=== PATIENT | female | born 1970 | race Caucasian/White ===

== ENCOUNTER → 2021-03-24 10:58 | Outpatient (BNVA) | payer BC, SELFPAY | PROVIDERS: PCP Internal Medicine; Visit Provider Psychiatry & Neurology Neurology ==

== ENCOUNTER → 2021-05-27 09:48 | Outpatient (BNVA) | payer BC, SELFPAY | PROVIDERS: PCP Internal Medicine; Visit Provider Psychiatry & Neurology Neurology | DX: G43.909 Migraine, unspecified, not intractable, without status migrainosus (principal); G47.00 Insomnia, unspecified; F45.8 Other somatoform disorders; R06.83 Snoring | CPT/HCPCS: 99212 ==

== ENCOUNTER 2021-11-17 21:31 | Emergency (ER) | payer OTHER, SELFPAY ==
--- NOTE | ~2021-11-17 | XR_ITS ---
EXAMINATION: XR CHEST CLINICAL INFORMATION: SOB COMPARISON: None TECHNIQUE: 2 views of the chest were obtained. FINDINGS: No significant abnormality is noted involving the heart, lungs, mediastinum, bony thorax or soft tissues. XR/XR chest 2V IMPRESSION: Unremarkable chest examination.
[2021-11-17 21:40] VITALS: BP 153/100; PULSE 119; RESP 20; TEMP 36.8; O2SAT 97; BMI 32.2
[2021-11-17 23:09] LABS: MANUAL DIFF FLAG NO
[2021-11-17 23:11] LABS: Basophils Percent Auto 0.4 % (0-2); Eosinophils Absolute Auto 0.1 X10*3/uL (0.0-0.4); Eosinophils Percent Auto 1.4 % (0-4); Hematocrit 41.5 % (37.0-47.0); Hemoglobin 13.9 g/dl (12.0-16.0); Imm Gran Abs Auto 0.02 X10*3/uL (0.00-0.03); Imm Gran Pct Auto 0.2 % (0.0-0.4); Lymphocytes Absolute Auto 3.7 X10*3/uL (1.2-4.9); Lymphocytes Percent Auto 39.1 % (20-40); Mean Corpuscular HGB Conc 33.5 g/dl (31.0-35.0); Mean Corpuscular Hemoglobin 30.3 pg (27.0-33.0); Mean Corpuscular Volume 90.4 fL (80.0-98.0); Mean Platelet Volume 9.1 fL (9.4-12.3); Monocytes Absolute Auto 0.7 X10*3/uL (0.1-1.2); Monocytes Percent Auto 7.7 % (2-11); Neutrophils Absolute Auto 4.9 x10*3/uL (2.0-8.3); Neutrophils Percent Auto 51.2 % (45-73); Platelet Count 349 X10*3/uL (160-400); Red Blood Count 4.59 X10*6/uL (4.20-5.50); Red Cell Distribution Width 13.4 % (11.0-16.0); White Blood Count 9.5 X10*3/uL (4.8-10.8)
[2021-11-17 23:33] LABS: Alanine Aminotransferase 21 U/L (0-31); Albumin Level 4.2 g/dL (3.5-5.0); Alkaline Phosphatase 41 U/L (39-117); Anion Gap 15 (12-20); Aspartate Amino Transferase 21 U/L (5-31); Bilirubin Total 0.4 mg/dL (0.0-1.0); Blood Urea Nitrogen 17 mg/dL (9-16); Calcium 9.4 mg/dL (8.4-10.2); Carbon Dioxide 24 mmol/L (22-29); Chloride 106 mmol/L (96-108); Creatinine Clr Calc Pharmacy 79.8; Estimated Glomerular Filt Rate > 60; Glucose Random 89 mg/dL (60-115); Potassium 4.3 mmol/L (3.3-5.1); Sodium 141 mmol/L (135-145); Total Protein 7.3 g/dL (6.5-8.0)
[2021-11-18 01:16] VITALS: BP 163/99; PULSE 98; RESP 13; TEMP 36.9; O2SAT 95
--- NOTE | 2021-11-18 01:52 | ED_ITS ---
HPI - URI/Sore Throat General Chief Complaint: Upper Respiratory Symptoms Stated Complaint: asthma, cough, nausea Time Seen by Provider: 11/18/21 01:35 History of Present Illness HPI Narrative: Patient is a 51-year-old female presents today with have a history asthma. History of COVID back in January 2021. Presents today with coughing congestion upper respiratory symptoms. Ongoing for the last few months. Patient is not vaccinated. Claims that the albuterol is not working. Was given multiple courses of steroid on an off. Patient from home. No change in environment. No hospitalization. No history of congestive heart failure. Related Data Home Medications Medication Instructions Recorded Confirmed albuterol sulfate 2.5 mg/3 mL 2.5 mg inhalation Q6H 03/24/21 (0.083 %) solution for nebulization cetirizine 10 mg tablet 10 mg PO DAILY PRN 03/24/21 eletriptan 40 mg tablet 40 mg PO Q2-4H PRN 03/24/21 levonorgestrel 0.15 mg-ethinyl 1 tab PO DAILY 03/24/21 estradiol 0.03 mg tablet metformin 500 mg tablet 500 mg PO DAILY 03/24/21 mometasone 100 mcg/actuation HFA 1 puff inhalation BID 03/24/21 aerosol inhaler norethindrone acetate 1 mg-ethinyl 1 tab PO DAILY 03/24/21 estradiol 20 mcg tablet (Loestrin) phentermine 15 mg capsule 15 mg PO DAILY 03/24/21 simvastatin 40 mg tablet 40 mg PO BEDTIME 03/24/21 topiramate 50 mg tablet 50 mg PO BID 03/24/21 trazodone 50 mg tablet 50 mg PO DAILY 03/24/21 Previous Rx's Medication Instructions Recorded gabapentin 100 mg capsule See Rx Instructions PO BEDTIME 90 05/27/21 days #270 caps magnesium glycinate 100 mg tablet 200 mg PO BEDTIME #180 tabs 05/27/21 riboflavin (vitamin B2) 400 mg 400 mg PO QAM #30 tabs 05/27/21 tablet azithromycin 250 mg tablet See Rx Instructions PO .COMPLEX 11/18/21 upper resp infection #6 tabs prednisone 20 mg tablet 40 mg PO DAILY #10 tabs 11/18/21 Allergies Allergy/AdvReac Type Severity Reaction Status Date / Time SEASONAL ALLERGIES Allergy Mild SNEEZING Uncoded 11/17/21 21:42 RUNNY NOSE Review of Systems Review of Systems: Positive coughing upper respiratory symptoms Not vaccinated Yes all other systems are reviewed and are negative [facility] Past Medical History Attestation statement: The following information was validated with the patient. Medical History Allergic rhinitis Asthma Hyperlipidemia Insomnia Irritable bowel syndrome Lumbar spondylosis Migraines Obesity Surgical History H/O wrist surgery Family History Family History Mother Thyroid disease CAD (coronary artery disease) Father Stroke Angina at rest Maternal Grandmother Breast cancer Recurrent strokes Social History Social History Alcohol intake: current Alcohol intake frequency: holidays/special occasions only Patient Tobacco Use Status: Never used Tobacco Advance Directives: No Advance Directives Information Provided: No Physical Exam Vital Signs: Vital Signs: Last Vital Signs Temp 98.4 F 11/18/21 02:57 Pulse 69 11/18/21 02:57 Resp 17 11/18/21 02:57 BP 135/94 H 11/18/21 02:57 Pulse Ox 96 11/18/21 02:57 O2 Del Method 11/18/21 02:57 BMI result Body Mass Index 32.2 Appearance: Alert. Oriented X3. No acute distress. Eyes: Pupils equal, round and reactive to light. ENT: Pharynx normal. Neck: Normal inspection. Neck supple. No lymph nodes noted. No crepitus CVS: Normal heart rate and rhythm. Pulses normal. Normal S1 and S2 Respiratory: No respiratory distress. Breath sounds normal. No Wheezing. No rales Abdomen: Soft and nontender. No rigidity. No distention. good BS x4 Skin: Skin warm and dry. Normal skin color. Normal skin turgor. Extremities: No lower extremity edema. Neurovascular intact to all extremities. No Lacerations. No Rash Neuro: Oriented X 3. No motor deficit. No sensory deficit. Moving all extermities. No slurred speech MDM - URI/Sore Throat MDM Narrative Medical decision making narrative: O2 sat 99% on room air. No distress. Positive coughing repetitively will get an x-ray. Will go ahead and check COVID status as patient not immunized. In stable condition. Lungs are clear O2 sats 99% on RA COVID test was negative Medical Records Attestation: I reviewed the patient's medical records. Lab Data Attestation: I reviewed the patient's lab results. Result diagrams: 11/17/21 23:05 11/17/21 23:05 Labs: Lab Results 11/17/21 11/17/21 11/18/21 Range/Units 23:05 23:05 02:21 WBC 9.5 (4.8-10.8) X10*3/uL RBC 4.59 (4.20-5.50) X10*6/uL Hgb 13.9 (12.0-16.0) g/dl Hct 41.5 (37.0-47.0) % MCV 90.4 (80.0-98.0) fL MCH 30.3 (27.0-33.0) pg MCHC 33.5 (31.0-35.0) g/dl RDW 13.4 (11.0-16.0) % Plt Count 349 (160-400) X10*3/uL MPV 9.1 L (9.4-12.3) fL Immature Gran % (Auto) 0.2 (0.0-0.4) % Neut % (Auto) 51.2 (45-73) % Lymph % (Auto) 39.1 (20-40) % [place] % (Auto) 7.7 (2-11) % Eos % (Auto) 1.4 (0-4) % Baso % (Auto) 0.4 (0-2) % Lymph # (Auto) 3.7 (1.2-4.9) X10*3/uL [place] # (Auto) 0.7 (0.1-1.2) X10*3/uL Eos # (Auto) 0.1 (0.0-0.4) X10*3/uL Baso # (Auto) 0.0 (0.0-0.2) X10*3/uL Abs Immat Gran (auto) 0.02 (0.00-0.03) X10*3/uL Absolute Neuts (auto) 4.9 (2.0-8.3) x10*3/uL Absolute Nucleated RBC 0.000 (0.0-0.012) X10*3/uL Nucleated RBC % (auto) 0.0 (0.0-0.2) /100WBC Sodium 141 (135-145) mmol/L Potassium 4.3 (3.3-5.1) mmol/L Chloride 106 (96-108) mmol/L Carbon Dioxide 24 (22-29) mmol/L Anion Gap 15 (12-20) BUN 17 H (9-16) mg/dL Creatinine 0.77 (0.5-1.4) mg/dL Estim Creat Clear Calc 79.8 Estimated GFR > 60 Random Glucose 89 (60-115) mg/dL Calcium 9.4 (8.4-10.2) mg/dL Total Bilirubin 0.4 (0.0-1.0) mg/dL AST 21 (5-31) U/L ALT 21 (0-31) U/L Alkaline Phosphatase 41 (39-117) U/L Total Protein 7.3 (6.5-8.0) g/dL Albumin 4.2 (3.5-5.0) g/dL COVID-19 (FERNANDO) Negative (Negative) COVID-19 Clin Com See Note Discharge Plan Discharge Clinical Impression: Cough, Asthma Patient Disposition: Home, Self-Care Instructions: Asthma (ED) Prescriptions: New azithromycin 250 mg tablet See Rx Instructions .ROUTE .COMPLEX Qty: 6 0RF Rx Instructions: take 500 mg today (day 1), then 250 mg for 4 days (days 2-5) prednisone 20 mg tablet 40 mg PO DAILY Qty: 10 0RF No Action simvastatin 40 mg tablet 40 mg PO BEDTIME cetirizine 10 mg tablet 10 mg PO DAILY PRN trazodone 50 mg tablet 50 mg PO DAILY phentermine 15 mg capsule 15 mg PO DAILY Rx Instructions: must administer 2 hours after breakfast eletriptan 40 mg tablet 40 mg PO Q2-4H PRN Rx Instructions: do not exceed 2 doses per 24 hrs albuterol sulfate 2.5 mg /3 mL (0.083 %) solution for nebulization 2.5 mg inhalation Q6H mometasone 100 mcg/actuation HFA aerosol inhaler 1 puff inhalation BID levonorgestrel-ethinyl estrad 0.15-0.03 mg tablet 1 tab PO DAILY norethindrone ac-eth estradiol [Loestrin 03/24 ()] 1-20 mg-mcg tablet 1 tab PO DAILY metformin 500 mg tablet 500 mg PO DAILY topiramate 50 mg tablet 50 mg PO BID gabapentin 100 mg capsule See Rx Instructions PO BEDTIME 90 Days Qty: 270 6RF Rx Instructions: 1-3 capsules PO bedtime; magnesium glycinate 100 mg tablet 200 mg PO BEDTIME Qty: 180 6RF riboflavin (vitamin B2) 400 mg tablet 400 mg PO QAM Qty: 30 6RF Referrals: Annette Lara MD [Primary Care Provider] -
[2021-11-18] MEDS: predniSONE 20 MG TABLET 60 MG PO (02:12)
[2021-11-18 02:42] LABS: COVID-19 Test Negative (Negative); IDNOW Serial# 16C4AD1C
[2021-11-18 02:57] VITALS: BP 135/94; PULSE 69; RESP 17; TEMP 36.9; O2SAT 96
== END 2021-11-19 02:58 | disposition home or self-care (01) ==
PROVIDERS: Emergency Provider Emergency Medicine Emergency Medical Services; PCP Family Medicine
DX: J45.909 Unspecified asthma, uncomplicated (principal); Z20.822 Contact with and (suspected) exposure to COVID-19; E78.5 Hyperlipidemia, unspecified; E66.9 Obesity, unspecified; Z68.32 Body mass index [BMI] 32.0-32.9, adult; Z79.02 Long term (current) use of antithrombotics/antiplatelets
CPT/HCPCS: 36415; 71046; 80053; 85025; 87635; 99283

== ENCOUNTER 2021-12-08 10:33 | Inpatient (IN) | payer OTHER, SELFPAY ==
--- NOTE | ~2021-12-08 | CT_ITS ---
EXAMINATION: CT ABDOMEN AND PELVIS WITHOUT CONTRAST CLINICAL INFORMATION: Right flank pain. Question stones COMPARISON: CT abdomen pelvis 10/25/2014 TECHNIQUE: Multidetector volumetric imaging was performed from the superior aspect of the liver through the pubic symphysis. Sagittal and coronal reformatted images were obtained on the technologist's workstation. This CT examination was performed using dose optimization techniques as appropriate, variously including the following: *Automated exposure control *Adjustment of mA and/or kV according to patient size (this includes techniques or standardized protocols for targeted exams where dose is matched to indication/reason for exam; i.e. extremities or head) *Use of iterative reconstruction technique DLP: 584 mGy-cm FINDINGS: LUNG BASES: The visualized lung bases are unremarkable. LIVER, GALLBLADDER, AND BILIARY TREE: The liver is normal in size, shape, and attenuation. No focal hepatic lesion or biliary ductal dilatation is present. The gallbladder is unremarkable with no evidence of radiopaque gallstones, gallbladder wall thickening, or obvious pericholecystic inflammatory changes. PANCREAS: Unremarkable. SPLEEN: Unremarkable. ADRENAL GLANDS: Unremarkable. KIDNEYS AND URETERS: 5 mm right proximal ureteral stone with mild hydronephrosis. 4 mm nonobstructing right midpole renal calculus. No other renal calculi. No renal lesion. No perinephric stranding or collection. BLADDER: Unremarkable. GASTROINTESTINAL TRACT: Mild colonic diverticulosis primarily involving the ascending colon. No evidence of acute diverticulitis. No dilated bowel loops. No bowel wall thickening. Normal appendix. No ascites or free air. ABDOMINAL WALL: No significant hernia is appreciated. LYMPH NODES: No lymphadenopathy. VASCULAR: Normal caliber abdominal aorta. Minimal vascular calcification. PELVIC VISCERA: Unremarkable. OSSEOUS STRUCTURES: Unremarkable. CT/CT abdomen pelvis wo IV con IMPRESSION: 1. 5 mm right proximal ureteral stone with mild right hydronephrosis. 2. 4 mm nonobstructing right renal calculus.
--- NOTE | ~2021-12-08 | FL_ITS ---
EXAMINATION: XR FLUOROSCOPY WITH IMAGES CLINICAL INFORMATION: Right-sided retrograde exam COMPARISON: Previous CT of the abdomen and pelvis 12/08/2021 TECHNIQUE: Fluoroscopy performed by Dr. Chavez Corral. Fluoroscopy time: 25 seconds. Cumulative Dose: 8.3 mGy. DAP: Gycm2. Images: 3. FINDINGS: Initial image demonstrates contrast opacification of the right renal collecting system and proximal ureter which is slightly dilated. There is a filling defect in the right renal pelvis questionable for stone. Second image demonstrates a wire in the right proximal ureter. Final image demonstrates the proximal end of the internal ureteral stent in the right renal pelvis. FL/FL guidance in OR IMPRESSION: Fluoroscopy guidance for right urologic procedure.
[2021-12-08 10:56] VITALS: BP 152/92; PULSE 89; RESP 20; TEMP 37.7; O2SAT 95; BMI 33.2
[2021-12-08 11:12] LABS: Basophils Percent Auto 0.3 % (0-2); Eosinophils Percent Auto 0.4 % (0-4); Hematocrit 42.2 % (37.0-47.0); Hemoglobin 14.1 g/dl (12.0-16.0); Imm Gran Abs Auto 0.04 X10*3/uL (0.00-0.03); Imm Gran Pct Auto 0.4 % (0.0-0.4); Lymphocytes Absolute Auto 2.3 X10*3/uL (1.2-4.9); MANUAL DIFF FLAG NO; Mean Corpuscular HGB Conc 33.4 g/dl (31.0-35.0); Mean Corpuscular Hemoglobin 29.9 pg (27.0-33.0); Mean Corpuscular Volume 89.4 fL (80.0-98.0); Mean Platelet Volume 8.9 fL (9.4-12.3); Monocytes Absolute Auto 0.4 X10*3/uL (0.1-1.2); Monocytes Percent Auto 3.9 % (2-11); Neutrophils Absolute Auto 6.8 x10*3/uL (2.0-8.3); Platelet Count 316 X10*3/uL (160-400); Red Blood Count 4.72 X10*6/uL (4.20-5.50); Red Cell Distribution Width 13.3 % (11.0-16.0); White Blood Count 9.6 X10*3/uL (4.8-10.8)
[2021-12-08 11:32] LABS: Alanine Aminotransferase 16 U/L (0-31); Albumin Level 4.2 g/dL (3.5-5.0); Alkaline Phosphatase 34 U/L (39-117); Anion Gap 14 (12-20); Aspartate Amino Transferase 21 U/L (5-31); Bilirubin Direct 0.3 mg/dL (0.0-0.5); Bilirubin Total 0.8 mg/dL (0.0-1.0); Blood Urea Nitrogen 12 mg/dL (9-16); Calcium 8.9 mg/dL (8.4-10.2); Carbon Dioxide 19 mmol/L (22-29); Chloride 107 mmol/L (96-108); Creatinine Clr Calc Pharmacy 86.7; Estimated Glomerular Filt Rate > 60; Glucose Random 90 mg/dL (60-115); Lipase 16 U/L (8-78); Sodium 136 mmol/L (135-145); Total Protein 7.2 g/dL (6.5-8.0)
[2021-12-08 11:55] LABS: Appearance Urine Cloudy; Color Urine Dark Yellow; Glucose Urine UA Negative (Negative); Leukocyte Esterase Urine Trace (Negative); Nitrite Urine Negative (Negative); PH 5.5 (5.0-9.0); Specific Gravity - Urine 1.015 (1.005-1.025); UMIC TRIGGER UACC YES; Urine Blood Large (3+) (Negative); Urine Ketones Negative (Negative); Urine Protein 30 (1+) mg/dL (Neg-Trace)
[2021-12-08 11:59] LABS: UPreg QC Valid YES; Urine Pregnancy NEGATIVE (NEGATIVE)
[2021-12-08 12:15] LABS: Bacteria Urine 1+ (None Seen); Hyaline Casts Urine 0-2 /LPF (0-2); RBC Urine >20 /HPF (0-2); UACC Culture Trigger YES
[2021-12-08] MEDS: Acetaminophen 325 MG TABLET 975 MG PO (20:12)
--- NOTE | 2021-12-08 21:38 | ED_ITS ---
HPI - Abdominal Pain General Chief Complaint: Abdominal Pain Stated Complaint: Stomach & Back Pain Time Seen by Provider: 12/08/21 21:29 Source: patient Mode of arrival: ambulatory Limitations: no limitations History of Present Illness HPI narrative: Patient history of kidney stone about 20 years ago comes here pain the right flank area right upper yesterday off and on getting worse started as dull pain now intermittently become sharp assisted with nausea no vomiting no hematuria no fever no chills Related Data Home Medications Medication Instructions Recorded Confirmed albuterol sulfate 2.5 mg/3 mL 2.5 mg inhalation Q6H 03/24/21 (0.083 %) solution for nebulization eletriptan 40 mg tablet 40 mg PO Q2-4H PRN 03/24/21 levonorgestrel 0.15 mg-ethinyl 1 tab PO DAILY 03/24/21 estradiol 0.03 mg tablet mometasone 100 mcg/actuation HFA 1 puff inhalation BID 03/24/21 12/09/21 aerosol inhaler norethindrone acetate 1 mg-ethinyl 1 tab PO DAILY 03/24/21 estradiol 20 mcg tablet (Loestrin) simvastatin 40 mg tablet 40 mg PO BEDTIME 03/24/21 12/09/21 trazodone 50 mg tablet 50 mg PO DAILY 03/24/21 levalbuterol tartrate 45 2 puff inhalation Q4-6H 12/09/21 12/09/21 mcg/actuation aerosol inhaler norethindrone 1 mg-ethinyl 1 tab PO DAILY 12/09/21 12/09/21 estradiol 10 mcg (24)-iron 10 mcg(2) tablet (Lo Loestrin Fe) tiotropium bromide 18 mcg capsule 1 cap inhalation DAILY 12/09/21 12/09/21 with inhalation device (Spiriva with HandiHaler) Previous Rx's Medication Instructions Recorded gabapentin 100 mg capsule See Rx Instructions PO BEDTIME 90 05/27/21 days #270 caps magnesium glycinate 100 mg tablet 200 mg PO BEDTIME #180 tabs 05/27/21 riboflavin (vitamin B2) 400 mg 400 mg PO QAM #30 tabs 05/27/21 tablet prednisone 20 mg tablet 40 mg PO DAILY #10 tabs 11/18/21 Allergies Allergy/AdvReac Type Severity Reaction Status Date / Time pseudoephedrine Allergy Palpitation Verified 12/08/21 10:59 [From Uliafetone] s SEASONAL ALLERGIES Allergy Mild SNEEZING Uncoded 11/17/21 21:42 RUNNY NOSE Review of Systems Review of Systems Yes all other systems are reviewed and are negative [facility] Past Medical History Medical History Allergic rhinitis Asthma Hyperlipidemia Insomnia Irritable bowel syndrome Lumbar spondylosis Migraines Obesity Surgical History H/O wrist surgery Family History Family History Mother Thyroid disease CAD (coronary artery disease) Father Stroke Angina at rest Maternal Grandmother Breast cancer Recurrent strokes Social History Social History Alcohol intake: current Alcohol intake frequency: holidays/special occasions on ly Patient Tobacco Use Status: Never used Tobacco Advance Directives: No Advance Directives Information Provided: No Patient : No Physical Exam ED Vital Signs: Vital Signs - 24 hr 12/08/21 10:56 12/08/21 22:08 12/09/21 00:02 Temperature 99.9 F 97.7 F 98.1 F Pulse Rate 89 86 83 Respiratory Rate 20 14 17 Blood Pressure 152/92 H 140/96 H 136/94 H Pulse Oximetry 95 96 96 Oxygen Delivery Method Room Air Room Air Room Air BMI result Body Mass Index 33.2 Appearance: Alert. Oriented X3. Mild distress. Eyes: No pallor or icterus ENT: Pharynx normal. Oral Mucosa moist Neck: Normal inspection. Neck supple. CVS: Normal heart rate and rhythm. Pulses normal. Respiratory: No respiratory distress. Equal air entry bilateral, no wheezing/rales/rhonchi Abdomen: Soft and nontender. Bowel sounds are present, no mass palpable, right CVA tenderness ++ Skin: Skin warm and dry. Normal skin color. Normal skin turgor. Extremities: No lower extremity edema. No calf tenderness Neuro: Oriented X 3. No motor deficit. MDM - Abdominal Pain MDM Narrative Medical decision making narrative: [id number] with 5 mm right proximal ureteral stone with hydronephrosis will refer to urologist for lithotripsy patient received 8 mg of morphine Toradol Flomax still complaining of pain feel uncomfortable going home will admit patient under urology service case discussed Dr. Steward agree for admission Differential Diagnosis Differential diagnosis: Likely renal colic Lab Data Attestation: I reviewed the patient's lab results. Result diagrams: 12/08/21 11:06 12/08/21 11:30 Labs: Lab Results 12/08/21 12/08/21 12/08/21 Range/Units 11:06 11:30 11:41 WBC 9.6 (4.8-10.8) X10*3/uL RBC 4.72 (4.20-5.50) X10*6/uL Hgb 14.1 (12.0-16.0) g/dl Hct 42.2 (37.0-47.0) % MCV 89.4 (80.0-98.0) fL MCH 29.9 (27.0-33.0) pg MCHC 33.4 (31.0-35.0) g/dl RDW 13.3 (11.0-16.0) % Plt Count 316 (160-400) X10*3/uL MPV 8.9 L (9.4-12.3) fL Immature Gran % (Auto) 0.4 (0.0-0.4) % Neut % (Auto) 71.0 (45-73) % Lymph % (Auto) 24.0 (20-40) % [place] % (Auto) 3.9 (2-11) % Eos % (Auto) 0.4 (0-4) % Baso % (Auto) 0.3 (0-2) % Lymph # (Auto) 2.3 (1.2-4.9) X10*3/uL [place] # (Auto) 0.4 (0.1-1.2) X10*3/uL Eos # (Auto) 0.0 (0.0-0.4) X10*3/uL Baso # (Auto) 0.0 (0.0-0.2) X10*3/uL Abs Immat Gran (auto) 0.04 H (0.00-0.03) X10*3/uL Absolute Neuts (auto) 6.8 (2.0-8.3) x10*3/uL Absolute Nucleated RBC 0.000 (0.0-0.012) X10*3/uL Nucleated RBC % (auto) 0.0 (0.0-0.2) /100WBC Sodium 136 (135-145) mmol/L Potassium 4.0 (3.3-5.1) mmol/L Chloride 107 (96-108) mmol/L Carbon Dioxide 19 L (22-29) mmol/L Anion Gap 14 (12-20) BUN 12 (9-16) mg/dL Creatinine 0.72 (0.5-1.4) mg/dL Estim Creat Clear Calc 86.7 Estimated GFR > 60 Random Glucose 90 (60-115) mg/dL Calcium 8.9 (8.4-10.2) mg/dL Total Bilirubin 0.8 (0.0-1.0) mg/dL Direct Bilirubin 0.3 (0.0-0.5) mg/dL AST 21 (5-31) U/L ALT 16 (0-31) U/L Alkaline Phosphatase 34 L (39-117) U/L Total Protein 7.2 (6.5-8.0) g/dL Albumin 4.2 (3.5-5.0) g/dL Lipase 16 (8-78) U/L Urine Color Dark Yellow Urine Appearance Cloudy Urine pH 5.5 (5.0-9.0) Ur Specific [place] 1.015 (1.005-1.025) Urine Protein 30 (1+) H (Neg-Trace) mg/dL Urine Glucose (UA) Negative (Negative) mg/dL Urine Ketones Negative (Negative) mg/dL Urine Blood Large (3+) H (Negative) Urine Nitrite Negative (Negative) Ur Leukocyte Esterase Trace H (Negative) Urine RBC >20 H (0-2) /HPF Urine WBC 6-10 H (0-5) /HPF Ur Squamous Epith Cells 11-20 (0-2) /HPF Urine Bacteria 1+ (None Seen) Hyaline Casts 0-2 (0-2) /LPF Urine Test (NEGATIVE) 12/08/21 Range/Units 11:41 WBC (4.8-10.8) X10*3/uL RBC (4.20-5.50) X10*6/uL Hgb (12.0-16.0) g/dl Hct (37.0-47.0) % MCV (80.0-98.0) fL MCH (27.0-33.0) pg MCHC (31.0-35.0) g/dl RDW (11.0-16.0) % Plt Count (160-400) X10*3/uL MPV (9.4-12.3) fL Immature Gran % (Auto) (0.0-0.4) % Neut % (Auto) (45-73) % Lymph % (Auto) (20-40) % [place] % (Auto) (2-11) % Eos % (Auto) (0-4) % Baso % (Auto) (0-2) % Lymph # (Auto) (1.2-4.9) X10*3/uL [place] # (Auto) (0.1-1.2) X10*3/uL Eos # (Auto) (0.0-0.4) X10*3/uL Baso # (Auto) (0.0-0.2) X10*3/uL Abs Immat Gran (auto) (0.00-0.03) X10*3/uL Absolute Neuts (auto) (2.0-8.3) x10*3/uL Absolute Nucleated RBC (0.0-0.012) X10*3/uL Nucleated RBC % (auto) (0.0-0.2) /100WBC Sodium (135-145) mmol/L Potassium (3.3-5.1) mmol/L Chloride (96-108) mmol/L Carbon Dioxide (22-29) mmol/L Anion Gap (12-20) BUN (9-16) mg/dL Creatinine (0.5-1.4) mg/dL Estim Creat Clear Calc Estimated GFR Random Glucose (60-115) mg/dL Calcium (8.4-10.2) mg/dL Total Bilirubin (0.0-1.0) mg/dL Direct Bilirubin (0.0-0.5) mg/dL AST (5-31) U/L ALT (0-31) U/L Alkaline Phosphatase (39-117) U/L Total Protein (6.5-8.0) g/dL Albumin (3.5-5.0) g/dL Lipase (8-78) U/L Urine Color Urine Appearance Urine pH (5.0-9.0) Ur Specific [place] (1.005-1.025) Urine Protein (Neg-Trace) mg/dL Urine Glucose (UA) (Negative) mg/dL Urine Ketones (Negative) mg/dL Urine Blood (Negative) Urine Nitrite (Negative) Ur Leukocyte Esterase (Negative) Urine RBC (0-2) /HPF Urine WBC (0-5) /HPF Ur Squamous Epith Cells (0-2) /HPF Urine Bacteria (None Seen) Hyaline Casts (0-2) /LPF Urine Test NEGATIVE (NEGATIVE) Imaging Data CT scan - abdomen: Attestation: I personally reviewed and interpreted this imaging study as follows: Radiologist's impression: CT/CT abdomen pelvis wo IV con IMPRESSION: ? 1. 5 mm right proximal ureteral stone with mild right hydronephrosis. 2. 4 mm nonobstructing right renal calculus.? ? Discharge Plan Discharge Clinical Impression: Calculus of kidney Patient Disposition: Admitted As Inpatient
[2021-12-08] MEDS: Tamsulosin HCL 0.4 MG CAPSULE PO (22:03)
[2021-12-08] MEDS: Morphine Sulfate 4 MG/ML CARTRIDGE IVPUSH ×2 (22:03→23:01)
[2021-12-08] MEDS: 0.9 % Sodium Chloride 1,000 ML 999 ML IV (22:03)
[2021-12-08] MEDS: ondansetron HCL 4 MG/2 ML VIAL IVPUSH (22:03)
[2021-12-08 22:08] VITALS: BP 140/96; PULSE 86; RESP 14; TEMP 36.5; O2SAT 96
[2021-12-08] MEDS: Ketorolac Tromethamine 30 MG/ML VIAL IVPUSH (22:15)
--- NOTE | 2021-12-08 22:16 | PC.NURSE ---
Pt aox4. Breaths are even and unlabored. Skin is warm pink and dry. Reports right sided flank pain, 2/10. Pt medication and aware of plan of care. Will continue to monitor.
--- NOTE | 2021-12-08 23:05 | PC.NURSE ---
Pt aox4 with family at the bedside. Breaths are even and unlabored. Pt reports right flank abd pain, 4/10. Pt medicated as ordered. Will continue to monitor.
[2021-12-09] VITALS (15 sets, daily range): BP systolic 101–140; BP diastolic 68–100; PULSE 71–99; RESP 12–20; TEMP 36.2–36.8; O2SAT 96–99
--- OUTSIDE RECORDS SUMMARY | 2021-12-09 00:50 | XMS_ITS | Continuity of Care Document ---
:1970 Author Organization [facility] Address [address] [place] [id number]- Care Team Providers Name Role Phone Perry Valencia MD Primary Care Physician [place] [facility] [place] 02/07/21 - 02/07/[address] [address]- Encounter Diagnosis COVID-19 (Final) - 02/07/21 Discharge Disposition: A-D/C Home Attending Physician: Halima Arora MD Admitting Physician: Halima Arora MD Referring Physician: Not on Staff, Referring MD Allergies, Adverse Reactions, Alerts Substance Reaction Severity Status NKA Active Medications Colace sodium 100 mg oral capsule 1 capsule = 100 mg, By Mouth, 2 times a day, PRN for constipation, # 20 capsule, 0 Refills, Maintenance, Capsule Start Date: 06/27/10 Status: OrderedCrutches See Instructions, # 1 pair, Maintenance, WBAT left leg, 09/11/12 10:16:35 Start Date: 09/11/12 Status: Ordereddoxycycline hyclate 100 mg oral capsule 1 capsule = 100 mg, By Mouth, 2 times a day, # 6 capsule, 0 Refills, Maintenance, Capsule Start Date: 06/23/10 Stop Date: 06/26/10 Status: Orderedeletriptan 40 mg oral tablet 1 tablet = 40 mg, By Mouth, Once, PRN as needed for migraine headache, may repeat dose once in 2 hours, # 6 tablet, 0 Refills, Maintenance, 11/25/20 13:10:00 EDT, Tablet, Partial fill upon patient request if the prescription is for a schedule II opioi... Start Date: 11/25/20 Status: Orderedibuprofen 800 mg oral tablet 1 tablet = 800 mg, By Mouth, 3 times a day, PRN Pain, # 30 tablet, 5 Refills, Maintenance, Tablet Start Date: 06/23/10 Status: OrderedLo Loestrin Fe oral tablet 1 tablet, By Mouth, Daily, # 84 tablet, 0 Refills, Maintenance, 11/25/20 13:08:00 EDT, Tablet, Partial fill upon patient request if the prescription is for a schedule II opioid drug. Start Date: 11/25/20 Status: OrderedmetFORMIN 500 mg oral tablet 1 tablet = 500 mg, By Mouth, Daily, with meals, # 30 tablet, 0 Refills, Maintenance, 11/25/20 13:14:00 EDT, Tablet, Partial fill upon patient request if the prescription is for a schedule II opioid drug. Start Date: 11/25/20 Status: Orderedphentermine 37.5 mg oral capsule 1 capsule = 37.5 mg, By Mouth, Daily in AM, at least one hour after meals, 0 Refills, Maintenance, 11/25/20 13:12:00 EDT, Capsule, Partial fill upon patient request if the prescription is for a schedule II opioid drug. Start Date: 11/25/20 Status: OrderedPrenatal Multivitamins By Mouth, Daily, 0 Refills, Maintenance Start Date: 12/24/10 Status: OrderedRobitussin CoughGels 15 mg oral capsule 1 capsule = 15 mg, By Mouth, Every 8 hours, PRN as needed for cough, for 3 days, # 12 capsule, 0 Refills, Acute 02/10/21 18:52:00 EST, 02/07/21 18:52:00 EST, Capsule, [facility]/pharmacy #[id number], Partial fill upon patient request if the prescription is for a s... Start Date: 02/07/21 Stop Date: 02/10/21 Status: Orderedsimvastatin 40 mg oral tablet 40 mg, 1, tablet, By Mouth, Daily at bedtime, # 30 tablet, Refills 0, Maintenance, 11/25/20 13:10:00EDT, Partial fill upon patient request if the prescription is for a schedule II opioid drug. Start Date: 11/25/20 Status: Orderedtopiramate 50 mg oral tablet 1 tablet = 50 mg, By Mouth, 2 times a day, # 60 tablet, 0 Refills, Maintenance, 11/25/20 13:13:00 EDT, Tablet, Partial fill upon patient request if the prescription is for a schedule II opioid drug. Start Date: 11/25/20 Status: OrderedtraZODone 50 mg oral tablet 25 mg, 0.5, tablet, By Mouth, Daily at bedtime, # 15 tablet, Refills 0, Maintenance, 11/25/20 13:12:00 EDT, Partial fill upon patient request if the prescription is for a schedule II opioid drug. Start Date: 11/25/20 Status: OrderedValium 5 mg oral tablet 1 tablet = 5 mg, By Mouth, 4 times a day, PRN for anxiety, # 10 tablet, 0 Refills, Maintenance, Tablet Start Date: 06/27/10 Status: OrderedXopenex Neb, 3 times a day, 0 Refills, Maintenance, 09/03/13 10:35:08 Start Date: 09/03/13 Status: Ordered Problem List Condition Effective Dates Status Health Status Informant Anxiety(Confirmed) Active Asthma(Confirmed) Active Migraine(Confirmed) Active Results Radiology Reports Exam Date Time Procedure Performing Provider Status 02/07/21 1:31 PM Chest 2 Views Frontal and Lat Hernan , Tonia; Au th (Verified) Notes:(Chest 2 Views Frontal and Lat) Reason For Exam: CoughRESULT: Chest 2 Views Frontal and Lat Chest 2 Views Frontal and Lat Hx of Present Illness: Covid + 11 26. Placed on doxy for PNA. Not getting better. COMPARISON: Chest radiograph 01/06/2016. FINDINGS: LINES AND TUBES: None. LUNGS AND PLEURA: Bilateral faint linear midlung opacities. Normal pulmonary vascularity. No pleural effusion. No pneumothorax. HEART, MEDIASTINUM AND ALICE: Heart is normal in size. Normal upper mediastinal and hilar contour. BONES AND SOFT TISSUES: No acute abnormality. IMPRESSION: Bilateral midzone linear opacities may most likely represent atelectasis versus consolidation. I have personally reviewed the images and I agree with this report. WSN: [id number] Ordering Physician: Jaquelin Moeller Dictated By: Rasta Reardon MD Dictated Date/Time: 02/07/21 2:29 pm Reviewed By: Rolando Romano MD Signed By: Rolando Romano MD Signed Date/Time: 02/07/21 2:34 pm Transcribed By: ALEJANDRA Transcribed Date/Time: 02/07/21 1:50 pm Vital Signs Most recent to oldest 1 2 3 [Reference Range]: Height 154 cm 154 cm (02/07/21 7:06 PM) (02/07/21 2:35 PM) Weight 63 kg 63 kg (02/07/21 7:06 PM) (02/07/21 2:35 PM) Oxygen Saturation [94-100 99 % 100 % 100 % %] (02/07/21 7:06 PM) (02/07/21 5:00 PM) (02/07/21 3:3 0 PM) Pulse Rate [55-90 bpm] 99 bpm 108 bpm 106 bpm *H* *H* *H* (02/07/21 7:06 PM) (02/07/21 5:00 PM) (02/07/21 3:3 0 PM) Body Mass Index 26.56 [18.5-24.99] *H* (02/07/21 7:06 PM) Blood Pressure 138/94 mm Hg 154/99 mm Hg 114/84 mm Hg [90-138/55-84 mm Hg] (02/07/21 7:06 PM) *H* (02/07/21 3:30 PM) (02/07/21 5:00 PM) Respiratory Rate [16-30 27 br/min 24 br/min 24 br/mi n br/min] (02/07/21 7:06 PM) (02/07/21 5:00 PM) (02/07/21 3:3 0 PM) Temperature [96.8-100.4 98.8 DegF 98.4 DegF 98.3 Deg F DegF] (02/07/21 7:06 PM) (02/07/21 2:35 PM) (02/07/21 11: 58 AM) Mode of Delivery (Oxygen) Room air Room air Room a ir (02/07/21 7:06 PM) (02/07/21 5:00 PM) (02/07/21 3:3 0 PM) Blood pressure sites Arm, right Arm, left Arm, left (02/07/21 7:06 PM) (02/07/21 5:00 PM) (02/07/21 3:3 0 PM) Temperature Route Oral Oral Oral (02/07/21 7:06 PM) (02/07/21 2:35 PM) (02/07/21 11: 58 AM) Dry Weight 63 kg 63 kg (02/07/21 7:06 PM) (02/07/21 2:35 PM) Weight Obtained Via Patient/family stated (02/07/21 2:35 PM) Social History Social History Type Response Smoking Status Never (less than 100 in life time) entered on: 02/07/21 Sex
--- OUTSIDE RECORDS SUMMARY | 2021-12-09 00:50 | XMS_ITS | Continuity of Care Document ---
:1970 Author Organization [address] [place] [address]- Care Team Providers Name Role Phone Annie CARCAMO, Perry Primary Care Physician [place] [facility] [place] - 12/25/[address], [address] [place], [place] [address] Attending Physician: Farhan Sierra Admitting Physician: AdmFarhan blackman Referring Physician: Admtr, ArEileen Allergies, Adverse Reactions, Alerts Substance Reaction Severity [...] 0 Refills, Maintenance Start Date: 12/24/10 Status: Orderedsimvastatin 40 mg oral tablet 40 [...]
--- OUTSIDE RECORDS SUMMARY | 2021-12-09 00:50 | XMS_ITS | Continuity of Care Document ---
:1970 Author Organization [address] [place] [address]- Care Team Providers Name Role Phone Annie CARCAMO, Perry Primary Care Physician Encounter [facility] [place] Date(s): 10/08/20 - 11/07/[address], [address] [place], [place] [address] Allergies, Adverse Reactions, Alerts Substance Reaction Severity [...] Start Date: 06/23/10 Stop Date: 06/26/10 Status: Orderedibuprofen 800 mg oral tablet 1 tablet = 800 mg, By Mouth, 3 times a day, PRN Pain, # 30 tablet, 5 Refills, Maintenance, Tablet Start Date: 06/23/10 Status: OrderedPercocet-5/325 325 mg-5 mg oral tablet 1 tablet, By Mouth, Every 4 hours, PRN for pain, # 20 tablet, 0 Refills, Maintenance, Tablet Start Date: 06/27/10 Status: OrderedPrenatal Multivitamins By Mouth, Daily, 0 Refills, Maintenance Start Date: 12/24/10 Status: OrderedPulmicort Flexhaler Inhalation, 2 times a day, 0 Refills, Maintenance, 09/03/13 10:35:15 Start Date: 09/03/13 Status: OrderedValium 5 mg oral tablet 1 [...]
--- OUTSIDE RECORDS SUMMARY | 2021-12-09 00:50 | XMS_ITS | Continuity of Care Document ---
:1970 Author Organization [facility] Address [address] [facility], [address] [place] [address]- Care Team Providers Name Role Phone Annie CARCAMO, Perry Primary Care Physician Encounter 11/28/21 - 12/05/21 [facility] [address], [address] [place] [address]- Attending Physician: Melina Rodriguez MD Admitting Physician: Melina Rodriguez MD Referring Physician: Melina Rodriguez MD Allergies, Adverse Reactions, Alerts No Known Allergies Medications Colace sodium 100 mg oral capsule [...] Date: 09/03/13 Status: Ordered Problem List Condition Confirmation Course Effective Dates Status Health Stat us Informant Anxiety Confirmed Active Asthma Confirmed Active Migraine Confirmed Active Social History Social History Type Response Smoking Status Never (less than 100 in life time) entered on: 02/07/21 Sex Patient Care team information PersonnelName: Annie CARCAMO, Perry Address: Address: [address] [place] [address]-
--- OUTSIDE RECORDS SUMMARY | 2021-12-09 00:50 | XMS_ITS | Continuity of Care Document ---
:1970 Author Organization [facility] Address [address], [facility] [address] [place] [address]- Care Team Providers Name Role Phone Perry Valencia MD Primary Care Physician Encounter 09/17/20 - 09/24/20 [facility] [address], [facility] [address] [place] [address]- Attending Physician: Perry Valencia MD Admitting Physician: Perry Valencia MD Referring Physician: Perry Valencia MD Allergies, Adverse Reactions, Alerts Substance Reaction [...]
--- OUTSIDE RECORDS SUMMARY | 2021-12-09 00:50 | XMS_ITS | Continuity of Care Document ---
:1970 Author Organization [address], [address] [place] [address]- Care Team Providers Name Role Phone Annie CARCAMO, Perry Primary Care Physician Encounter [facility] [place](s): 11/25/20 - 12/02/[address], [address] [place], [place] [address] Attending Physician: Ross Veras MD Referring Physician: Darrell Vergara Allergies, Adverse Reactions, Alerts Substance Reaction Severity [...] Informant Anxiety(Confirmed) Active Asthma(Confirmed) Active Migraine(Confirmed) Active Vital Signs Most recent to oldest [Reference Range]: 1 Height 155 cm (11/25/20 1:02 PM) Weight 72.9 kg (11/25/20 1:02 PM) Body Mass Index [18.5-24.99] 30.34 *>HHI* (11/25/20 1:02 PM)
[2021-12-09 01:03] LABS: COVID-19 Test Negative (Negative)
[2021-12-09] MEDS: Dextrose 5 % and Lactated Ring 1,000 ML 125 ML IVCONT ×2 (01:29→12:15)
--- NOTE | 2021-12-09 01:35 | PC.NURSE ---
Pt aox4. Breaths even and unlabored. Reports pain has improved, 03/14. Eye covering provided. Will continue to monitor.
[2021-12-09] MEDS: Ketorolac Tromethamine 15 MG/ML VIAL IVPUSH ×3 (01:40→19:15)
--- NOTE | 2021-12-09 04:48 | PC.NURSE ---
Pt asleep with even and unlabored breaths and equal chest rise. Will continue to monitor.
--- NOTE | 2021-12-09 07:00 | PC.NURSE ---
report received from night nurse EJ Goldsmith Pt resting comfortably in bed, went to the restroom and walked with a steady gait. Currently has D5LR running at 125 an hour, IV patent and asymptomatic. Currently reports no pain
[2021-12-09] MEDS: 0.9 % Sodium Chloride Flush 3 ML SYRINGE IVFLUSH (07:08)
--- NOTE | 2021-12-09 10:21 | P.HPGS_ITS ---
History of Present Illness History of Present Illness Date of Service: 12/09/21 Chief complaint: Right Ureteral Stone, Right Hydronephrosis, pain Narrative: Carmen Washburn is a 51 year old female the patient has history of kidney stone about 20 years ago comes here pain the right flank area right upper yesterday off and on getting worse started as dull pain now intermittently become sharp assisted with nausea no vomiting no hematuria no fever no chills Review of Systems Review of Systems: Yes all other systems are reviewed and are negative [facility] Past Medical History Medical History Allergic rhinitis Asthma Hyperlipidemia Insomnia Irritable bowel syndrome Lumbar spondylosis Migraines Obesity Family History Family History Mother Thyroid disease CAD (coronary artery disease) Father Stroke Angina at rest Maternal Grandmother Breast cancer Recurrent strokes Surgical History Surgical History H/O wrist surgery Social History Social History Household Members: Family Housing: House Do you presently have visiting nurse or other home services: No Alcohol intake: current Alcohol intake frequency: holidays/special occasions only Patient Tobacco Use Status: Never used Tobacco Use of substances other than those prescribed or required for medical reasons: No Have you been hit, kicked, punched, or otherwise hurt by someone within the past year? If so, by whom?: No Advance Directives: No Advance Directives Information Provided: No Do you have thoughts of harming others: None Do you have a plan to hurt others: No Plan Recently lost weight without trying: No Eating poorly because of decreased appetite: No Nutrition Risks: No Nutritional Risk Patient : No : No Poor oral hygiene: No Meds Allergies Allergy/AdvReac Type Severity Reaction Status Date / Time pseudoephedrine Allergy Palpitation Verified 12/08/21 10:59 [From Boris] cathie SEASONAL ALLERGIES Allergy Mild SNEEZING Uncoded 11/17/21 21:42 RUNNY NOSE Active Medications: Current Medications Acetaminophen (Acetaminophen 325 Mg Tablet) 650 mg PO Q6H PRN PRN Reason: Headache Atorvastatin Calcium (Atorvastatin Calcium 20 Mg Tablet) 20 mg PO BEDTIME ATA Gabapentin (Gabapentin 100 Mg Capsule) 0 mg PO BEDTIME ATA Hydromorphone HCl (Hydromorphone Hcl 1 Mg/Ml Syringe) 0.5 mg IVPUSH Q3H PRN PRN Reason: Pain, Moderate (Pain Scale 4-6 Dextrose/Lactated Ringer's (D5lr) 1,000 mls @ 125 mls/hr IVCONT .Q8H [facility] Last Infusion: 12/09/21 08:22 Dose: Infused Dextrose/Lactated Ringer's (D5lr) 1,000 mls @ 100 mls/hr IVCONT .Q10H [facility] Ketorolac Tromethamine (Ketorolac Tromethamine 15 Mg/Ml Vial) 15 mg IVPUSH Q6H [facility] Last Admin: 12/09/21 07:08 Dose: 15 mg Non-Formulary Medication (Levalbuterol Tartrate) 2 puff INHALE Q4H [facility] Non-Formulary Medication (Mometasone) 1 puff INHALE BID [facility] Non-Formulary Medication (Norethindrone-E.Estradiol-Iron [Lo Loestrin Fe]) 1 tab PO DAILY [facility] Non-Formulary Medication (Riboflavin (Vitamin B2)) 400 mg PO 0900 [facility] Sodium Chloride (0.9 % Sodium Chloride Flush 3 Ml Syringe) 3 ml IVFLUSH QSHIFT [facility] Last Admin: 12/09/21 07:08 Dose: 3 ml Sodium Chloride (0.9 % Sodium Chloride Flush 3 Ml Syringe) 3 ml IVFLUSH QSHIFT [facility] Tiotropium [place] (Tiotropium [place] 18 Mcg Cap.W.Dev) 1 puff INHALE DAILY [facility] Home Medications Medication Instructions Recorded Confirmed Last Taken Type eletriptan 40 mg tablet 40 mg PO DAILY MRX1 PRN Migraine 03/24/21 12/09/21 Unknown History Headache simvastatin 40 mg tablet 40 mg PO BEDTIME 03/24/21 12/09/21 Unknown History trazodone 50 mg tablet 50 mg PO BEDTIME PRN Sleep 03/24/21 12/09/21 Unknown History cyanocobalamin (vitamin B-12) 1,000 mcg PO DAILY 12/09/21 12/09/21 Unknown History 1,000 mcg tablet gabapentin 100 mg capsule 100 - 300 mg PO BEDTIME 12/09/21 12/09/21 Unknown History levalbuterol tartrate 45 2 puff inhalation Q4-6H PRN 12/09/21 12/09/21 Unknown History mcg/actuation aerosol inhaler Shortness Of Breath mometasone 220 mcg/actuation(60 1 puff inhalation BID 12/09/21 12/09/21 Unknown History doses) breath activated powder inhaler (Asmanex Twisthaler) norethindrone 1 mg-ethinyl 1 tab PO DAILY 12/09/21 12/09/21 Unknown History estradiol 10 mcg (24)-iron 10 mcg(2) tablet (Lo Loestrin Fe) tiotropium bromide 18 mcg capsule 1 cap inhalation DAILY 12/09/21 12/09/21 Unknown History with inhalation device (Spiriva with HandiHaler) Physical Exam Vital Signs: Vital Signs: Last Vital Signs Temp 97.5 F 12/09/21 08:00 Pulse 91 12/09/21 08:00 Resp 18 12/09/21 08:00 BP 136/68 12/09/21 08:00 Pulse Ox 98 12/09/21 08:00 O2 Del Method 12/09/21 08:00 BMI result Body Mass Index 33.2 Const: General: no acute distress Orientation/consciousness: patient oriented x3 HEENT: Head: Yes normal to inspection, Yes normocephalic and Yes atraumatic Eyes: Conjunctivae: conjunctivae normal Neck: Neck: Yes trachea midline Chest: Chest palpation & inspection: normal inspection of the chest Resp: Effort & Inspection: normal respiratory effort Cardio: Rhythm: regular rhythm GI: Palpation (GI): Soft to palpation : General: Yes CVA tenderness Manual OB Exam: Deferred manual OB exam Back/Spine/Pelvis: Other: Right CVAT Back: CVA tenderness Skin: General skin exam: no rashes or lesions noted Neuro: General: patient oriented x3 and moves all extremities Psych: Appearance: grossly normal Results Results Labs: Short CBC 12/08/21 Range/Units 11:06 WBC 9.6 (4.8-10.8) X10*3/uL Hgb 14.1 (12.0-16.0) g/dl Hct 42.2 (37.0-47.0) % Plt Count 316 (160-400) X10*3/uL BMP 12/08/21 11:30 Sodium 136 Potassium 4.0 Chloride 107 Carbon Dioxide 19 L BUN 12 Creatinine 0.72 Calcium 8.9 Liver Function 12/08/21 Range/Units 11:30 Total Bilirubin 0.8 (0.0-1.0) mg/dL Direct Bilirubin 0.3 (0.0-0.5) mg/dL AST 21 (5-31) U/L ALT 16 (0-31) U/L Alkaline Phosphatase 34 L (39-117) U/L Albumin 4.2 (3.5-5.0) g/dL Urine 12/08/21 12/08/21 Range/Units 11:41 11:41 Urine Color Dark Yellow Urine Appearance Cloudy Urine pH 5.5 (5.0-9.0) Ur Specific Butler 1.015 (1.005-1.025) Urine Protein 30 (1+) H (Neg-Trace) mg/dL Urine Glucose (UA) Negative (Negative) mg/dL Urine Test NEGATIVE (NEGATIVE) Abdomen CT scan report/results: report reviewed and image reviewed Additional studies: Date of Service: 12/08/21 Procedure(s): CT abdomen pelvis wo IV con EXAMINATION: CT ABDOMEN AND PELVIS WITHOUT CONTRAST? CLINICAL INFORMATION: Right flank pain. Question stones? COMPARISON: CT abdomen pelvis 10/25/2014? TECHNIQUE: Multidetector volumetric imaging was performed from the superior aspect of the liver through the pubic symphysis. Sagittal and coronal reformatted images were obtained on the technologist's workstation.? This CT examination was performed using dose optimization techniques as appropriate, variously including the following: *Automated exposure control *Adjustment of mA and/or kV according to patient size (this includes techniques or standardized protocols for targeted exams where dose is matched to indication/reason for exam; i.e. extremities or head) *Use of iterative reconstruction technique DLP: 584 mGy-cm FINDINGS: LUNG BASES: The visualized lung bases are unremarkable.? LIVER, GALLBLADDER, AND BILIARY TREE: The liver is normal in size, shape, and attenuation. No focal hepatic lesion or biliary ductal dilatation is present. The gallbladder is unremarkable with no evidence of radiopaque gallstones, gallbladder wall thickening, or obvious pericholecystic inflammatory changes.? PANCREAS: Unremarkable.? SPLEEN: Unremarkable.? ADRENAL GLANDS: Unremarkable.? KIDNEYS AND URETERS: 5 mm right proximal ureteral stone with mild hydronephrosis. 4 mm nonobstructing right midpole renal calculus. No other renal calculi. No renal lesion. No perinephric stranding or collection.? BLADDER: Unremarkable.? GASTROINTESTINAL TRACT: Mild colonic diverticulosis primarily involving the ascending colon. No evidence of acute diverticulitis. No dilated bowel loops. No bowel wall thickening. Normal appendix. No ascites or free air.? ABDOMINAL WALL: No significant hernia is appreciated.? LYMPH NODES: No lymphadenopathy. VASCULAR: Normal caliber abdominal aorta. Minimal vascular calcification. PELVIC VISCERA: Unremarkable.? OSSEOUS STRUCTURES: Unremarkable.? CT/CT abdomen pelvis wo IV con IMPRESSION: ? 1. 5 mm right proximal ureteral stone with mild right hydronephrosis. 2. 4 mm nonobstructing right renal calculus.? ? Assessment and Plan (1) Calculus of kidney: Status: Acute (2) Hydronephrosis, right: Status: Acute (3) Renal colic on right side: Status: Acute Plan I have reviewed CT scan findings with the patient. I have discussed surgical management ureteroscopy stone manipulation and extraction in the ureter. Quality Stroke Does the patient have a stroke diagnosis?: No VTE Prior VTE?: No VTE Risk Level:: Medical - low VTE Device Contraindication: N/A - Device Ordered VTE Drug Contraindication: N/A - Med Ordered Procedures Date of Service Date of Service: 12/09/21
[2021-12-09] MEDS: Acetaminophen 325 MG TABLET 650 MG PO (12:15)
--- NOTE | 2021-12-09 14:30 | MHC.CM.PN ---
CM MET WITH PATIENT. LIVES IN SINGLE FAMILY HOME WITH SPOUSE. NO HCP ON FILE AND DECLINES TO FILL ONE OUT. NO COVID VAX. PCP DR. ARGUELLES AT [facility], CONFIRMED. [facility]SE WILL TRANSPORT HOME ON DC
--- NOTE | 2021-12-09 15:44 | P.CONAN_ITS ---
HPI - Anesthesia Eval Consult details Narrative: Right ureter stone PMFSH Active Problems Active Problems: All Active Problems (Updated 12/09/21 @ 10:28 by Greer Mann MD) Renal colic on right side (Acute) Hydronephrosis, right (Acute) Calculus of kidney (Acute) Insomnia (Acute) Migraines (Acute) Irritable bowel syndrome (Acute) Lumbar spondylosis (Acute) Asthma (Acute) Hyperlipidemia (Acute) Obesity (Acute) Allergic rhinitis (Acute) Bruxism (Acute) Snoring (Acute) Past Medical History Medical History Allergic rhinitis Asthma Hyperlipidemia Insomnia Irritable bowel syndrome Lumbar spondylosis Migraines Obesity Family History Family History Mother Thyroid disease CAD (coronary artery disease) Father Stroke Angina at rest Maternal Grandmother Breast cancer Recurrent strokes Family history of problems with anesthesia: No Surgical History Surgical History H/O wrist surgery History of Problems with Anesthesia: No Social History Social History Household Members: Family Housing: House Do you presently have visiting nurse or other home services: No Alcohol intake: current Alcohol intake frequency: holidays/special occasions only Patient Tobacco Use Status: Never used Tobacco Use of substances other than those prescribed or required for medical reasons: No Have you been hit, kicked, punched, or otherwise hurt by someone within the past year? If so, by whom?: No Are you DNR?: No Advance Directives: No Advance Directives Information Provided: No Do you have thoughts of harming others: None Do you have a plan to hurt others: No Plan Recently lost weight without trying: No Eating poorly because of decreased appetite: No Nutrition Risks: No Nutritional Risk Patient : No : No Poor oral hygiene: No service: No Meds Allergies Allergy/AdvReac Type Severity Reaction Status Date / Time pseudoephedrine Allergy Palpitation Verified 12/08/21 10:59 [From Boris] s SEASONAL ALLERGIES Allergy Mild SNEEZING Uncoded 11/17/21 21:42 RUNNY NOSE Active Medications: Current Medications Acetaminophen (Acetaminophen 325 Mg Tablet) 650 mg PO Q6H PRN PRN Reason: Headache Last Admin: 12/09/21 12:15 Dose: 650 mg Atorvastatin Calcium (Atorvastatin Calcium 20 Mg Tablet) 20 mg PO BEDTIME ATA Gabapentin (Gabapentin 100 Mg Capsule) 100 mg PO BEDTIME [facility] Hydromorphone HCl (Hydromorphone Hcl 1 Mg/Ml Syringe) 0.5 mg IVPUSH Q3H PRN PRN Reason: Pain, Moderate (Pain Scale 4-6 Dextrose/Lactated Ringer's (D5lr) 1,000 mls @ 125 mls/hr IVCONT .Q8H [facility] Last Admin: 12/09/21 12:15 Dose: 125 mls/hr Dextrose/Lactated Ringer's (D5lr) 1,000 mls @ 100 mls/hr IVCONT .Q10H [facility] Last Admin: 12/09/21 12:51 Dose: Not Given Ketorolac Tromethamine (Ketorolac Tromethamine 15 Mg/Ml Vial) 15 mg IVPUSH Q6H [facility] Last Admin: 12/09/21 14:47 Dose: Not Given Non-Formulary Medication (Levalbuterol Tartrate) 2 puff INHALE Q4H [facility] Non-Formulary Medication (Mometasone) 1 puff INHALE BID [facility] Non-Formulary Medication (Norethindrone-E.Estradiol-Iron [Lo Loestrin Fe]) 1 tab PO DAILY [facility] Non-Formulary Medication (Riboflavin (Vitamin B2)) 400 mg PO 0900 [facility] Sodium Chloride (0.9 % Sodium Chloride Flush 3 Ml Syringe) 3 ml IVFLUSH QSHIFT [facility] Last Admin: 12/09/21 07:08 Dose: 3 ml Sodium Chloride (0.9 % Sodium Chloride Flush 3 Ml Syringe) 3 ml IVFLUSH QSHIFT [facility] Tiotropium [place] (Tiotropium [place] 18 Mcg Cap.W.Dev) 1 puff INHALE DAILY [facility] Last Admin: 12/09/21 11:29 Dose: 1 puff Home Medications Medication Instructions Recorded Confirmed Last Taken Type eletriptan 40 mg tablet 40 mg PO DAILY MRX1 PRN Migraine 03/24/21 12/09/21 Unknown History Headache simvastatin 40 mg tablet 40 mg PO BEDTIME 03/24/21 12/09/21 Unknown History trazodone 50 mg tablet 50 mg PO BEDTIME PRN Sleep 03/24/21 12/09/21 Unknown History cyanocobalamin (vitamin B-12) 1,000 mcg PO DAILY 12/09/21 12/09/21 Unknown History 1,000 mcg tablet gabapentin 100 mg capsule 100 - 300 mg PO BEDTIME 12/09/21 12/09/21 Unknown History levalbuterol tartrate 45 2 puff inhalation Q4-6H PRN 12/09/21 12/09/21 Unknown History mcg/actuation aerosol inhaler Shortness Of Breath mometasone 220 mcg/actuation(60 1 puff inhalation BID 12/09/21 12/09/21 Unknown History doses) breath activated powder inhaler (Asmanex Twisthaler) norethindrone 1 mg-ethinyl 1 tab PO DAILY 12/09/21 12/09/21 Unknown History estradiol 10 mcg (24)-iron 10 mcg(2) tablet (Lo Loestrin Fe) tiotropium bromide 18 mcg capsule 1 cap inhalation DAILY 12/09/21 12/09/21 Unknown History with inhalation device (Spiriva with HandiHaler) Exam Exam Date and Time: December 09, 2021 1544 Height,Weight and Vital Signs: Height 5 ft Weight 77.111 kg Last Vital Signs Temp 97.4 F 12/09/21 12:00 Pulse 91 12/09/21 12:00 Resp 18 12/09/21 12:00 BP 137/96 H 12/09/21 12:00 Pulse Ox 98 12/09/21 12:00 O2 Del Method 12/09/21 12:00 Pertinent Lab Results Pertinent Lab Results: Laboratory Tests 12/08/21 12/08/21 12/08/21 11:06 11:30 11:41 WBC 9.6 RBC 4.72 Hgb 14.1 Hct 42.2 MCV 89.4 MCH 29.9 MCHC 33.4 RDW 13.3 Plt Count 316 MPV 8.9 L Immature Gran % (Auto) 0.4 Neut % (Auto) 71.0 Lymph % (Auto) 24.0 [place] % (Auto) 3.9 Eos % (Auto) 0.4 Baso % (Auto) 0.3 Lymph # (Auto) 2.3 [place] # (Auto) 0.4 Eos # (Auto) 0.0 Baso # (Auto) 0.0 Abs Immat Gran (auto) 0.04 H Absolute Neuts (auto) 6.8 Absolute Nucleated RBC 0.000 Nucleated RBC % (auto) 0.0 Sodium 136 Potassium 4.0 Chloride 107 Carbon Dioxide 19 L Anion Gap 14 BUN 12 Creatinine 0.72 Estim Creat Clear Calc 86.7 Estimated GFR > 60 Random Glucose 90 Calcium 8.9 Total Bilirubin 0.8 Direct Bilirubin 0.3 AST 21 ALT 16 Alkaline Phosphatase 34 L Total Protein 7.2 Albumin 4.2 Lipase 16 Urine Color Dark Yellow Urine Appearance Cloudy Urine pH 5.5 Ur Specific [place] 1.015 Urine Protein 30 (1+) H Urine Glucose (UA) Negative Urine Ketones Negative Urine Blood Large (3+) H Urine Nitrite Negative Ur Leukocyte Esterase Trace H Urine RBC >20 H Urine WBC 6-10 H Ur Squamous Epith Cells 11-20 Urine Bacteria 1+ Hyaline Casts 0-2 Urine Test COVID-19 (FERNANDO) COVID-[employer] 12/08/21 12/09/21 11:41 00:38 WBC RBC Hgb Hct MCV MCH MCHC RDW Plt Count MPV Immature Gran % (Auto) Neut % (Auto) Lymph % (Auto) [place] % (Auto) Eos % (Auto) Baso % (Auto) Lymph # (Auto) [place] # (Auto) Eos # (Auto) Baso # (Auto) Abs Immat Gran (auto) Absolute Neuts (auto) Absolute Nucleated RBC Nucleated RBC % (auto) Sodium Potassium Chloride Carbon Dioxide Anion Gap BUN Creatinine Estim Creat Clear Calc Estimated GFR Random Glucose Calcium Total Bilirubin Direct Bilirubin AST ALT Alkaline Phosphatase Total Protein Albumin Lipase Urine Color Urine Appearance Urine pH Ur Specific [place] Urine Protein Urine Glucose (UA) Urine Ketones Urine Blood Urine Nitrite Ur Leukocyte Esterase Urine RBC Urine WBC Ur Squamous Epith Cells Urine Bacteria Hyaline Casts Urine Test NEGATIVE COVID-19 (FERNANDO) Negative COVID-19 [facility] See Note Airway Mallampati Class: II TM Dist: >3cm Neck ROM: Full Heart: RRR Lungs: CTA Assessment and Plan Assessment Anesthesia Assessment: Anesthesia Plan Discussed and Chart Reviewed Final Anesthetic Review Family History of Problems with Anesthesia: No History of Problems with Anesthesia: No NPO: Yes ASA Class: III and Emergency Final Preanesthetic Review: No Changes in Pt Med Stat, Meds/Allgs Chart Reviewed, Consent Obtained/Reviewed and Anes Risks/Benef Reviewed Patient Risk: Intermediate Procedure Risk: Low Anesthetic Plan Anesthetic Plan: GA Disposition: Standard PACU
--- NOTE | 2021-12-09 16:42 | MHC.SHP ---
Pre-Procedural Eval Section A Date of Service: 12/09/21 The patient is an INPATIENT: Yes Changes since office visit: No Cold of Flu in the past 2 weeks, No New Medical Problems, No Changes in Medication and No Patient answered all questions The History & Physical has been completed within 30 days and I have reviewed it.: Yes Section B Chief Complaint: Right Ureteral Stone, Right Hydronephrosis, pain Allergies: Allergies Allergy/AdvReac Type Severity Reaction Status Date / Time pseudoephedrine Allergy Palpitation Verified 12/08/21 10:59 [From Boris] s SEASONAL ALLERGIES Allergy Mild SNEEZING Uncoded 11/17/21 21:42 RUNNY NOSE Plan Diagnosis/Plan: Unchanged (above - retrograde, stent) I have reviewed the history and physical and performed a pertinent physical examination on my patient. No changes have occurred unless specified.
--- NOTE | 2021-12-09 17:10 | P.OP_ITS ---
Operative Note Operative Note Date of Service: 12/09/21 Narrative: PreOperative Diagnosis: Distal right ureteric stone with hydronephrosis Post Operative Diagnosis: Distal right ureteric stone with hydronephrosis Procedure: Cystoscopy, right retrograde right stent placement Surgeon: Dr Chavez Corral Anesthesia: Sedation Indications for procedure: Proximal right ureteric stone with hydronephrosis and pain with associated nausea. Failed Conservative therapy. Height 5 ft Procedure: After informed consent was verified the patient was brought to the operating room and placed in a supine position. Anesthesia was administered per protocol. The patient was placed in modified dorsal lithotomy position and prepped and draped in a sterile fashion. A safety pause time-out was performed. Laterality of procedure and antibiotics were confirmed, appropriate imaging was available A 22 Macedonian cystoscope was introduced per urethra. No abnormality was noted of urethra or bladder. Both ureteric orifices were seen in a normal position. The right ureter was cannulated with an open ended catheter and a retrograde examination was performed. Filling defects seen in proximal portion right ureter with hydronephrosis . A Sensor guidewire was placed under fluoroscopy and a good coil was seen within the renal pelvis. A 6 Macedonian by 22 cm double J stent was advanced over the wire and up to the level of the renal pelvis under fluoroscopic and direct visualization. The stent was seen with appropriate coil within the renal pelvis and in the bladder after deployment. The patient tolerated the procedure well and was transferred in a stable condition to the recovery area. Pathology: None Drains: As above
--- NOTE | 2021-12-09 17:20 | P.DS_ITS ---
DS: Providers Provider Date of Service: 12/09/21 Date of admission: 12/09/21 00:35 Primary care physician: Annette Lara MD DS: Diagnosis Discharge Diagnosis (1) Calculus of kidney: Status: Acute (2) Hydronephrosis, right: Status: Acute (3) Renal colic on right side: Status: Acute DS: Summary Hospital Course Hospital Course: Cystoscopy with right stent placement Time spent discussing smoking cessation with patient: 3 to 10 minutes Status at Discharge Functional status at discharge: independent ambulation Overall status at discharge: patient is back to baseline Time Spent with Patient Time attestation: Total time spent providing and/or coordinating discharge services: Discharge coordination time: Less than 30 minutes Quality: Safe Use of Opioids Does Pt have an Active Cancer Diagnosis on the Problem List?: No Quality: Stroke Does the patient have a stroke diagnosis?: No Physical Exam Vital Signs: Vital Signs: Last Vital Signs Temp 97.3 F 12/09/21 15:46 Pulse 89 12/09/21 15:46 Resp 18 12/09/21 15:46 BP 125/93 H 12/09/21 15:46 Pulse Ox 97 12/09/21 15:46 O2 Del Method 12/09/21 15:46 BMI result Body Mass Index 33.2 Const: General: cooperative, healthy appearing, comfortable and no acute distress Orientation/consciousness: patient oriented x3 HEENT: Face and sinus: Yes normal facial exam Mouth: moist mucous membranes Neck: Neck: Yes normal visual inspection, Yes full ROM and Yes trachea midline Chest: Chest palpation & inspection: normal inspection of the chest Resp: Effort & Inspection: normal respiratory effort, able to speak in complete sentences and no respiratory distress GI: Inspection: Yes normal to inspection Back/Spine/Pelvis: Cervical Spine: normal cervical lordosis Thoracic/Lumbar Spine: thoracic and lumbar spine normal to inspection Skin: General skin exam: no rashes or lesions noted Neuro: General: patient oriented x3, tone normal and moves all extremities Extrem: General: Yes normal to inspection and Yes capillary refill normal DS: Data Data Completed and Pending Labs on day of discharge: Laboratory Results - last 24 hr 12/08/21 12/09/21 11:41 00:38 Urine Color Dark Yellow Urine Appearance Cloudy Urine pH 5.5 Ur Specific [place] 1.015 Urine Protein 30 (1+) H Urine Glucose (UA) Negative Urine Ketones Negative Urine Blood Large (3+) H Urine Nitrite Negative Ur Leukocyte Esterase Trace H Urine RBC >20 H Urine WBC 6-10 H Ur Squamous Epith Cells 11-20 Urine Bacteria 1+ Hyaline Casts 0-2 COVID-19 (FERNANDO) Negative COVID-19 Clin Com See Note Preliminary micro results at discharge 12/08/21 00:00 Urine Culture - Preliminary Urine clean catch - Urine price top Culture too young to evaluate. Discharge Plan Discharge Anticipated Discharge Date/Time: 12/09/21 17:12 Patient Disposition: Home, Self-Care Discharge Diagnosis: Right proximal ureteric stone Referrals: Annette Lara MD [Primary Care Provider] - None Discharge Medications: New tramadol 50 mg tablet 50 mg PO Q6H PRN (Reason: pain (scale score 1-3)) Qty: 8 0RF tamsulosin 0.4 mg capsule 0.4 mg PO BEDTIME 14 Days Qty: 14 0RF phenazopyridine [Pyridium] 100 mg tablet 100 mg PO TID PRN (Reason: Spasm) 4 Days Qty: 12 0RF Continued Spiriva with HandiHaler 18 mcg capsule, w/inhalation device 1 cap inhalation DAILY levalbuterol tartrate 45 mcg/actuation HFA aerosol inhaler 2 puff inhalation Q4-6H PRN (Reason: Shortness Of Breath) Lo Loestrin Fe 1 mg-10 mcg (24)/10 mcg (2) tablet 1 tab PO DAILY cyanocobalamin (vitamin B-12) 1,000 mcg Tablet 1,000 mcg PO DAILY gabapentin 100 mg Capsule 100 - 300 mg PO BEDTIME Asmanex Twisthaler 220 mcg/ actuation (60) aerosol powdr breath activated 1 puff inhalation BID simvastatin 40 mg tablet 40 mg PO BEDTIME trazodone 50 mg tablet 50 mg PO BEDTIME PRN (Reason: Sleep) eletriptan 40 mg tablet 40 mg PO DAILY MRX1 PRN (Reason: Migraine Headache) Rx Instructions: do not exceed 2 doses per 24 hrs riboflavin (vitamin B2) 400 mg tablet 400 mg PO QAM Qty: 30 6RF Discharge Orders: Discharge Order (Routine); Ordered 12/09/21 Ordered By: Chavez Corral Diet: Advance to usual diet Activity on Discharge: As tolerated Stand Alone Forms: Patient Portal Discharge page Care Plan Goals: Kidney stone Health Concerns: Kidney stone Plan of Treatment: Kidney stone Assessment: Kidney stone Patient Instructions: Ureteral Stent Placement (DC)
[2021-12-09] MEDS: Atorvastatin Calcium 20 MG TABLET PO (19:15)
[2021-12-09] MEDS: Gabapentin 100 MG CAPSULE PO (19:16)
[2021-12-09] MEDS: traMADoL HCL 50 MG TABLET PO (19:16)
[2021-12-09] MEDS: HYDROmorphone HCl 1 MG/ML SYRINGE 0.5 MG IVPUSH (19:28)
--- NOTE | 2021-12-09 19:51 | PC.NURSE ---
Pt was suppose to discharged. Patient was complaining of ab and back pain. Pain meds was given. MD was notified. Md allowed patient to stay overnight.
[2021-12-09] MEDS: Tamsulosin HCL 0.4 MG CAPSULE PO (21:08)
[2021-12-09] MEDS: Phenazopyridine HCL 100 MG TABLET PO (21:08)
[2021-12-09] MEDS: Dextrose 5 % and Lactated Ring 1,000 ML 100 ML IVCONT (21:17)
[2021-12-10] MEDS: Morphine Sulfate 2 MG/ML CARTRIDGE IVPUSH (00:19)
--- NOTE | 2021-12-10 02:05 | PC.NURSE ---
At 1900 patient was suppose to be discharge, but patient was complaining of pain. Nurse gave patient PRN tramadol and scheduled toradol for relief. Md was contacted and patient was allowed to stay overnight. at 1930 patient was still complaining of pain. Patient was given prn Dilaudid. at 2100 pat was still complaining of pain. MD was contacted. MD ordered Tamsulosin and Oxybuytinin. Md also advised to not give dilaudid for pain. at 2330 patient complained of pain. MD contacted. MD ordered Morphine 2mg q4. Patient was able to sleep after dose.
[2021-12-10 03:21] VITALS: BP 134/80; PULSE 79; RESP 16; TEMP 36.3; O2SAT 95
[2021-12-10 06:00] VITALS: RESP 16
[2021-12-10] MEDS: Ketorolac Tromethamine 15 MG/ML VIAL IVPUSH (07:02)
[2021-12-10] MEDS: Dextrose 5 % and Lactated Ring 1,000 ML 100 ML IVCONT (07:05)
[2021-12-10] MEDS: 0.9 % Sodium Chloride Flush 3 ML SYRINGE IVFLUSH (07:05)
[2021-12-10 07:48] VITALS: BP 126/82; PULSE 85; RESP 16; TEMP 36.7; O2SAT 95
[2021-12-10 07:56] VITALS: PULSE 72; RESP 20; O2SAT 98
[2021-12-10] MEDS: traMADoL HCL 50 MG TABLET PO (08:13)
--- NOTE | 2021-12-10 09:03 | MHC.CM.PN ---
Patient is discharged home self care. Family will provide transportation.
--- NOTE | 2021-12-10 14:38 | HO.POSTANES ---
Post Anesthesia Evaluation Post Anesthesia Evaluation Vital Signs: Vital Signs Temp Pulse Resp BP Pulse Ox O2 Del Method 12/10/21 07:56 72 20 12/10/21 07:48 98.0 F 85 16 126/82 95 Room Air 12/10/21 06:00 16 12/10/21 03:21 97.4 F 79 16 134/80 95 Room Air Anesthesia: Monitored Mental Status: Awake Pain Control: Satisfactory Nausea/Vomiting: None Hydration: Adequate Anesthesia-Related Issues: No Anes. Related Issues
== END 2021-12-10 09:05 | disposition home or self-care (01) | DRG 661 ==
LOC: HO.ED 12-09 00:30 → HO.EDOVER 12-09 00:48 → HO.S3 12-09 07:06
PROVIDERS: Admitting Provider Urology; Emergency Provider Internal Medicine; PCP Family Medicine; Visit Provider Urology
PROC: 0T768DZ Dilation of Right Ureter with Intraluminal Device, Via Natural or Artificial Opening Endoscopic (ICD-10-PCS; CPT 52332; principal; 2021-12-09 16:30)
DX: N13.2 Hydronephrosis with renal and ureteral calculous obstruction (principal); E78.5 Hyperlipidemia, unspecified; E66.9 Obesity, unspecified; Z68.33 Body mass index [BMI] 33.0-33.9, adult; Z20.822 Contact with and (suspected) exposure to COVID-19; Z88.8 Allergy status to other drugs, medicaments and biological substances; Z79.899 Other long term (current) drug therapy
CPT/HCPCS: 52332; 36415; 74176; 80048; 80076; 81001; 81003; 81025; 83690; 85025; 87086; 87635; 94640; 96361; 96374; 96375; 96376; 99285; C1758; C1769; C2617; J1170; J1885; J1956; J2250; J2270; J2405; J3010; Q9965

== ENCOUNTER 2021-12-13 16:51 | Outpatient (REF) | payer OTHER, SELFPAY ==
--- NOTE | ~2021-12-13 | XR_ITS ---
EXAMINATION: XR ABDOMEN KUB CLINICAL INDICATION: Calculus of kidney. COMPARISON: CT abdomen 12/08/2021 TECHNIQUE: AP view of the abdomen. FINDINGS: There is moderate scattered stool seen throughout the colon without any significant distention. No radiopaque renal calculi or hydronephrosis seen. There is a double ureteral stent in right kidney in the pelvis. No gross bony abnormality seen. XR/XR KUB IMPRESSION: Moderate constipation. There is a double right ureteral stent in place.
== END 2021-12-13 16:52 | disposition home or self-care (01) ==
LOC: HO.XRAY 16:51
PROVIDERS: Visit Provider Urology
DX: N20.0 Calculus of kidney (principal)
CPT/HCPCS: 74018

== ENCOUNTER 2021-12-15 11:00 | Outpatient (REF) | payer OTHER, SELFPAY ==
[2021-12-15 11:15] LABS: MANUAL DIFF FLAG NO
[2021-12-15 12:06] LABS: Basophils Absolute Auto 0.1 X10*3/uL (0.0-0.2); Basophils Percent Auto 0.7 % (0-2); Eosinophils Absolute Auto 0.3 X10*3/uL (0.0-0.4); Eosinophils Percent Auto 3.4 % (0-4); Hematocrit 38.6 % (37.0-47.0); Hemoglobin 12.8 g/dl (12.0-16.0); Imm Gran Abs Auto 0.02 X10*3/uL (0.00-0.03); Imm Gran Pct Auto 0.2 % (0.0-0.4); Lymphocytes Absolute Auto 2.9 X10*3/uL (1.2-4.9); Lymphocytes Percent Auto 32.4 % (20-40); Mean Corpuscular HGB Conc 33.2 g/dl (31.0-35.0); Mean Corpuscular Hemoglobin 30.2 pg (27.0-33.0); Mean Platelet Volume 9.4 fL (9.4-12.3); Monocytes Absolute Auto 0.4 X10*3/uL (0.1-1.2); Monocytes Percent Auto 4.7 % (2-11); Neutrophils Absolute Auto 5.3 x10*3/uL (2.0-8.3); Neutrophils Percent Auto 58.6 % (45-73); Platelet Count 339 X10*3/uL (160-400); Red Blood Count 4.24 X10*6/uL (4.20-5.50)
== END 2021-12-15 11:01 | disposition home or self-care (01) ==
LOC: HO.LAB 11:00
PROVIDERS: PCP Family Medicine; Visit Provider Internal Medicine Pulmonary Disease
DX: N23 Unspecified renal colic (principal); N13.30 Unspecified hydronephrosis; N13.2 Hydronephrosis with renal and ureteral calculous obstruction; R39.9 Unspecified symptoms and signs involving the genitourinary system; R39.14 Feeling of incomplete bladder emptying; J45.909 Unspecified asthma, uncomplicated; U09.9 Post COVID-19 condition, unspecified; Z96.0 Presence of urogenital implants
CPT/HCPCS: 36415; 51798; 82785; 85025; 86003; 87086

== ENCOUNTER 2021-12-20 07:41 | Day surgery (SDC) | payer OTHER, SELFPAY ==
[2021-12-20] VITALS (9 sets, daily range): BP systolic 109–145; BP diastolic 64–99; PULSE 92–113; RESP 16–18; TEMP 36.3–37.4; O2SAT 94–96; BMI 32.3
--- NOTE | ~2021-12-20 | FL_ITS ---
EXAMINATION: XR FLUOROSCOPY WITH IMAGES CLINICAL INFORMATION: Cystoscopy. Right flank pain. Urinary tract calculi. COMPARISON: CT abdomen and pelvis 12/08/2021. TECHNIQUE: Fluoroscopy performed by Dr. Mann. Fluoroscopy time: 31 seconds. Cumulative Dose: 8.90 mGy. Images: 6. FINDINGS: There is a punctate calcified phlebolith versus ureteral calculus adjacent to distal right ureter. A ureteral stent is in position. FL/FL guidance in OR IMPRESSION: Fluoroscopy for urologic procedure.
[2021-12-20 08:19] LABS: UPreg QC Valid YES; Urine Pregnancy NEGATIVE (NEGATIVE)
[2021-12-20] MEDS: Lactated Ringers 1,000 ML 100 ML IVCONT (08:20)
--- NOTE | 2021-12-20 09:43 | HO.ANESPROP2 ---
FORM[facility]LY [facility] Active Problems Active Problems: All Active Problems (Updated 12/18/21 @ 00:04 by Bridgett Tse) Ureteral stone with hydronephrosis (Acute) Hydronephrosis (Acute) Post covid-19 condition, unspecified (Acute) Environmental allergies (Acute) Calculus of kidney (Acute) Insomnia (Acute) Migraines (Acute) Irritable bowel syndrome (Acute) Lumbar spondylosis (Acute) Asthma (Acute) Hyperlipidemia (Acute) Obesity (Acute) Allergic rhinitis (Acute) Bruxism (Acute) Snoring (Acute) Past Medical History Medical History Allergic rhinitis Asthma Hyperlipidemia Insomnia Irritable bowel syndrome Lumbar spondylosis Migraines Obesity Functional capacity: independent ambulation Patient : No Family History Family History Mother Thyroid disease CAD (coronary artery disease) Father Stroke Angina at rest Maternal Grandmother Breast cancer Recurrent strokes Family history of problems with anesthesia: No Surgical History Surgical History H/O wrist surgery History of Problems with Anesthesia: No Social History Social History Household Members: Family Housing: House Do you presently have visiting nurse or other home services: No Alcohol intake: current Alcohol intake frequency: holidays/special occasions only Patient Tobacco Use Status: Never used Tobacco Second Hand Smoke Exposure: No Use of substances other than those prescribed or required for medical reasons: No Are you DNR?: No Advance Directives: No Advance Directives Information Provided: Yes Advance Directives on File: No Patient : No service: No Meds Allergies Allergy/AdvReac Type Severity Reaction Status Date / Time pseudoephedrine Allergy Palpitation Verified 12/15/21 10:33 [From Boris] s SEASONAL ALLERGIES Allergy Mild SNEEZING Uncoded 11/17/21 21:42 RUNNY NOSE Active Medications: Current Medications Lactated Ringer's (Lr) 1,000 mls @ 100 mls/hr IVCONT .Q10H [facility] Last Admin: 12/20/21 08:20 Dose: 100 mls/hr Home Medications Medication Instructions Recorded Confirmed Last Taken Type eletriptan 40 mg tablet 40 mg PO DAILY MRX1 PRN Migraine 03/24/21 12/15/21 Unknown History Headache simvastatin 40 mg tablet 40 mg PO BEDTIME 03/24/21 12/15/21 Unknown History cyanocobalamin (vitamin B-12) 1,000 mcg PO DAILY 12/09/21 12/15/21 Unknown History 1,000 mcg tablet gabapentin 100 mg capsule 100 - 300 mg PO BEDTIME 12/09/21 12/15/21 Unknown History levalbuterol tartrate 45 2 puff inhalation Q4-6H PRN 12/09/21 12/15/21 Unknown History mcg/actuation aerosol inhaler Shortness Of Breath norethindrone 1 mg-ethinyl 1 tab PO DAILY 12/09/21 12/15/21 Unknown History estradiol 10 mcg (24)-iron 10 mcg(2) tablet (Lo Loestrin Fe) Exam Exam Date and Time: December 20, 2021 0943 Height,Weight and Vital Signs: Height 5 ft 0.75 in Weight 77.111 kg Last Vital Signs Temp 97.6 F 12/20/21 08:03 Pulse 113 H 12/20/21 08:03 Resp 16 12/20/21 08:03 BP 128/81 12/20/21 08:03 Pulse Ox 95 12/20/21 08:03 O2 Del Method 12/20/21 08:03 Pertinent Lab Results Pertinent Lab Results: Laboratory Tests 12/20/21 08:00 Urine Test NEGATIVE Airway Mallampati Class: III TM Dist: >3cm Neck ROM: Full Heart: RRR Lungs: CTa Assessment and Plan Final Anesthetic Review Family History of Problems with Anesthesia: No History of Problems with Anesthesia: No NPO: Yes ASA Class: II and Emergency Final Preanesthetic Review: No Changes in Pt Med Stat, Meds/Allgs Chart Reviewed, Consent Obtained/Reviewed and Anes Risks/Benef Reviewed Patient Risk: Intermediate Procedure Risk: Low Anesthetic Plan Anesthetic Plan: GA Disposition: Standard PACU
--- NOTE | 2021-12-20 11:46 | MHC.SHP ---
Pre-Procedural Eval Section A Date of Service: 12/20/21 The patient is an INPATIENT: No Section B Chief Complaint: Calculus of kidney Allergies: Allergies Allergy/AdvReac Type Severity Reaction Status Date / Time pseudoephedrine Allergy Palpitation Verified 12/15/21 10:33 [From Boris] s SEASONAL ALLERGIES Allergy Mild SNEEZING Uncoded 11/17/21 21:42 RUNNY NOSE Plan I have reviewed the history and physical and performed a pertinent physical examination on my patient. No changes have occurred unless specified. 51 year old female recent hospital admission for right renal colic. CT abdomen pelvis pertinent findings:? 5 mm proximal right ureteral stone with hydronephrosis.? Of a nonobstructing mm right stone The patient with right ureteral stent on 12/09/2021.? Plan for Right ureteroscopy, ureteral stent exchange. Risks discussed included but not limited to, blood in the urine, possible need to repeat procedure if stone is not completely fragmented, Irritative voiding symptoms, bladder spasms, urgency.
[2021-12-20] MEDS: Scopolamine 1.5 MG PATCH.TD.3 EAR-BEHIND (11:48)
--- NOTE | 2021-12-20 13:48 | W.PM.OPN ---
Operative Note Operative Note Date of Service: 12/20/21 Narrative: PreOperative Diagnosis:?? Right ureteral stone s/p right ureteral stent Post Operative Diagnosis:?? Right ureteral stone s/p right ureteral stent Procedure: - cystoscopy, right ureteroscopy laser lithotripsy stent exchange, Surgeon:?Dr Greer Mann Anesthesia:? General Indications for procedure: 51 year old female s/p right ureteral stent on 12/09/21 for right obstructing ureteral stone. Procedure: After informed consent was verified the patient was brought to the operating placed on the OR table in supine position.? General Anesthesia was administered per protocol.? The patient was placed in lithotomy position, prepped and draped in the usual sterile fashion.? Safety pause time-out and side of surgery confirmed.? Antibiotics confirmed. A 22 Azeri cystoscope was inserted transurethrally, The bladder was visualized.? Both ureteric orifices were in normal position. The right ureteral stent was curled in the bladder. The? right distal end of the ureteral stent was grasped with the flexible grasping forceps. The stent was pulled retrograde to the urethra. A guidewire was passed through the stent. A 2nd guidewire was then passed up into the kidney. The cystoscope was removed, leaving both guidewires in place. One guidewire was used as the safety and was attached to the draping. The semi rigid ureteroscope was passed over the second guidewires to the level of the stone in the proximal ureter. One guidewire was then removed. Laser lithotripsy of the stone was done using the 365 fiber with settings 0.8 joules by 5 hertz There was good fragmentation of the stone. The 0 degree basket was used to remove a stone fragment sent for analysis. The ureteroscope was removed. The cystoscope was passed over the safety guidewire. A? 6 Azeri by 22 cm stent was placed into the ureter and renal pelvis under a combination of fluoroscopy and direct visualization. The bladder was emptied.? The rigid cystoscope was removed. ? The patient tolerated the procedure well and was brought to the recovery room in stable condition. Complications: None Drains: Ureteral stent as dictated above
[2021-12-20] MEDS: fentaNYL citrate/PF 100 MCG/2 ML VIAL 25 MCG IVPUSH (13:59)
[2021-12-20] MEDS: oxyCODONE HCl Immed Release 5 MG TABLET PO (14:00)
[2021-12-20] MEDS: Phenazopyridine HCL 100 MG TABLET 200 MG PO (14:26)
[2021-12-23 19:36] LABS: Stone Source URETERAL STONE
== END 2021-12-20 15:05 | disposition home or self-care (01) ==
PROVIDERS: Nurse Practitioner; PCP Family Medicine; Visit Provider Urology
PROC: (CPT 52356; principal; 2021-12-20 09:50)
DX: N13.2 Hydronephrosis with renal and ureteral calculous obstruction (principal); Z96.0 Presence of urogenital implants; J45.909 Unspecified asthma, uncomplicated; E78.5 Hyperlipidemia, unspecified; K58.9 Irritable bowel syndrome, unspecified; G43.909 Migraine, unspecified, not intractable, without status migrainosus; Z79.51 Long term (current) use of inhaled steroids; Z79.899 Other long term (current) drug therapy; Z88.8 Allergy status to other drugs, medicaments and biological substances
CPT/HCPCS: 52356; 81025; 82365; 88300; C1769; C2617; J0131; J0690; J1100; J2250; J2405; J3010; Q9966

== ENCOUNTER 2022-01-02 10:15 | Outpatient (REF) | payer OTHER, SELFPAY ==
--- NOTE | ~2022-01-02 | CT_ITS ---
EXAMINATION: CT CHEST WITHOUT CONTRAST CLINICAL INFORMATION: Post Covid 19. COMPARISON: Chest x-ray of 01/17/2022. TECHNIQUE: Multidetector volumetric CT imaging of the chest was done. Axial MIP volume rendering provided. Sagittal and coronal reformatted images were obtained. This CT examination was performed using dose optimization techniques as appropriate, variously including the following: *Automated exposure control *Adjustment of mA and/or kV according to patient size (this includes techniques or standardized protocols for targeted exams where dose is matched to indication/reason for exam; i.e. extremities or head) *Use of iterative reconstruction technique DLP: 147 mGy-cm FINDINGS: LUNGS: Central airways are patent. No significant changes of emphysema appreciated. No bronchial wall thickening is seen. No bronchiectasis is noted. No confluent parenchymal disease. No significant air trapping is identified on expiratory imaging. There is a 4 mm noncalcified nodule seen within the lingula on image [address] series #10. MEDIASTINUM: Visualized thyroid gland appears unremarkable. Heart is normal size. No pericardial effusion. No thoracic aortic aneurysm. No mediastinal or hilar lymphadenopathy. CORONARY ARTERY CALCIFICATION: None visualized on this study. PLEURA: There is no pleural effusion. No pleural mass or thickening. AXILLA: No lymphadenopathy. UPPER ABDOMEN: Unremarkable. OSSEOUS STRUCTURES: Unremarkable. CT/CT chest wo IV con IMPRESSION: No significant changes of emphysema, interstitial lung disease, or air-trapping. 4 mm lingular nodule. According to the UPDATED 2017 Fleischner Society recommendations, the advised follow up imaging for solid nodules < 6 mm is: LOW RISK PATIENT: No routine follow up. HIGH RISK PATIENT: Optional CT at 12 months.
== END 2022-01-02 10:16 | disposition home or self-care (01) ==
LOC: HO.CT 10:15
PROVIDERS: PCP Family Medicine; Visit Provider Internal Medicine Pulmonary Disease
DX: U09.9 Post COVID-19 condition, unspecified (principal)
CPT/HCPCS: 71250

== ENCOUNTER 2022-01-18 06:05 | Day surgery (SDC) | payer OTHER, SELFPAY ==
--- NOTE | 2022-01-17 12:31 | HO.ANESPROP2 ---
Documented by User: Zulay Rhodes NP 01/17/22 12:32 HPI - Anesthesia Eval Consult details Narrative: 51yo F for Right ESWL s/p cysto, etc 12/2021 with GA-LMA 3 PMFSH Active Problems Active Problems: All Active Problems (Updated 12/18/21 @ 00:04 by Background Daemon) Snoring (Acute) Bruxism (Acute) Calculus of kidney (Acute) Environmental allergies (Acute) Post covid-19 condition, unspecified (Acute) Hydronephrosis (Acute) Ureteral stone with hydronephrosis (Acute) Insomnia (Acute) Migraines (Acute) Irritable bowel syndrome (Acute) Lumbar spondylosis (Acute) Asthma (Acute) Hyperlipidemia (Acute) Obesity (Acute) Allergic rhinitis (Acute) Past Medical History Medical History Allergic rhinitis Asthma Hyperlipidemia Insomnia Irritable bowel syndrome Lumbar spondylosis Migraines Obesity Family History Family History Mother Thyroid disease CAD (coronary artery disease) Father Stroke Angina at rest Maternal Grandmother Breast cancer Recurrent strokes Family history of problems with anesthesia: No Surgical History Surgical History H/O dilation and curettage H/O wrist surgery Hx of cystoscopy History of Problems with Anesthesia: No Social History Social History Household Members: Family Housing: House Do you presently have visiting nurse or other home services: No Alcohol intake: current Alcohol intake frequency: a few times a month Patient Tobacco Use Status: Never used Tobacco Second Hand Smoke Exposure: No Use of substances other than those prescribed or required for medical reasons: No Are you DNR?: No Advance Directives: No Advance Directives Information Provided: Yes service: No Meds Allergies Allergy/AdvReac Type Severity Reaction Status Date / Time pseudoephedrine Allergy Palpitation Verified 01/18/22 06:37 [From Sudafed] s SEASONAL ALLERGIES Allergy Mild SNEEZING Uncoded 01/18/22 06:37 RUNNY NOSE Home Medications Medication Instructions Recorded Confirmed Last Taken Type eletriptan 40 mg tablet 40 mg PO DAILY MRX1 PRN Migraine 03/24/21 01/11/22 Unknown History Headache simvastatin 40 mg tablet 40 mg PO BEDTIME 03/24/21 01/11/22 Unknown History cyanocobalamin (vitamin B-12) 1,000 mcg PO DAILY 12/09/21 01/11/22 Unknown History 1,000 mcg tablet gabapentin 100 mg capsule 100 - 300 mg PO BEDTIME 12/09/21 01/11/22 Unknown History levalbuterol tartrate 45 2 puff inhalation Q4-6H PRN 12/09/21 01/11/22 Unknown History mcg/actuation aerosol inhaler Shortness Of Breath norethindrone 1 mg-ethinyl 1 tab PO DAILY 12/09/21 01/11/22 Unknown History estradiol 10 mcg (24)-iron 10 mcg(2) tablet (Lo Loestrin Fe) oxybutynin chloride 10 mg 10 mg PO DAILY 12/22/21 01/11/22 Unknown History tablet,extended release 24 hr metformin 500 mg tablet 1 tab PO DAILY 01/11/22 01/11/22 Unknown History Exam Exam Date and Time: January 17, 2022 1231 Pertinent Lab Results Pertinent Lab Results: Laboratory Tests 12/08/21 12/15/21 11:30 11:15 WBC 9.0 Hgb 12.8 Hct 38.6 Plt Count 339 Sodium 136 Potassium 4.0 Chloride 107 Carbon Dioxide 19 L BUN 12 Creatinine 0.72 Assessment and Plan Assessment Anesthesia Assessment: Chart Reviewed Final Anesthetic Review Family History of Problems with Anesthesia: No History of Problems with Anesthesia: No Documented by User: Miguel Peters MD 01/18/22 07:42 [facility] Past Medical History Medical History Allergic rhinitis Asthma Hyperlipidemia Insomnia Irritable bowel syndrome Lumbar spondylosis Migraines Obesity Family History Family History Mother Thyroid disease CAD (coronary artery disease) Father Stroke Angina at rest Maternal Grandmother Breast cancer Recurrent strokes Surgical History Surgical History H/O dilation and curettage H/O wrist surgery Hx of cystoscopy Social History Social History Household Members: Family Housing: House Do you presently have visiting nurse or other home services: No Alcohol intake: current Alcohol intake frequency: a few times a month Patient Tobacco Use Status: Never used Tobacco Second Hand Smoke Exposure: No Use of substances other than those prescribed or required for medical reasons: No Are you DNR?: No Advance Directives: No Advance Directives Information Provided: Yes service: No Meds Allergies Allergy/AdvReac Type Severity Reaction Status Date / Time pseudoephedrine Allergy Palpitation Verified 01/18/22 06:37 [From Uliafetone] s SEASONAL ALLERGIES Allergy Mild SNEEZING Uncoded 01/18/22 06:37 RUNNY NOSE Home Medications Medication Instructions Recorded Confirmed Last Taken Type eletriptan 40 mg tablet 40 mg PO DAILY MRX1 PRN Migraine 03/24/21 01/11/22 Unknown History Headache simvastatin 40 mg tablet 40 mg PO BEDTIME 03/24/21 01/11/22 Unknown History cyanocobalamin (vitamin B-12) 1,000 mcg PO DAILY 12/09/21 01/11/22 Unknown History 1,000 mcg tablet gabapentin 100 mg capsule 100 - 300 mg PO BEDTIME 12/09/21 01/11/22 Unknown History levalbuterol tartrate 45 2 puff inhalation Q4-6H PRN 12/09/21 01/11/22 Unknown History mcg/actuation aerosol inhaler Shortness Of Breath norethindrone 1 mg-ethinyl 1 tab PO DAILY 12/09/21 01/11/22 Unknown History estradiol 10 mcg (24)-iron 10 mcg(2) tablet (Lo Loestrin Fe) oxybutynin chloride 10 mg 10 mg PO DAILY 12/22/21 01/11/22 Unknown History tablet,extended release 24 hr metformin 500 mg tablet 1 tab PO DAILY 01/11/22 01/11/22 Unknown History Exam Airway Mallampati Class: II TM Dist: >3cm Neck ROM: Full Loose/Missing/Broken Teeth: No Heart: [id number] Lungs: cta b/l Assessment and Plan Assessment Anesthesia Assessment: Anesthesia Plan Discussed Final Anesthetic Review NPO: Yes ASA Class: II Final Preanesthetic Review: No Changes in Pt Med Stat, Meds/Allgs Chart Reviewed, Consent Obtained/Reviewed and Anes Risks/Benef Reviewed Patient Risk: Intermediate Procedure Risk: Intermediate Assessment/Block/Sedation in SS: Assess/Block/Sedation-SS Anesthetic Plan Anesthetic Plan: MAC: and Agree w/ Assess. and Plan Disposition: Standard PACU
--- NOTE | ~2022-01-18 | XR_ITS ---
EXAMINATION: XR ABDOMEN KUB CLINICAL INDICATION: Pre-ESWL. COMPARISON: Renal ultrasound dated 01/19/2022; KUB dated 12/16/2021; CT abdomen and pelvis dated 12/08/2021. TECHNIQUE: 2 AP views of the abdomen and pelvis are submitted. FINDINGS: The bowel gas pattern is normal, with no evidence of ileus or obstruction. The patient's right ureteric stent has been removed in the interim. A 4 mm mid right ureteric calculus is redemonstrated. No further urinary calculus is presently appreciated. There are stable pelvic phleboliths. The bones are unremarkable. XR/XR KUB IMPRESSION: There has been interim removal of the patient's right ureteric stent. A 4 mm mid right ureteric calculus is redemonstrated.
[2022-01-18 06:38] VITALS: BMI 29.7
[2022-01-18 06:49] VITALS: BP 147/99; PULSE 94; RESP 16; TEMP 36.4; O2SAT 96
[2022-01-18 06:52] LABS: UPreg QC Valid YES; Urine Pregnancy NEGATIVE (NEGATIVE)
[2022-01-18] MEDS: Lactated Ringers 1,000 ML 100 ML IVCONT (07:05)
--- NOTE | 2022-01-18 07:22 | P.HPSUR_ITS ---
Pre-Procedural Eval Section A Date of Service: 01/18/22 The patient is an INPATIENT: No Section B Chief Complaint: Calculus of kidney Allergies: Allergies Allergy/AdvReac Type Severity Reaction Status Date / Time pseudoephedrine Allergy Palpitation Verified 01/18/22 06:37 [From Boris] s SEASONAL ALLERGIES Allergy Mild SNEEZING Uncoded 01/18/22 06:37 RUNNY NOSE Plan I have reviewed the history and physical and performed a pertinent physical examination on my patient. No changes have occurred unless specified. Right ESWL. Discussed risks to include but not limited to, blood in the urine, bruising to the skin, kidney hematoma, possible need for another procedure if a stone fragment obstructs the ureter while passing, possible need to repeat proce dure if stone is not completely fragmented.
[2022-01-18 08:10] VITALS: BP 111/74; PULSE 91; RESP 16; TEMP 36.4; O2SAT 97
[2022-01-18 08:15] VITALS: BP 117/72; PULSE 82; RESP 16; O2SAT 99
--- NOTE | 2022-01-18 08:18 | W.PM.OPN ---
Operative Note Operative Note Date of Service: 01/18/22 Narrative: PreOperative Diagnosis:? ? Right Renal stone Post Operative Diagnosis:?Right? Renal stone Procedure:?Right? ESWL Surgeon:?Dr Greer Mann Anesthesia:? MAC Indications for procedure: Carmen is a 51 year old with a 4-5 mm right mid pole stone. The patient understands ESWL may be a staged procedure and subsequent intervention may be required based on imaging after ESWL.? They also understand? there is a risk of bleeding to the kidney, infection, damage to adjacent organs, and stone migration following the procedure. Procedure: After informed consent was verified the patient was brought to the operating room and placed in a supine position.? Anesthesia was performed per protocol. Safety pause time-out was performed. Imaging was displayed in the room and laterality confirmed. ESWL was performed.?The stone was visualized on both fluoroscopy and ultrasound.? Shockwave lithotripsy was performed, after the first 300 shocks a pause for 3 minutes.? A total of 2000 shocks to a maximum of power of 18 with a maximum rate of 120 hertz.? Good fragmentation of the stone was appreciated. The patient tolerated the procedure well and was transferred to the recovery area upon completion. Complications: None
[2022-01-18 08:20] VITALS: BP 122/89; PULSE 86; RESP 16; O2SAT 99
[2022-01-18 08:25] VITALS: BP 136/85; PULSE 83; RESP 16; TEMP 36.6; O2SAT 99
== END 2022-01-18 09:01 | disposition home or self-care (01) ==
PROVIDERS: Nurse Practitioner; PCP Family Medicine; Visit Provider Urology
PROC: (CPT 50590; principal; 2022-01-18 07:30)
DX: N20.0 Calculus of kidney (principal); J45.909 Unspecified asthma, uncomplicated; E78.5 Hyperlipidemia, unspecified; Z79.899 Other long term (current) drug therapy
CPT/HCPCS: 50590; 74018; 81025; J0690; J2250

== ENCOUNTER 2022-01-19 14:36 | Emergency (ER) | payer OTHER, SELFPAY ==
--- NOTE | ~2022-01-19 | US_ITS ---
EXAMINATION: US RETROPERITONEAL LIMITED (RENAL ONLY) CLINICAL INFORMATION: Right flank pain status post lithotripsy 01/18/2022. COMPARISON: None TECHNIQUE: Sonographic evaluation of the kidneys. FINDINGS: RIGHT KIDNEY: 10.1 x 6.3 x 5.4 cm (SAG x AP x TRV). The kidney is normal in size, contour, and echogenicity. Renal cortical thickness is normal. No calculi or focal parenchymal lesions. No hydronephrosis. LEFT KIDNEY: 11.1 x 5.8 x 4.7 cm (SAG x AP x TRV). The kidney is normal in size, contour, and echogenicity. Renal cortical thickness is normal. No calculi. Mild fullness of the renal pelvis. No significant hydronephrosis. Midpole 1 cm simple cyst. No specific follow-up recommended. US/US renal BI IMPRESSION: Mild fullness of the left renal pelvis. No significant hydronephrosis. No calculi identified.
[2022-01-19 15:14] VITALS: BP 169/100; PULSE 109; RESP 20; TEMP 36.9; O2SAT 95; BMI 32.8
--- NOTE | 2022-01-19 15:14 | ED_ITS ---
HPI - Abdominal Pain General Chief Complaint: Back Pain/Injury <LEONIE Calle - Last Filed: 01/19/22 15:20> Stated Complaint: back pain kidney stone <LEONIE Calle - Last Filed: 01/19/22 15:20> Time Seen by Provider: 01/19/22 17:41 <LEONIE Calle - Last Filed: 01/19/22 15:20> History of Present Illness HPI narrative: Patient had lithotripsy yesterday to break up a kidney stone Today she bent over to pick something up and felt a sharp pain in the right side of her back, the pain is worse with movement there is no radiation of the pain there is no dysuria there is no obvious blood in the urine, there is no fever no abdominal pain, pain does not radiate to the groin, pain is worse with bending and somewhat relieved with laying down <LEONIE Gavin - Last Filed: 01/19/22 19:09> Related Data Home Medications: Home Medications Medication Instructions Recorded Confirmed eletriptan 40 mg tablet 40 mg PO DAILY MRX1 PRN Migraine 03/24/21 01/11/22 Headache simvastatin 40 mg tablet 40 mg PO BEDTIME 03/24/21 01/11/22 cyanocobalamin (vitamin B-12) 1,000 mcg PO DAILY 12/09/21 01/11/22 1,000 mcg tablet gabapentin 100 mg capsule 100 - 300 mg PO BEDTIME 12/09/21 01/11/22 levalbuterol tartrate 45 2 puff inhalation Q4-6H PRN 12/09/21 01/11/22 mcg/actuation aerosol inhaler Shortness Of Breath norethindrone 1 mg-ethinyl 1 tab PO DAILY 12/09/21 01/11/22 estradiol 10 mcg (24)-iron 10 mcg(2) tablet (Lo Loestrin Fe) oxybutynin chloride 10 mg 10 mg PO DAILY 12/22/21 01/11/22 tablet,extended release 24 hr metformin 500 mg tablet 1 tab PO DAILY 01/11/22 01/11/22 Previous Rx's Medication Instructions Recorded riboflavin (vitamin B2) 400 mg 400 mg PO QAM #30 tabs 05/27/21 tablet tamsulosin 0.4 mg capsule 0.4 mg PO BEDTIME 14 days #14 caps 12/09/21 hydrocodone 5 mg-acetaminophen 325 1 tab PO Q6H PRN pain #10 tabs 12/13/21 mg tablet phenazopyridine 200 mg tablet 200 mg PO TID #30 tabs 12/15/21 (Pyridium) omalizumab 150 mg/mL subcutaneous 150 mg subcut Q4W 28 days #1 mL 12/21/21 syringe (Xolair) Symbicort 160 mcg-4.5 2 puff inhalation BID 30 days 12/26/21 mcg/actuation HFA aerosol inhaler #10.2 grams (budesonide-formoterol) oxycodone-acetaminophen 5 mg-325 1 tab PO Q6H PRN pain #6 tabs 01/18/22 mg tablet (Percocet) acetaminophen 500 mg tablet 1,000 mg PO QID PRN pain #30 tabs 01/19/22 cyclobenzaprine 5 mg tablet 5 mg PO TID PRN muscle spasm #10 01/19/22 tabs ibuprofen 600 mg tablet 600 mg PO Q6H PRN pain #20 tabs 01/19/22 oxycodone 5 mg tablet 5 mg PO Q6H PRN pain #10 tabs 01/19/22 <LEONIE Calle - Last Filed: 01/19/22 15:20> Allergies/Adverse Reactions: Allergies Allergy/AdvReac Type Severity Reaction Status Date / Time pseudoephedrine Allergy Palpitation Verified 01/18/22 06:37 [From Boris] s SEASONAL ALLERGIES Allergy Mild SNEEZING Uncoded 01/18/22 06:37 RUNNY NOSE <LEONIE Calle - Last Filed: 01/19/22 15:20> Review of Systems Review of Systems Positive for right-sided low back pain worse with movement Negatives no fever no chills no dizziness no weakness no fainting no feeling faint no headache no neck pain no chest pain no abdominal pain no changes to bowel or bladder no dysuria no frequency no hematuria no nausea vomiting or diarrhea no radiation of the back pain no numbness weakness or tingling <LEONIE Gavin Last Filed: 01/19/22 19:09> Yes all other systems are reviewed and are negative <LEONIE Gavin - Last Filed: 01/19/22 19:09> PMFSH Past Medical History Source: nursing notes reviewed <LEONIE Gavin - Last Filed: 01/19/22 19:09> Medical History: Medical History Allergic rhinitis Asthma Hyperlipidemia Insomnia Irritable bowel syndrome Lumbar spondylosis Migraines Obesity <LEONIE Calle - Last Filed: 01/19/22 15:20> Surgical History: Surgical History H/O dilation and curettage H/O wrist surgery Hx of cystoscopy <LEONIE Calle - Last Filed: 01/19/22 15:20> Family History Family History: Family History Mother Thyroid disease CAD (coronary artery disease) Father Stroke Angina at rest Maternal Grandmother Breast cancer Recurrent strokes <LEONIE Calle - Last Filed: 01/19/22 15:20> Social History Social History: Social History Household Members: Family Housing: House Do you presently have visiting nurse or other home services: No Alcohol intake: current Alcohol intake frequency: a few times a month Patient Tobacco Use Status: Never used Tobacco Second Hand Smoke Exposure: No Advance Directives: No Advance Directives Information Provided: Yes service: No <LEONIE Calle - Last Filed: 01/19/22 15:20> Physical Exam ED Vital Signs: Vital Signs - 24 hr 01/19/22 15:14 01/19/22 18:35 Temperature 98.5 F 98.6 F Pulse Rate 109 H 86 Respiratory Rate 20 16 Blood Pressure 169/100 H 162/92 H Pulse Oximetry 95 95 Oxygen Delivery Method Room Air BMI result Body Mass Index 32.8 <LEONIE Calle - Last Filed: 01/19/22 15:20> Vital Signs - 24 hr 01/19/22 15:14 01/19/22 18:35 Temperature 98.5 F 98.6 F Pulse Rate 109 H 86 Respiratory Rate 20 16 Blood Pressure 169/100 H 162/92 H Pulse Oximetry 95 95 Oxygen Delivery Method Room Air BMI result Body Mass Index 32.8 <LEONIE Gavin - Last Filed: 01/19/22 19:09> General appearance no acute distress Head is normocephalic atraumatic Neck is supple Chest is clear to auscultation bilateral Abdomen is soft and nontender no pelvic tenderness, no flank tenderness Back exam there is some right-sided lumbar tenderness around the L1 area, this is soft tissue tenderness, no bony tenderness, pain is worse with movement Extremities full range of motion x4 Neuro gait and balance are normal, interaction both comprehension and expression are normal, motor is 5/5 x4 and sensation is intact and symmetrical <LEONIE Gavin - Last Filed: 01/19/22 19:09> Course Course Course Narrative: RME--51-year-old female with a past medical history of renal stone s/p lithotripsy yesterday presenting to the ED complaining of sudden onset right- sided low back pain s/p bending over today. Denies dysuria/hematuria, radiation of pain down lower extremities from urine incontinence/retention, fever + right CVA tenderness noted on exam as MSK right-sided low back pain Labs, UA, renal ultrasound, p.o. Flexeril ordered in triage <LEONIE Calle - Last Filed: 01/19/22 15:20> RME--51-year-old female with a past medical history of renal stone s/p lithotripsy yesterday presenting to the ED complaining of sudden onset right- sided low back pain s/p bending over today. Denies dysuria/hematuria, radiation of pain down lower extremities from urine incontinence/retention, fever + right CVA tenderness noted on exam as MSK right-sided low back pain Labs, UA, renal ultrasound, p.o. Flexeril ordered in triage Renal ultrasound did not show any evidence of kidney stones, no significant hydronephrosis, no other significant normality Urinalysis was normal Blood tests were normal Patient's exam is consistent with likely muscle strain from bending in her right side back muscles I did text and communicate with Dr. Saenz, the urologist who did the lithotripsy yesterday She agreed patient could be discharged with pain meds and she will follow-up with the patient in her clinic Patient left with pain improved after analgesics, ambulating easily and was discharged <LEONIE Gavin - Last Filed: 01/19/22 19:09> Medications Administered Discontinued Medications Generic Name Dose Route Start Last Admin Trade Name Freniki PRN Reason Stop Dose Admin Cyclobenzaprine HCl 10 mg 01/19/22 15:18 01/19/22 17:58 Cyclobenzaprine Hcl 10 Mg Tablet PO 01/19/22 15:19 10 mg ONCE ONE Administration Ketorolac Tromethamine 15 mg 01/19/22 18:24 01/19/22 18:39 Ketorolac Tromethamine 15 Mg/Ml Vial IM 01/19/22 18:25 15 mg ONCE ONE Administration Oxycodone HCl 5 mg 01/19/22 18:24 01/19/22 18:38 Oxycodone Hcl Immed Release 5 Mg Tablet PO 01/19/22 18:25 5 mg ONCE ONE Administration <LEONIE Calle - Last Filed: 01/19/22 15:20> Medications Administered Discontinued Medications Generic Name Dose Route Start Last Admin Trade Name Mike PRN Reason Stop Dose Admin Cyclobenzaprine HCl 10 mg 01/19/22 15:18 01/19/22 17:58 Cyclobenzaprine Hcl 10 Mg Tablet PO 01/19/22 15:19 10 mg ONCE ONE Administration Ketorolac Tromethamine 15 mg 01/19/22 18:24 01/19/22 18:39 Ketorolac Tromethamine 15 Mg/Ml Vial IM 01/19/22 18:25 15 mg ONCE ONE Administration Oxycodone HCl 5 mg 01/19/22 18:24 01/19/22 18:38 Oxycodone Hcl Immed Release 5 Mg Tablet PO 01/19/22 18:25 5 mg ONCE ONE Administration <LEONIE Gavin - Last Filed: 01/19/22 19:09> MDM - Abdominal Pain Lab Data Attestation: I reviewed the patient's lab results. <LEONIE Gavin - Last Filed: 01/19/22 19:09> Result diagrams: : 01/19/22 16:23 01/19/22 16:23 <LEONIE Calle - Last Filed: 01/19/22 15:20> Labs: Lab Results 01/19/22 01/19/22 01/19/22 Range/Units 15:34 16:23 16:23 WBC 9.3 (4.8-10.8) X10*3/uL RBC 4.52 (4.20-5.50) X10*6/uL Hgb 13.8 (12.0-16.0) g/dl Hct 41.8 (37.0-47.0) % MCV 92.5 (80.0-98.0) fL MCH 30.5 (27.0-33.0) pg MCHC 33.0 (31.0-35.0) g/dl RDW 12.8 (11.0-16.0) % Plt Count 340 (160-400) X10*3/uL MPV 9.6 (9.4-12.3) fL Immature Gran % (Auto) 0.2 (0.0-0.4) % Neut % (Auto) 56.0 (45-73) % Lymph % (Auto) 36.5 (20-40) % [place] % (Auto) 5.7 (2-11) % Eos % (Auto) 1.1 (0-4) % Baso % (Auto) 0.5 (0-2) % Lymph # (Auto) 3.4 (1.2-4.9) X10*3/uL [place] # (Auto) 0.5 (0.1-1.2) X10*3/uL Eos # (Auto) 0.1 (0.0-0.4) X10*3/uL Baso # (Auto) 0.1 (0.0-0.2) X10*3/uL Abs Immat Gran (auto) 0.02 (0.00-0.03) X10*3/uL Absolute Neuts (auto) 5.2 (2.0-8.3) x10*3/uL Absolute Nucleated RBC 0.000 (0.0-0.012) X10*3/uL Nucleated RBC % (auto) 0.0 (0.0-0.2) /100WBC Sodium 139 (135-145) mmol/L Potassium 4.4 (3.3-5.1) mmol/L Chloride 106 (96-108) mmol/L Carbon Dioxide 24 (22-29) mmol/L Anion Gap 13 (12-20) BUN 9 (9-16) mg/dL Creatinine 0.71 (0.5-1.4) mg/dL Estim Creat Clear Calc 87.4 Estimated GFR > 60 Random Glucose 75 (60-115) mg/dL Calcium 9.4 (8.4-10.2) mg/dL Magnesium 2.1 (1.6-2.6) mg/dL Total Bilirubin 0.4 (0.0-1.0) mg/dL Direct Bilirubin < 0.2 (0.0-0.5) mg/dL AST 19 (5-31) U/L ALT 15 (0-31) U/L Alkaline Phosphatase 36 L (39-117) U/L Total Protein 7.2 (6.5-8.0) g/dL Albumin 4.1 (3.5-5.0) g/dL Urine Color Yellow Urine Appearance Clear Urine pH 6.0 (5.0-9.0) Ur Specific [place] 1.015 (1.005-1.025) Urine Protein Negative (Neg-Trace) mg/dL Urine Glucose (UA) Negative (Negative) mg/dL Urine Ketones Negative (Negative) mg/dL Urine Blood Small (1+) H (Negative) Urine Nitrite Negative (Negative) Ur Leukocyte Esterase Negative (Negative) Urine RBC 3-5 H (0-2) /HPF Urine WBC 0-5 (0-5) /HPF Ur Squamous Epith Cells 6-10 (0-2) /HPF Urine Bacteria None Seen (None Seen) Hyaline Casts 0-2 (0-2) /LPF <LEONIE Calle - Last Filed: 01/19/22 15:20> Lab Results 01/19/22 01/19/22 01/19/22 Range/Units 15:34 16:23 16:23 WBC 9.3 (4.8-10.8) X10*3/uL RBC 4.52 (4.20-5.50) X10*6/uL Hgb 13.8 (12.0-16.0) g/dl Hct 41.8 (37.0-47.0) % MCV 92.5 (80.0-98.0) fL MCH 30.5 (27.0-33.0) pg MCHC 33.0 (31.0-35.0) g/dl RDW 12.8 (11.0-16.0) % Plt Count 340 (160-400) X10*3/uL MPV 9.6 (9.4-12.3) fL Immature Gran % (Auto) 0.2 (0.0-0.4) % Neut % (Auto) 56.0 (45-73) % Lymph % (Auto) 36.5 (20-40) % [place] % (Auto) 5.7 (2-11) % Eos % (Auto) 1.1 (0-4) % Baso % (Auto) 0.5 (0-2) % Lymph # (Auto) 3.4 (1.2-4.9) X10*3/uL [place] # (Auto) 0.5 (0.1-1.2) X10*3/uL Eos # (Auto) 0.1 (0.0-0.4) X10*3/uL Baso # (Auto) 0.1 (0.0-0.2) X10*3/uL Abs Immat Gran (auto) 0.02 (0.00-0.03) X10*3/uL Absolute Neuts (auto) 5.2 (2.0-8.3) x10*3/uL Absolute Nucleated RBC 0.000 (0.0-0.012) X10*3/uL Nucleated RBC % (auto) 0.0 (0.0-0.2) /100WBC Sodium 139 (135-145) mmol/L Potassium 4.4 (3.3-5.1) mmol/L Chloride 106 (96-108) mmol/L Carbon Dioxide 24 (22-29) mmol/L Anion Gap 13 (12-20) BUN 9 (9-16) mg/dL Creatinine 0.71 (0.5-1.4) mg/dL Estim Creat Clear Calc 87.4 Estimated GFR > 60 Random Glucose 75 (60-115) mg/dL Calcium 9.4 (8.4-10.2) mg/dL Magnesium 2.1 (1.6-2.6) mg/dL Total Bilirubin 0.4 (0.0-1.0) mg/dL Direct Bilirubin < 0.2 (0.0-0.5) mg/dL AST 19 (5-31) U/L ALT 15 (0-31) U/L Alkaline Phosphatase 36 L (39-117) U/L Total Protein 7.2 (6.5-8.0) g/dL Albumin 4.1 (3.5-5.0) g/dL Urine Color Yellow Urine Appearance Clear Urine pH 6.0 (5.0-9.0) Ur Specific [place] 1.015 (1.005-1.025) Urine Protein Negative (Neg-Trace) mg/dL Urine Glucose (UA) Negative (Negative) mg/dL Urine Ketones Negative (Negative) mg/dL Urine Blood Small (1+) H (Negative) Urine Nitrite Negative (Negative) Ur Leukocyte Esterase Negative (Negative) Urine RBC 3-5 H (0-2) /HPF Urine WBC 0-5 (0-5) /HPF Ur Squamous Epith Cells 6-10 (0-2) /HPF Urine Bacteria None Seen (None Seen) Hyaline Casts 0-2 (0-2) /LPF <LEONIE Gavin - Last Filed: 01/19/22 19:09> Discharge Plan Discharge Clinical Impression: Back pain <LEONIE Calle - Last Filed: 01/19/22 15:20> Patient Disposition: Home, Self-Care <LEONIE Calle Last Filed: 01/19/22 15:20> Additional Instructions: It is likely that the pain in her back is a muscle strain from when you bent over this morning We did an ultrasound which did not show any obvious kidney stones, no obvious hydronephrosis, no obvious blockages The urine test did not show any signs of infection I communicated with Dr. Saenz who did the lithotripsy and agreed that it is safe to be discharged home with pain medicine and she recommended follow with her office so call them tomorrow Return to the ER any time for any worsening pain, fever, discomfort with urination any worse condition or any concerns <LEONIE Calle - Last Filed: 01/19/22 15:20> Prescriptions: New oxycodone 5 mg tablet 5 mg PO Q6H PRN (Reason: pain) Qty: 10 0RF Rx Instructions: Partial Fill upon patient request. acetaminophen 500 mg tablet 1,000 mg PO QID PRN (Reason: pain) Qty: 30 0RF cyclobenzaprine 5 mg tablet 5 mg PO TID PRN (Reason: muscle spasm) Qty: 10 0RF Rx Instructions: This medication may cause drowsiness, no driving for 8 hours after taking ibuprofen 600 mg tablet 600 mg PO Q6H PRN (Reason: pain) Qty: 20 0RF No Action hydrocodone-acetaminophen 5-325 mg tablet 1 tab PO Q6H PRN (Reason: pain) Qty: 10 0RF Rx Instructions: Partial Fill upon patient request. Xolair 150 mg/mL syringe 150 mg subcut Q4W 28 Days Qty: 1 12RF budesonide-formoterol [Symbicort] 160-4.5 mcg/actuation HFA aerosol inhaler 2 puff inhalation BID 30 Days Qty: 10.2 6RF levalbuterol tartrate 45 mcg/actuation HFA aerosol inhaler 2 puff inhalation Q4-6H PRN (Reason: Shortness Of Breath) Lo Loestrin Fe 1 mg-10 mcg (24)/10 mcg (2) tablet 1 tab PO DAILY cyanocobalamin (vitamin B-12) 1,000 mcg Tablet 1,000 mcg PO DAILY gabapentin 100 mg Capsule 100 - 300 mg PO BEDTIME tamsulosin 0.4 mg capsule 0.4 mg PO BEDTIME 14 Days Qty: 14 0RF metformin 500 mg tablet 1 tab PO DAILY oxycodone-acetaminophen [Percocet] 5-325 mg tablet 1 tab PO Q6H PRN (Reason: pain) Qty: 6 0RF Rx Instructions: Partial Fill upon patient request. oxybutynin chloride 10 mg tablet extended release 24hr 10 mg PO DAILY phenazopyridine [Pyridium] 200 mg tablet 200 mg PO TID Qty: 30 0RF Rx Instructions: take med with food simvastatin 40 mg tablet 40 mg PO BEDTIME eletriptan 40 mg tablet 40 mg PO DAILY MRX1 PRN (Reason: Migraine Headache) Rx Instructions: do not exceed 2 doses per 24 hrs riboflavin (vitamin B2) 400 mg tablet 400 mg PO QAM Qty: 30 6RF <LEONIE Calle - Last Filed: 01/19/22 15:20> Referrals: Greer Mann MD [Physician] - <LEONIE Calle - Last Filed: 01/19/22 15:20> Stand Alone Forms: Work/School Release <LEONIE Calle - Last Filed: 01/19/22 15:20> Interventions: ED Discharge Assessment Last Done: 01/19/22 18:45 <LEONIE Calle - Last Filed: 01/19/22 15:20> Discharge Date/Time: 01/19/22 18:45 <LEONIE Calle - Last Filed: 01/19/22 15:20>
[2022-01-19 16:17] LABS: Appearance Urine Clear; Color Urine Yellow; Glucose Urine UA Negative (Negative); Leukocyte Esterase Urine Negative (Negative); Nitrite Urine Negative (Negative); Specific Gravity - Urine 1.015 (1.005-1.025); UMIC TRIGGER UACC YES; Urine Blood Small (1+) (Negative); Urine Ketones Negative (Negative); Urine Protein Negative (Neg-Trace)
[2022-01-19 16:33] LABS: Bacteria Urine None Seen (None Seen); Hyaline Casts Urine 0-2 /LPF (0-2); WBC Urine 0-5 /HPF (0-5)
[2022-01-19 16:41] LABS: MANUAL DIFF FLAG NO
[2022-01-19 16:43] LABS: Basophils Absolute Auto 0.1 X10*3/uL (0.0-0.2); Basophils Percent Auto 0.5 % (0-2); Eosinophils Absolute Auto 0.1 X10*3/uL (0.0-0.4); Eosinophils Percent Auto 1.1 % (0-4); Hematocrit 41.8 % (37.0-47.0); Hemoglobin 13.8 g/dl (12.0-16.0); Imm Gran Abs Auto 0.02 X10*3/uL (0.00-0.03); Imm Gran Pct Auto 0.2 % (0.0-0.4); Lymphocytes Absolute Auto 3.4 X10*3/uL (1.2-4.9); Lymphocytes Percent Auto 36.5 % (20-40); Mean Corpuscular Hemoglobin 30.5 pg (27.0-33.0); Mean Corpuscular Volume 92.5 fL (80.0-98.0); Mean Platelet Volume 9.6 fL (9.4-12.3); Monocytes Absolute Auto 0.5 X10*3/uL (0.1-1.2); Monocytes Percent Auto 5.7 % (2-11); Neutrophils Absolute Auto 5.2 x10*3/uL (2.0-8.3); Platelet Count 340 X10*3/uL (160-400); Red Blood Count 4.52 X10*6/uL (4.20-5.50); Red Cell Distribution Width 12.8 % (11.0-16.0); White Blood Count 9.3 X10*3/uL (4.8-10.8)
[2022-01-19 17:02] LABS: Alanine Aminotransferase 15 U/L (0-31); Alkaline Phosphatase 36 U/L (39-117); Anion Gap 13 (12-20); Aspartate Amino Transferase 19 U/L (5-31); Bilirubin Direct < 0.2 mg/dL (0.0-0.5); Bilirubin Total 0.4 mg/dL (0.0-1.0); Blood Urea Nitrogen 9 mg/dL (9-16); Calcium 9.4 mg/dL (8.4-10.2); Carbon Dioxide 24 mmol/L (22-29); Chloride 106 mmol/L (96-108); Creatinine Clr Calc Pharmacy 87.4; Estimated Glomerular Filt Rate > 60; Glucose Random 75 mg/dL (60-115); Magnesium 2.1 mg/dL (1.6-2.6); Potassium 4.4 mmol/L (3.3-5.1); Sodium 139 mmol/L (135-145); Total Protein 7.2 g/dL (6.5-8.0)
[2022-01-19 17:11] LABS: Albumin Level 4.1 g/dL (3.5-5.0)
[2022-01-19] MEDS: Cyclobenzaprine HCl 10 MG TABLET PO (17:58)
[2022-01-19 18:35] VITALS: BP 162/92; PULSE 86; RESP 16; TEMP 37; O2SAT 95
[2022-01-19] MEDS: oxyCODONE HCl Immed Release 5 MG TABLET PO (18:38)
[2022-01-19] MEDS: Ketorolac Tromethamine 15 MG/ML VIAL IM (18:39)
== END 2022-01-19 18:45 | disposition home or self-care (01) ==
PROVIDERS: Physician Assistant; Emergency Provider Emergency Medicine; PCP Family Medicine
DX: R10.11 Right upper quadrant pain (principal); M54.50 Low back pain, unspecified; Z79.899 Other long term (current) drug therapy
CPT/HCPCS: 36415; 76775; 80048; 80076; 81001; 83735; 85025; 96372; 99284; J1885

== ENCOUNTER → 2022-03-20 10:00 | Outpatient (BNVA) | payer OTHER, SELFPAY | PROVIDERS: PCP Family Medicine; Visit Provider Urology | DX: N20.0 Calculus of kidney (principal) ==

== ENCOUNTER → 2022-08-08 09:36 | Outpatient (BNVA) | payer OTHER, SELFPAY | PROVIDERS: PCP Family Medicine; Visit Provider Nurse Practitioner Family ==

== ENCOUNTER 2022-11-25 11:14 | Outpatient (AMB) | payer OTHER, SELFPAY ==
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
[2022-11-25 12:22] VITALS: BP 130/80; PULSE 89; TEMP 36.9; O2SAT 98; BMI 31.0
== END 2022-11-25 13:10 | disposition home or self-care (01) ==
PROVIDERS: PCP Family Medicine; Visit Provider Physician Assistant Medical
DX: S20.212A Contusion of left front wall of thorax, initial encounter (principal)
CPT/HCPCS: 99214

== ENCOUNTER 2022-11-25 13:19 | Outpatient (REF) | payer OTHER, SELFPAY ==
--- NOTE | ~2022-11-25 | XR_ITS ---
EXAMINATION: XR RIBS, LEFT CLINICAL INFORMATION: Contusion and pain. COMPARISON: Chest CT January 02, 2022 and chest x-ray November 17, 2021 TECHNIQUE: 3 views of the left ribs were obtained. FINDINGS: Lungs are clear. No consolidation, pneumothorax, or pleural effusion. The cardiomediastinal silhouette and pulmonary vasculature are normal. Osseous structures are unremarkable. Ribs are intact. No fractures are identified. XR/XR ribs LT min 3V w CXR1V IMPRESSION: No left-sided rib fracture identified.
== END 2022-11-25 13:20 | disposition home or self-care (01) ==
LOC: HO.HMGCX 13:19
PROVIDERS: PCP Family Medicine; Visit Provider Physician Assistant Medical
DX: S20.212A Contusion of left front wall of thorax, initial encounter (principal)
CPT/HCPCS: 71101

== ENCOUNTER 2022-12-07 07:14 | Outpatient (REF) | payer OTHER, SELFPAY | END 2022-12-07 07:15 | disposition home or self-care (01) | LOC: HO.CT 07:14 | PROVIDERS: PCP Family Medicine; Visit Provider Nurse Practitioner Family | DX: R91.1 Solitary pulmonary nodule (principal) | CPT/HCPCS: 71250 ==

== ENCOUNTER 2023-02-02 10:41 | Outpatient (AMB) | payer OTHER, SELFPAY ==
[2023-02-02 10:47] VITALS: BP 102/80; PULSE 90; O2SAT 98; BMI 29.5
--- NOTE | 2023-02-02 10:47 | MHC.OFFVIS ---
Intake Vital Signs 02/02/23 10:47 Height 5 ft Weight 151 lb 0.266 oz BMI 29.5 BP 102/80 Blood Pressure Location Lt brachial Position Sitting Pulse 90 Pulse Source Doppler Pulse Oximetry (%) 98 Oxygen Delivery Method Room Air Intake Visit Reasons: pulm nodule Allergies pseudoephedrine [From Sudafed] Allergy (Verified 02/02/23 10:49) Palpitations SEASONAL ALLERGIES Allergy (Mild, Uncoded 11/25/22 12:22) SNEEZING RUNNY NOSE HPI pulm nodule HPI Details 52-year-old lady now followed for moderate to severe persistent asthma and environmental allergies. She has been using Symbicort and levalbuterol with good control of his symptoms. She was approved for Xolair, however she cannot afford it. She denies any recent exacerbations. [facility] Medical History Insomnia Migraines Irritable bowel syndrome Lumbar spondylosis Asthma Hyperlipidemia Obesity Allergic rhinitis Surgical History H/O dilation and curettage Hx of cystoscopy H/O wrist surgery Family History Mother Thyroid disease CAD (coronary artery disease) Father Stroke Angina at rest Maternal Grandmother Breast cancer Recurrent strokes Social History Household Members: Family Housing: House Do you presently have visiting nurse or other home services: No Alcohol intake: current Alcohol intake frequency: a few times a month Patient Tobacco Use Status: Never used Tobacco Second Hand Smoke Exposure: No service: No Review of Systems Const Denies daytime sleepiness, Denies excessive sweating, Denies fatigue, Denies fever(s), Denies lethargy, Denies malaise, Denies night sweats, Denies snoring and Denies weight loss Eyes Denies blurry vision and Denies itchy eyes ENT Denies nasal congestion, Denies post nasal drip, Denies sinus pain, Denies sinus pressure and Denies other ( Thrush) Card Denies chest pain, Denies pedal edema, Denies dyspnea, Denies orthopnea and Denies paroxysmal nocturnal dyspnea Resp Denies cough, Denies hemoptysis, Denies excessive phlegm production, Denies dyspnea, Denies snoring and Denies wheezing GI Denies abdominal pain and Denies heartburn Musc Denies myalgias, Denies arthralgias and Denies joint swelling Skin/Breast Denies rash Neuro Denies memory loss and Denies seizure-like activity Psych Denies abnormal sleep pattern, Denies anxiety and Denies memory loss Endo Denies excessive sweating, Denies fatigue and Denies heat intolerance Melvin/Lymph Denies easy bruising Aller/Immun Denies itchy eyes, Denies seasonal rhinorrhea and Denies wheezing Physical Exam Vital Signs: Last Vital Signs Pulse 90 02/02/23 10:47 BP 102/80 02/02/23 10:47 Pulse Ox 98 02/02/23 10:47 Oxygen Delivery Method Room Air 02/02/23 10:47 BMI result Body Mass Index 29.5 Const General: no acute distress and alert Nutritional Appearance: not obese Orientation/consciousness: Other orientation findings ( oriented) HEENT Head: Yes atraumatic Eyes General: appearance normal, both eyes and all related structures Sclerae: sclerae normal EOM: EOMs intact bilaterally Neck Neck: Yes supple Lymphatic: no lymphadenopathy noted Resp Effort & Inspection: normal respiratory effort and no use of accessory muscles Auscultation: clear to auscultation bilaterally Cardio Rate: regular rate Rhythm: regular rhythm Heart sounds: no gallops, no murmurs and no rubs Skin General skin exam: other ( warm) Extrem General: No clubbing, No cyanosis and No edema Assessment & Plan Assessment & Plan (1) Asthma: Code(s): J45.909 - Unspecified asthma, uncomplicated Plan: Well controlled on current regimen of Symbicort on levalbuterol. Continue current regimen. (2) Environmental allergies: Code(s): Z91.09 - Other allergy status, other than to drugs and biological substances Plan: Approved for Xolair, however cannot afford co-pay. Patient states that symptoms are better as she avoids triggers. (3) Pulmonary nodule: Code(s): R91.1 - Solitary pulmonary nodule Plan: For follow-up CT chest reviewed, stable 4 mm pulmonary nodule. Will repeat CT chest in 12 months, if stable at that time then no further imaging would be required. Orders: Orders CT chest wo IV con 01/14/24 R91.1 - Solitary pulmonary nodule Medications: Discontinued omalizumab (Xolair) Discontinued Reason: Doctor's Order 150 mg subcut Q4W 1 mL 12RF 28 days Coding Level of Care Code Est Pt Level 4 (61067) Diagnoses Asthma J45.909 Environmental allergies Z91.09 Pulmonary nodule R91.1
== END 2023-02-02 11:50 | disposition home or self-care (01) ==
PROVIDERS: PCP Family Medicine; Visit Provider Internal Medicine Pulmonary Disease
DX: J45.909 Unspecified asthma, uncomplicated (principal); Z91.09 Other allergy status, other than to drugs and biological substances; R91.1 Solitary pulmonary nodule
CPT/HCPCS: 99214

== ENCOUNTER → 2023-02-02 10:41 | Outpatient (BNVA) | payer OTHER, SELFPAY | PROVIDERS: PCP Family Medicine; Visit Provider Internal Medicine Pulmonary Disease ==

== ENCOUNTER 2024-01-02 10:20 | Outpatient (REF) | payer OTHER, SELFPAY ==
--- NOTE | ~2024-01-02 | CT_ITS ---
EXAMINATION: CT CHEST WITHOUT CONTRAST CLINICAL INFORMATION: Solitary pulmonary nodule COMPARISON: CT chest 12/07/2022, CT abdomen/pelvis 10/25/2014 TECHNIQUE: Multidetector volumetric CT imaging of the chest was done. Axial MIP volume rendering provided. Sagittal and coronal reformatted images were obtained. This CT examination was performed using dose optimization techniques as appropriate, variously including the following: *Automated exposure control *Adjustment of mA and/or kV according to patient size (this includes techniques or standardized protocols for targeted exams where dose is matched to indication/reason for exam; i.e. extremities or head) *Use of iterative reconstruction technique DLP: 246 mGy-cm FINDINGS: LUNGS: Central airways are patent. Stable 0.4 cm lingular pulmonary nodule (series #4 axial image 333), unchanged dating back to 2014 and favored to represent a benign etiology. No new or suspicious pulmonary nodule. No focal consolidation or mass. No pleural effusion or pneumothorax. MEDIASTINUM: The mediastinum is normal. Calcified subcarinal nodes, as before. No mediastinal or hilar lymphadenopathy. Normal thyroid. Normal central vasculature. CORONARY ARTERY CALCIFICATION: None visualized on this study. AXILLA: No lymphadenopathy. UPPER ABDOMEN: Unremarkable. OSSEOUS STRUCTURES: Unremarkable. CT/CT chest wo IV con IMPRESSION: 1. Stable 0.4 cm lingular pulmonary nodule, unchanged dating back to 2014 and favored to represent a benign etiology. No new or suspicious pulmonary nodule. 2. No acute pulmonary disease. Fleischner guidelines were followed. Electronically signed by: Lenora Swift DO 01/22/2024 10:54 AM EST
== END 2024-01-02 10:21 | disposition home or self-care (01) ==
LOC: HO.CT 10:20
PROVIDERS: PCP Family Medicine; Visit Provider Internal Medicine Pulmonary Disease
DX: R91.1 Solitary pulmonary nodule (principal)
CPT/HCPCS: 71250

== ENCOUNTER 2024-01-30 08:43 | Outpatient (AMB) | payer OTHER, SELFPAY ==
[2024-01-30 08:53] VITALS: BP 138/84; PULSE 118; O2SAT 98; BMI 32.6
--- NOTE | 2024-01-30 08:53 | MHC.OFFVIS ---
Vital Signs 01/30/24 08:53 Height 5 ft Weight 167 lb BMI 32.6 BP 138/84 Blood Pressure Location Rt brachial Position Sitting Pulse 118 H Pulse Source Doppler Pulse Oximetry (%) 98 Oxygen Delivery Method Room Air Intake Visit Reasons: pulm nodule Allergies pseudoephedrine [From Sudafed] Allergy (Verified 02/02/23 10:49) Palpitations SEASONAL ALLERGIES Allergy (Mild, Uncoded 11/25/22 12:22) SNEEZING RUNNY NOSE HPI HPI pulm nodule: Details: 53-year-old lady now followed for moderate to severe persistent asthma and environmental allergies. She has been using Symbicort and levalbuterol with good control of her symptoms. She was approved for Xolair, however she cannot afford it. She denies any recent exacerbations. [facility] Medical History Insomnia Migraines Irritable bowel syndrome Lumbar spondylosis Asthma Hyperlipidemia Obesity Allergic rhinitis Surgical History H/O dilation and curettage Hx of cystoscopy H/O wrist surgery Family History Mother Thyroid disease CAD (coronary artery disease) Father Stroke Angina at rest Maternal Grandmother Breast cancer Recurrent strokes Social History Household Members: Family Housing: House Do you presently have visiting nurse or other home services: No Alcohol intake: current Alcohol intake frequency: a few times a month Patient Tobacco Use Status: Never used Tobacco Second Hand Smoke Exposure: No service: No Review of Systems Const Denies daytime sleepiness, Denies excessive sweating, Denies fatigue, Denies fever(s), Denies lethargy, Denies malaise, Denies night sweats, Denies snoring and Denies weight loss Eyes Denies blurry vision and Denies itchy eyes ENT Denies nasal congestion, Denies post nasal drip, Denies sinus pain, Denies sinus pressure and Denies other ( Thrush) Card Denies chest pain, Denies pedal edema, Denies dyspnea, Denies orthopnea and Denies paroxysmal nocturnal dyspnea Resp Denies cough, Denies hemoptysis, Denies excessive phlegm production, Denies dyspnea, Denies snoring and Denies wheezing GI Denies abdominal pain and Denies heartburn Musc Denies myalgias, Denies arthralgias and Denies joint swelling Skin/Breast Denies rash Neuro Denies memory loss and Denies seizure-like activity Psych Denies abnormal sleep pattern, Denies anxiety and Denies memory loss Endo Denies excessive sweating, Denies fatigue and Denies heat intolerance Melvin/Lymph Denies easy bruising Aller/Immun Denies itchy eyes, Denies seasonal rhinorrhea and Denies wheezing Physical Exam Vital Signs: Last Vital Signs Pulse 118 H 01/30/24 08:53 BP 138/84 01/30/24 08:53 Pulse Ox 98 01/30/24 08:53 Oxygen Delivery Method Room Air 01/30/24 08:53 BMI result Body Mass Index 32.6 Const General: no acute distress and alert Nutritional Appearance: not obese Orientation/consciousness: Other orientation findings ( oriented) HEENT Head: Yes atraumatic Eyes General: appearance normal, both eyes and all related structures Sclerae: sclerae normal EOM: EOMs intact bilaterally Neck Neck: Yes supple Lymphatic: no lymphadenopathy noted Resp Effort & Inspection: normal respiratory effort and no use of accessory muscles Auscultation: clear to auscultation bilaterally Cardio Rate: regular rate Rhythm: regular rhythm Heart sounds: no gallops, no murmurs and no rubs Skin General skin exam: other ( warm) Extrem General: No clubbing, No cyanosis and No edema Assessment & Plan Assessment & Plan (1) Asthma: Code(s): J45.909 - Unspecified asthma, uncomplicated Category: Medical Plan: Well controlled on current regimen of Symbicort and levalbuterol. Continue current regimen. (2) Pulmonary nodule: Code(s): R91.1 - Solitary pulmonary nodule Category: Medical Plan: Results of follow-up CT chest from December of 2023 reviewed, stable pulmonary nodule from 2015. No further imaging follow-up is required. (3) Environmental allergies: Code(s): Z91.09 - Other allergy status, other than to drugs and biological substances Category: Medical Plan: Approved for Xolair, however can not afford the co-payment and symptoms are better controlled at this time. Coding Level of Care Code Est Pt Level 4 (51493) Complex EM visit Add On G2211 Diagnoses Asthma J45.909 Pulmonary nodule R91.1 Environmental allergies Z91.09
== END 2024-01-30 09:15 | disposition home or self-care (01) ==
PROVIDERS: PCP Nurse Practitioner Family; Visit Provider Internal Medicine Pulmonary Disease
DX: J45.909 Unspecified asthma, uncomplicated (principal); R91.1 Solitary pulmonary nodule; Z91.09 Other allergy status, other than to drugs and biological substances
CPT/HCPCS: 99214

== ENCOUNTER → 2024-01-30 08:43 | Outpatient (BNVA) | payer OTHER, SELFPAY | PROVIDERS: PCP Family Medicine; Visit Provider Internal Medicine Pulmonary Disease ==

== ENCOUNTER 2024-03-06 16:03 | Emergency (ER) | payer OTHER, SELFPAY ==
--- NOTE | ~2024-03-06 | CT_ITS ---
CLINICAL HISTORY: syncope hit head CT head without contrast Comparison: None Findings: No intra-axial mass, midline shift, hydrocephalus, or acute hemorrhage. No significant atrophy-like change or white matter disease. Mucosal thickening of the bilateral maxillary sinus. The orbits are unremarkable. No skull fracture. IMPRESSION: 1. No acute intracranial findings This document has been electronically signed by: Haylie Vasquez MD on 03/06/2024 19:49:37
--- NOTE | ~2024-03-06 | CT_ITS ---
CLINICAL HISTORY: syncope hit face in shower CT maxillofacial without contrast Comparison: None Findings: No acute fractures. No dislocations. Temporomandibular joints are intact. There is fluid density within the bilateral maxillary sinus. Mild mucosal thickening of the sphenoid sinus. Orbital contents within normal limits. Visualized intracranial contents are within normal limits. No foreign bodies. IMPRESSION: No CT evidence of acute facial bone fracture. There is fluid density within the bilateral maxillary sinus likely representing sinusitis instead of hemorrhage. Clinical correlation is recommended. This document has been electronically signed by: Haylie Vasquez MD on 03/06/2024 19:59:45
--- NOTE | ~2024-03-06 | XR_ITS ---
CLINICAL HISTORY: fall, pain 3 view left foot Comparison: None Findings: No fractures or dislocations. No significant arthritic change or erosions. No ankle effusion. No radiopaque foreign body. IMPRESSION: 1. No acute findings. This document has been electronically signed by: Jona Figueroa MD on 03/06/2024 21:28:08
--- NOTE | ~2024-03-06 | XR_ITS ---
CLINICAL HISTORY: cough 2 view chest x-ray Comparison: CT/SR - CT CHEST WO IV CON - 01/02/24 10:26 EDT Findings: No consolidation or effusion. Normal size heart. No acute fracture. IMPRESSION: 1. No acute findings. This document has been electronically signed by: Jona Figueroa MD on 03/06/2024 21:35:37
--- NOTE | ~2024-03-06 | CT_ITS ---
CLINICAL HISTORY: syncope hit head CT cervical spine without contrast Comparison: None Findings: Vertebral alignment is within normal limits. No significant degenerative change. No acute fractures or dislocations. Visualized intracranial contents are unremarkable. Soft tissues of the neck are normal. Lung apices are clear. IMPRESSION: No acute findings. This document has been electronically signed by: Haylie Vasquez MD on 03/06/2024 19:48:26
[2024-03-06 16:06] VITALS: BP 191/102; PULSE 105; RESP 19; TEMP 36.6; O2SAT 99; BMI 32.8
--- NOTE | 2024-03-06 16:13 | ECG_ITS ---
Test Reason : SYNCOPY Blood Pressure : / mmHG Vent. Rate : 097 BPM Atrial Rate : 097 BPM P-R Int : 118 ms QRS Dur : 074 ms QT Int : 342 ms P-R-T Axes : 034 045 035 degrees QTc Int : 434 ms Normal sinus rhythm with sinus arrhythmia Normal ECG No previous ECGs available Referred By: Gonzalez Yan Electronically Signed By:KIMBERLI HERNANDEZ MD
--- NOTE | 2024-03-06 16:21 | ED.GENADULT ---
HPI - General Adult General Chief complaint: Syncope Stated complaint: passed out x2 facial pain Time Seen by Provider: 03/06/24 19:25 Source: patient, RN notes reviewed and old records reviewed Mode of arrival: ambulatory Limitations: no limitations History of Present Illness ED Provider: Kamille DEWEY narrative: 53-year-old female with past medical history significant for asthma, obesity, hyperlipidemia presents for evaluation of 2 syncopal episodes. She reports passing out twice last night. She reports the initial time happened when she was getting up off the toilet. She fell face 1st and hit her forehead and face on the ground. She reports that she passed out a 2nd time shortly thereafter again when she standing and she fell forward again striking her face. She complains of a headache. She did vomit 1 time after the 2nd fall She did not have any chest pain, shortness of breath, or palpitations. She reports that she has been sick with upper respiratory symptoms for the last few weeks and was diagnosed with RSV and bilateral ear infections 2 weeks ago. She has completed a course of amoxicillin as well as azithromycin over last 2 weeks The patient also reports injuring her left foot when she fell last night That she was given prednisone and took her 1st dose yesterday. She reports a history of bad reactions to prednisone causing agitation and difficulty sleeping. She then took trazodone to help with the sleep that she anticipated from using prednisone. She has never taking these 2 medications together in the past and believes this may be why she passed out Related Data Home Medications ?Medication ?Instructions ?Recorded ?Confirmed eletriptan 40 mg tablet 40 mg PO DAILY MRX1 PRN Migraine 03/24/21 08/08/22 Headache simvastatin 40 mg tablet 40 mg PO BEDTIME 03/24/21 08/08/22 cyanocobalamin (vitamin B-12) 1,000 mcg PO DAILY 12/09/21 08/08/22 1,000 mcg tablet gabapentin 100 mg capsule 100 - 300 mg PO BEDTIME 12/09/21 03/20/22 norethindrone 1 mg-ethinyl 1 tab PO DAILY 12/09/21 08/08/22 estradiol 10 mcg (24)-iron 10 mcg(2) tablet (Lo Loestrin Fe) Previous Rx's ?Medication ?Instructions ?Recorded acetaminophen 500 mg tablet 1,000 mg (2 x 500 mg) PO QID PRN 01/19/22 pain #30 tabs cyclobenzaprine 5 mg tablet 5 mg PO TID PRN muscle spasm #10 01/19/22 tabs riboflavin (vitamin B2) 400 mg 400 mg PO QAM #90 tabs 07/04/22 tablet levalbuterol tartrate 45 2 puff inhalation Q4-6H PRN 08/15/22 mcg/actuation aerosol inhaler Shortness Of Breath #3 ea cyclobenzaprine 10 mg tablet 10 mg PO TID PRN muscle spasm #14 11/25/22 tabs budesonide-formoterol HFA 160 2 inh inhalation BID 90 days #30.6 01/30/24 mcg-4.5 mcg/actuation aerosol grams inhaler Allergies Allergy/AdvReac Type Severity Reaction Status Date / Time pseudoephedrine Allergy Palpitation Verified 03/06/24 16:09 [From Sudafed] s SEASONAL ALLERGIES Allergy Mild SNEEZING Uncoded 03/06/24 16:09 RUNNY NOSE Review of Systems Constitutional: Constitutional: Denies body ache(s), Denies chills, Denies fever(s) and Reports headache(s) Eyes: Eyes: Denies blurry vision ENT: Denies vertigo, Denies dizziness and Reports headache(s) Cardiovascular: Cardiovascular: Denies chest pain, Denies chest pain at rest, Reports syncope, Denies rapid heart rate and Denies dyspnea Respiratory: Respiratory: Denies cough and Denies dyspnea Gastrointestinal: Gastrointestinal: Denies abdominal pain and Denies vomiting Musculoskeletal: Musculoskeletal: Denies back pain and Reports arthralgias Integumentary/Breasts: Skin/Breast: Denies rash Neurologic: Denies vertigo, Denies dizziness, Reports syncope and Reports headache(s) [facility] Past Medical History Medical History Insomnia Migraines Irritable bowel syndrome Lumbar spondylosis Asthma Hyperlipidemia Obesity Allergic rhinitis Surgical History H/O dilation and curettage Hx of cystoscopy H/O wrist surgery Family History Family History Mother Thyroid disease CAD (coronary artery disease) Father Stroke Angina at rest Maternal Grandmother Breast cancer Recurrent strokes Social History Social History Household Members: Family Housing: House Do you presently have visiting nurse or other home services: No Alcohol intake: current Alcohol intake frequency: a few times a month Patient Tobacco Use Status: Never used Tobacco Second Hand Smoke Exposure: No service: No Physical Exam ED Vital Signs: Vital Signs - 24 hr 03/06/24 16:06 03/06/24 18:48 03/06/24 18:49 Temperature 98 F Pulse Rate 105 H 86 91 Respiratory Rate 19 Blood Pressure 191/102 H 148/96 H 159/112 H Pulse Oximetry 99 Oxygen Delivery Method Room Air 03/06/24 18:49 03/06/24 18:51 03/06/24 20:00 Temperature 98.3 F 98.4 F Pulse Rate 98 92 89 Respiratory Rate 16 16 Blood Pressure 136/104 H 141/108 H 141/107 H Pulse Oximetry 97 95 Oxygen Delivery Method Room Air Room Air 03/06/24 22:19 Temperature 97.4 F Pulse Rate 94 Respiratory Rate 18 Blood Pressure 153/103 H Pulse Oximetry 97 Oxygen Delivery Method Room Air BMI result Body Mass Index 32.8 Const General: healthy appearing, comfortable, no acute distress, alert and awake Nutritional Appearance: well nourished Orientation/consciousness: patient oriented x3 HENMT Other: No wounds or lacerations noted Head: Yes contusion (To the bridge of the nose) Eyes Eyelids: Yes eyelids normal Conjunctivae: conjunctivae normal Sclerae: sclerae normal Corneas: corneas normal Pupils: Equal, round and reactive pupils present EOM: EOMs intact bilaterally Neck Neck: Yes full ROM Resp Effort & Inspection: normal respiratory effort, able to speak in complete sentences and not labored Cardio Rate: regular rate Rhythm: regular rhythm GI Inspection: No distended Palpation (GI): Soft to palpation, not firm, nontender, no guarding and not rigid Skin General skin exam: elasticity normal Neuro General: patient oriented x3 Cranial nerves: Yes CN's II-XII intact bilaterally, Yes Equal, round and reactive pupils present and Yes Bilaterally intact EOM present Cognition (Neuro): normal cognition Extrem Other: Patient has mild edema to the left foot and a small amount of ecchymosis to the base of the left 3rd MTP joint. No ankle tenderness or edema. Course Course Course Narrative: RME: 53 yold female presents to ED for 2 syncopal episodes that occurred last night. Patient was found face down in the shower by her . Patient does not know if it is due to her taking trazodone last night. Patient denies any fever, chills, dizziness or chest pain. Labs, EKG, orthostatics, head CT cervical spine patient's CT ordered. Medical Decision Making Medical Decision Making [facility] Narrative: 53-year-old female presents for evaluation of 2 separate syncopal episodes last night. She did not have any chest pain or shortness of breath. Patient had workup that included labs, her white count was elevated at 14.1 which is likely related to her current prednisone use. She has no significant anemia, there is no significant left shift. Chemistries without any concerning abnormalities, the patient's troponin was 6.2. She has no chest pain in her syncope was last night. Her EKG is a normal sinus rhythm with a rate of [address] segment changes. She had a CT scan of the face, brain, cervical spine all of which did not show any traumatic injuries. She does have fluid in the sinuses which is likely her sinusitis as she has been experiencing. X-ray of the left foot shows no fracture,. X-ray of her chest shows no pneumonia. She rules out for ACS, well's criteria score is 0, less likely be PE as the cause of her syncope. Orthostatics are negative. Her syncope may have been vasovagal in nature versus polypharmacy from the tramadol and prednisone that she has known bad reactions to. I did encourage her to follow-up with cardiology if her symptoms persist or worsen Differential Diagnosis Differential Diagnoses: The differential diagnosis associated with the presentation includes Syncope Vasovagal syncope Orthostasis ACS less likely PE less likely Concussion Intracranial hemorrhage Cervical fracture Lab Data [facility] Lab Attestation statement: I reviewed the patient's lab results. As above 03/06/24 16:45 03/06/24 16:45 Labs: Lab Results 03/06/24 Range/Units 16:45 WBC 14.1 H (4.8-10.8) X10*3/uL RBC 4.70 (4.20-5.50) X10*6/uL Hgb 13.7 (12.0-16.0) g/dl Hct 40.6 (37.0-47.0) % MCV 86.4 (80.0-98.0) fL MCH 29.1 (27.0-33.0) pg MCHC 33.7 (31.0-35.0) g/dl RDW 13.3 (11.0-16.0) % Plt Count 370 (160-400) X10*3/uL MPV 8.8 L (9.4-12.3) fL Immature Gran % (Auto) Cancelled Neut % (Auto) Cancelled Lymph % (Auto) Cancelled [place] % (Auto) Cancelled Eos % (Auto) Cancelled Baso % (Auto) Cancelled Lymph # (Auto) Cancelled [place] # (Auto) Cancelled Eos # (Auto) Cancelled Baso # (Auto) Cancelled Abs Immat Gran (auto) Cancelled Absolute Neuts (auto) Cancelled Absolute Nucleated RBC 0.000 (0.0-0.012) X10*3/uL Nucleated RBC % (auto) 0.0 (0.0-0.2) /100WBC Neutrophils % (Manual) 46 (45-73) % Band Neutrophils % 3 (3-5) % Lymphocytes % (Manual) 29 (20-40) % Atypical Lymphs % (Man) 15 H (0-6) % Monocytes % (Manual) 5 (2-11) % Basophils % (Manual) 2 (0-2) % Abs Neuts (Manual) 6.9 (2.0-8.3) X10*3/uL Lymphocytes # (Manual) 4.1 (1.2-4.9) X10*3/uL Atyp Lymphs # (Manual) 2.1 x10*3/uL Monocytes # (Manual) 0.7 (0.1-1.2) X10*3/uL Basophils # (Manual) 0.3 H (0.0-0.2) X10*3/uL Platelet Estimate NORMAL (NORMAL) Plt Morphology Comment NORMAL RBC Morphology NORMAL Smear Tech's Comments MANUAL DIFF PT 9.9 L (10.9-12.4) SEC INR 0.9 (0.9-1.1) APTT 24.3 L (26.0-36.8) SEC Sodium 140 (135-145) mmol/L Potassium 4.3 (3.3-5.1) mmol/L Chloride 107 (96-108) mmol/L Carbon Dioxide 26 (22-29) mmol/L Anion Gap 11 L (12-20) BUN 18 H (9-16) mg/dL Creatinine 0.77 (0.5-1.4) mg/dL Estim Creat Clear Calc 78.8 Estimated GFR > 60 Random Glucose 106 (60-115) mg/dL Calcium 8.7 D (8.4-10.2) mg/dL Total Bilirubin 0.4 (0.0-1.0) mg/dL AST 17 (5-31) U/L ALT 23 (0-31) U/L Alkaline Phosphatase 57 (39-117) U/L Troponin I High Sens 6.2 (<3.5-17.0) ng/L Total Protein 7.1 (6.5-8.0) g/dL Albumin 3.9 (3.5-5.0) g/dL Beta HCG, Quant 3 mIU/mL Influenza Type A (PCR) NEGATIVE (Negative) Influenza Type B (PCR) NEGATIVE (Negative) RSV RNA Qual (PCR) NEGATIVE (Negative) SARS-CoV-2 RNA (RT-PCR) NEGATIVE (Negative) Independent Interpretation I performed an independent interpretation of an: EKG (As above) Radiology Impression Discussion of test interpretation with radiology: I have reviewed the radiologist's reading. Radiologist Impression: Findings: No acute fractures. No dislocations. Temporomandibular joints are intact. There is fluid density within the bilateral maxillary sinus. Mild mucosal thickening of the sphenoid sinus. Orbital contents within normal limits. Visualized intracranial contents are within normal limits. No foreign bodies. IMPRESSION: No CT evidence of acute facial bone fracture. There is fluid density within the bilateral maxillary sinus likely representing sinusitis instead of hemorrhage. Clinical correlation is recommended. This document has been electronically signed by: Haylie Vasquez MD on 03/06/2024 19:59:45 Findings: No intra-axial mass, midline shift, hydrocephalus, or acute hemorrhage. No significant atrophy-like change or white matter disease. Mucosal thickening of the bilateral maxillary sinus. The orbits are unremarkable. No skull fracture. IMPRESSION: 1. No acute intracranial findings This document has been electronically signed by: Haylie Vasquez MD on 03/06/2024 19:49:37 Findings: Vertebral alignment is within normal limits. No significant degenerative change. No acute fractures or dislocations. Visualized intracranial contents are unremarkable. Soft tissues of the neck are normal. Lung apices are clear. IMPRESSION: No acute findings. This document has been electronically signed by: Haylie Vasquez MD on 03/06/2024 19:48:26 Findings: No consolidation or effusion. Normal size heart. No acute fracture. IMPRESSION: 1. No acute findings. This document has been electronically signed by: Jona Figueroa MD on 03/06/2024 21:35:37 Findings: No fractures or dislocations. No significant arthritic change or erosions. No ankle effusion. No radiopaque foreign body. IMPRESSION: 1. No acute findings. This document has been electronically signed by: Jona Figueroa MD on 03/06/2024 21:28:08 Discharge Plan Discharge Clinical Impression: Syncope, Chronic frontal sinusitis Patient Disposition: Home, Self-Care Instructions: Sinusitis (ED), Syncope (ED) Additional Instructions: Your workup in the ER today was reassuring. You did not break any bones in your face. You do have fluid in her sinuses that is likely chronic sinusitis. I do not think you need anymore antibiotics as the amoxicillin and azithromycin you were recently on she had appropriately treat that I recommend that you take either Zyrtec, Claritin, Roselia without the add a decongestant to help with the sinusitis symptoms If you have any other syncopal episodes or feeling like you are going to pass out, I recommend that you follow-up with cardiology Hydrate well Follow-up with your primary doctor, return for new or worsening symptoms Prescriptions: No Action riboflavin (vitamin B2) 400 mg tablet 400 mg PO QAM Qty: 90 3RF levalbuterol tartrate 45 mcg/actuation HFA aerosol inhaler 2 puff inhalation Q4-6H PRN (Reason: Shortness Of Breath) Qty: 3 1RF Lo Loestrin Fe 1 mg-10 mcg (24)/10 mcg (2) tablet 1 tab PO DAILY cyanocobalamin (vitamin B-12) 1,000 mcg Tablet 1,000 mcg PO DAILY gabapentin 100 mg Capsule 100 - 300 mg PO BEDTIME acetaminophen 500 mg tablet 1,000 mg PO QID PRN (Reason: pain) Qty: 30 0RF cyclobenzaprine 5 mg tablet 5 mg PO TID PRN (Reason: muscle spasm) Qty: 10 0RF Rx Instructions: This medication may cause drowsiness, no driving for 8 hours after taking cyclobenzaprine 10 mg tablet 10 mg PO TID PRN (Reason: muscle spasm) Qty: 14 0RF simvastatin 40 mg tablet 40 mg PO BEDTIME eletriptan 40 mg tablet 40 mg PO DAILY MRX1 PRN (Reason: Migraine Headache) Rx Instructions: do not exceed 2 doses per 24 hrs budesonide-formoterol 160-4.5 mcg/actuation HFA aerosol inhaler 2 inh inhalation BID 90 Days Qty: 30.6 3RF Stand Alone Forms: Work/School Release Interventions: ED Discharge Assessment Last Done: 03/06/24 22:19 Discharge Date/Time: 03/06/24 21:46 Print Language: Guinean
[2024-03-06 16:49] LABS: Hematocrit 40.6 % (37.0-47.0); Hemoglobin 13.7 g/dl (12.0-16.0); Mean Corpuscular HGB Conc 33.7 g/dl (31.0-35.0); Mean Corpuscular Hemoglobin 29.1 pg (27.0-33.0); Mean Corpuscular Volume 86.4 fL (80.0-98.0); Mean Platelet Volume 8.8 fL (9.4-12.3); Platelet Count 370 X10*3/uL (160-400); Red Cell Distribution Width 13.3 % (11.0-16.0); White Blood Count 14.1 X10*3/uL (4.8-10.8)
[2024-03-06 16:55] LABS: INTERNATIONAL NORM RATIO 0.9 (0.9-1.1); Prothrombin Time 9.9 SEC (10.9-12.4)
[2024-03-06 16:58] LABS: Partial Thromboplastin Time 24.3 SEC (26.0-36.8)
[2024-03-06 17:07] LABS: Alanine Aminotransferase 23 U/L (0-31); Albumin Level 3.9 g/dL (3.5-5.0); Alkaline Phosphatase 57 U/L (39-117); Anion Gap 11 (12-20); Aspartate Amino Transferase 17 U/L (5-31); Bilirubin Total 0.4 mg/dL (0.0-1.0); Blood Urea Nitrogen 18 mg/dL (9-16); Calcium 8.7 mg/dL (8.4-10.2); Carbon Dioxide 26 mmol/L (22-29); Chloride 107 mmol/L (96-108); Creatinine Clr Calc Pharmacy 78.8; Estimated Glomerular Filt Rate > 60; Glucose Random 106 mg/dL (60-115); Potassium 4.3 mmol/L (3.3-5.1); Sodium 140 mmol/L (135-145); Total Protein 7.1 g/dL (6.5-8.0)
[2024-03-06 17:14] LABS: HCG Quantitative 3 mIU/mL; Troponin-I High Sensitivity 6.2 ng/L (<3.5-17.0)
[2024-03-06 17:24] LABS: SLIDE REVIEW MANUAL DIFF
[2024-03-06 17:25] LABS: Atypical Lymph Absolute Manual 2.1 x10*3/uL; Atypical Lymphs Percent Manual 15 % (0-6); Band Neutrophils Percent 3 % (3-5); Basophils Abs Manual 0.3 X10*3/uL (0.0-0.2); Basophils Percent Manual 2 % (0-2); Lymphocytes Absolute Manual 4.1 X10*3/uL (1.2-4.9); Lymphocytes Percent Manual 29 % (20-40); Monocytes Absolute Manual 0.7 X10*3/uL (0.1-1.2); Monocytes Percent Manual 5 % (2-11); Neutrophils Absolute Manual 6.9 X10*3/uL (2.0-8.3); Neutrophils Percent Manual 46 % (45-73)
[2024-03-06 17:26] LABS: Platelet Estimate NORMAL (NORMAL); Platelet Morphology Comment NORMAL; RBC Morphology NORMAL
[2024-03-06 17:51] LABS: Influenza A PCR NEGATIVE (Negative); Influenza B PCR NEGATIVE (Negative); Resp Syncy Virus RNA Qual PCR NEGATIVE (Negative); SARS COV2 PCR INHOUSE NEGATIVE (Negative)
[2024-03-06 18:48] VITALS: BP 148/96; PULSE 86
[2024-03-06 18:49] VITALS: BP 136/104; BP 159/112; PULSE 91; PULSE 98
[2024-03-06 18:51] VITALS: BP 141/108; PULSE 92; RESP 16; TEMP 36.8; O2SAT 97
[2024-03-06 20:00] VITALS: BP 141/107; PULSE 89; RESP 16; TEMP 36.9; O2SAT 95
[2024-03-06 22:19] VITALS: BP 153/103; PULSE 94; RESP 18; TEMP 36.3; O2SAT 97
== END 2024-03-06 21:46 | disposition home or self-care (01) ==
PROVIDERS: Physician Assistant; Emergency Provider Emergency Medicine; PCP Nurse Practitioner Family
DX: J32.1 Chronic frontal sinusitis (principal); R55 Syncope and collapse; I49.8 Other specified cardiac arrhythmias; R51.9 Headache, unspecified; R10.2 Pelvic and perineal pain; M79.672 Pain in left foot; M54.2 Cervicalgia; R05.9 Cough, unspecified; Z79.899 Other long term (current) drug therapy; Z03.818 Encounter for observation for suspected exposure to other biological agents ruled out
CPT/HCPCS: 0241U; 36415; 70450; 70486; 71046; 72125; 73630; 80053; 84484; 84702; 85007; 85025; 85027; 85610; 85730; 93005; 99284; 99285

== ENCOUNTER → 2024-03-06 16:13 | Outpatient (BNV) | payer OTHER, SELFPAY | PROVIDERS: Emergency Provider Emergency Medicine; PCP Nurse Practitioner Family; Visit Provider Internal Medicine Cardiovascular Disease | DX: R55 Syncope and collapse (principal) | CPT/HCPCS: 93010 ==

== ENCOUNTER → 2024-03-06 16:15 | Outpatient (BNV) | payer OTHER, SELFPAY | PROVIDERS: PCP Nurse Practitioner Family; Visit Provider Nuclear Medicine | DX: R55 Syncope and collapse (principal); R05.9 Cough, unspecified; M79.672 Pain in left foot | CPT/HCPCS: 70450; 70486; 71046; 72125; 73630 ==

== ENCOUNTER 2024-12-30 15:20 | Outpatient (AMB) | payer BC, SELFPAY ==
--- OUTSIDE RECORDS SUMMARY | 2023-10-10 06:00 | XMS_ITS ---
Author Organization [facility] [address] Address [address] [place] [address] Care Team Providers Care Change Control Coordinator Name Role Phone JAMEL DUFFY Unavailable [phone] Encounters Encounter Location Date Provider Diagnosis [facility] [address] [place] [address] 10/10/2023 JAMEL DUFFY Plan Of Treatment No Information Progress Notes * Carmen ROEDOB:1970 ( 54 yo F)Acc No.[id number]:10/10/2023 Patient: Carmen AMARO Provider: Sarah RUANO PA-C :1970 A ge:53 Y S ex:Female Date:10/10/2023 [facility] [id number] Subjective: * Chief Complaints: * * Medical History: Objective: * Vitals: Assessment: Plan: * Treatment: * Images: Billing Information: * Visit Code: * Procedure Codes: * Electronic signature of GAVIN DUFFY PA-C on 12/30/2024 at 07:44 PM EDT Sign off status: Pending * Provider: Sarah RUANO PA-C Date: 0 10/10/2023 Generated for Malcolm monsivais/Heather/eTransmitting on: 1 07:44 PM EDT
--- OUTSIDE RECORDS SUMMARY | 2024-04-24 05:30 | XMS_ITS ---
Author Organization [facility] [address] Address [address] [place] [address] Care Team Providers Care Director Career Services Name Role Phone JAMEL DUFFY Unavailable [phone] MELANIE ESPANA Unavailable [phone] Encounters Encounter Location Date Provider Diagnosis [facility] [id number] [facility] [address] [address] 04/24/2024 MELANIE ESPANA Plan Of Treatment No Information Progress Notes * Carmen ROEDOB:1970 ( 54 yo F)Acc No.[id number]:04/24/2024 CPE Patient: Carmen AMARO Provider: Karie Espana MD :1970 A ge:53 Y S ex:Female Date:04/24/2024 Address:[address] [place], [place] [id number] Subjective: * Chief Complaints: * * Medical History: Objective: * Vitals: Assessment: Plan: * Treatment: * Images: Billing Information: * Visit Code: * Procedure Codes: Care Plan Details* * Electronic signature of ROSA ISELA ESPANA MD on 12/30/2024 at 07:44 PM EDT Sign off status: Pending * Provider: Karie Espana MD Date: 0 04/24/2024 Generated for Printi ng/Faleahg/eTransmitting on: 1 07:44 PM EDT
--- OUTSIDE RECORDS SUMMARY | 2024-05-09 06:15 | XMS_ITS ---
Author Organization [facility] [address] Address [address] [place] [address] Care Team Providers Care Bevel Gear Generator Operator Name Role Phone JAMEL DUFFY Unavailable [phone] REASON FOR VISIT lab review Encounters Encounter Location Date Provider Diagnosis [facility] [address] [place] [address] 05/09/2024 JAMEL DUFFY Plan Of Treatment No Information Progress Notes * Carmen ROEDOB:1970 ( 54 yo F)Acc No.[id number]:05/09/2024 Patient: Carmen AMARO Provider: Sarah RUANO PA-C :1970 A ge:53 Y S ex:Female Date:05/09/2024 Address:[address] [facility] Subjective: * Chief Complaints: * 1 . Lab review. * Medical History: Objective: * Vitals: Assessment: Plan: * Treatment: * Images: Billing Information: * Visit Code: * Procedure Codes: * Electronic signature of GAVIN DUFFY PA-C on 12/30/2024 at 07:44 PM EDT Sign off status: Pending * Provider: Sarah RUANO PA-C Date: 0 05/09/2024 Generated for Bethi ng/Faleahg/eTransmitting on: 1 07:44 PM EDT
--- OUTSIDE RECORDS SUMMARY | 2024-08-26 07:45 | XMS_ITS ---
Author Organization [facility] [address] Address [address] [place] [address] Care Team Providers Care New Accounts Banking Representative Name Role Phone JAMEL DUFFY Unavailable [phone] Encounters Encounter Location Date Provider Diagnosis [facility] [address] [place] [address] 08/26/2024 JAMEL DUFFY Plan Of Treatment No Information Progress Notes * Carmen ROEDOB:1970 ( 54 yo F)Acc No.[id number]:08/26/2024 Patient: Carmne AMARO Provider: Sarah RUANO PA-C :1970 A ge:54 Y S ex:Female Date:08/26/2024 [facility] [facility] Subjective: * Chief Complaints: * * Medical History: Objective: * Vitals: Assessment: Plan: * Treatment: * Images: Billing Information: * Visit Code: * Procedure Codes: * Electronic signature of GAVIN DUFFY PA-C on 12/30/2024 at 07:44 PM EDT Sign off status: Pending * Provider: Sarah RUANO PA-C Date: 0 08/26/2024 Generated for Malcolm monsivais/Heather/eTransmitting on: 1 07:44 PM EDT
--- NOTE | 2024-12-30 15:21 | A.OFFVIS_ITS ---
Vital Signs 12/30/24 15:24 Height 5 ft Weight 167 lb BMI 32.6 BP 142/96 H Blood Pressure Location Lt brachial Position Sitting Pulse 108 H Pulse Source Pulse Oximeter Pulse Oximetry (%) 98 Oxygen Delivery Method Room Air Intake Visit Reasons: sob, cough Allergies pseudoephedrine (From Sudafed) Allergy (Verified 12/30/24 15:28) Palpitations SEASONAL ALLERGIES Allergy (Mild, Uncoded 03/06/24 16:09) SNEEZING RUNNY NOSE HPI HPI sob, cough: Details: 54-year-old lady now followed for moderate to severe persistent asthma and environmental allergies. She has been using Symbicort and levalbuterol with good baseline control of her symptoms. She was approved for Xolair, however she cannot afford it. Now she has an ongoing exacerbation after recent upper respiratory infection still with significant cough, mild sputum production, and some wheezing. [facility] Medical History Insomnia Migraines Irritable bowel syndrome Lumbar spondylosis Asthma Hyperlipidemia Obesity Allergic rhinitis Surgical History H/O dilation and curettage Hx of cystoscopy H/O wrist surgery Family History Mother Thyroid disease CAD (coronary artery disease) Father Stroke Angina at rest Maternal Grandmother Breast cancer Recurrent strokes Social History Household Members: Family Housing: House Do you presently have visiting nurse or other home services: No Alcohol intake: current Alcohol intake frequency: a few times a month Patient Tobacco Use Status: Never used Tobacco Second Hand Smoke Exposure: No service: No Review of Systems Const Denies daytime sleepiness, Denies excessive sweating, Denies fatigue, Denies fever(s), Denies lethargy, Denies malaise, Denies night sweats, Denies snoring and Denies weight loss Eyes Denies blurry vision and Denies itchy eyes ENT Denies nasal congestion, Denies post nasal drip, Denies sinus pain, Denies sinus pressure and Denies other ( Thrush) Card Denies chest pain, Denies pedal edema, Denies dyspnea, Denies orthopnea and Denies paroxysmal nocturnal dyspnea Resp Reports cough, Denies hemoptysis, Denies excessive phlegm production, Denies dyspnea, Denies snoring and Denies wheezing GI Denies abdominal pain and Denies heartburn Musc Denies myalgias, Denies arthralgias and Denies joint swelling Skin/Breast Denies rash Neuro Denies memory loss and Denies seizure-like activity Psych Denies abnormal sleep pattern, Denies anxiety and Denies memory loss Endo Denies excessive sweating, Denies fatigue and Denies heat intolerance Melvin/Lymph Denies easy bruising Aller/Immun Denies itchy eyes, Denies seasonal rhinorrhea and Denies wheezing Physical Exam Vital Signs: Last Vital Signs Pulse 108 H 12/30/24 15:24 BP 142/96 H 12/30/24 15:24 Pulse Ox 98 12/30/24 15:24 Oxygen Delivery Method Room Air 12/30/24 15:24 BMI result Body Mass Index 32.6 Const General: no acute distress and alert Nutritional Appearance: not obese Orientation/consciousness: Other orientation findings ( oriented) HEENT Head: Yes atraumatic Eyes General: appearance normal, both eyes and all related structures Sclerae: sclerae normal EOM: EOMs intact bilaterally Neck Neck: Yes supple Lymphatic: no lymphadenopathy noted Resp Effort & Inspection: normal respiratory effort and no use of accessory muscles Auscultation: clear to auscultation bilaterally Cardio Rate: regular rate Rhythm: regular rhythm Heart sounds: no gallops, no murmurs and no rubs Skin General skin exam: other ( warm) Extrem General: No clubbing, No cyanosis and No edema Assessment & Plan Assessment & Plan (1) Asthma: Code(s): J45.909 - Unspecified asthma, uncomplicated Category: Medical Plan: Baseline well controlled on Symbicort and levalbuterol. Now with an acute exacerbation, will treat with a course of Levaquin and dexamethasone. Also, codeine syrup symptomatic cough relief. (2) Environmental allergies: Code(s): Z91.09 - Other allergy status, other than to drugs and biological substances Category: Medical Plan: Approved for Xolair, however at this time does not want to proceed secondary to significant cost. Medications: New dexamethasone 4 mg PO DAILY 5 tabs 0RF levofloxacin 750 mg PO DAILY 7 tabs 0RF Refilled levalbuterol tartrate 45 mcg/actuation 2 puffs inhalation Q4-6H PRN 3 ea 6RF Shortness Of Breath Coding Level of Care Code Est Pt Level 4 (24561) Diagnoses Asthma J45.909 Environmental allergies Z91.09
[2024-12-30 15:24] VITALS: BP 142/96; PULSE 108; O2SAT 98; BMI 32.6
--- OUTSIDE RECORDS SUMMARY | 2024-12-30 19:45 | XMS_ITS | Clinical Summary ---
Author Organization [facility] Address [address] [place] [address] Care Team Providers Care Executive Vice President Name Role Phone Fahad Dai RD Primary Care Provider Source Comments PLEASE NOTE, if this patient is a minor, it may be UNLAWFUL to discuss sensitive information that is contained in these records (such as FAMILY PLANNING, MENTAL HEALTH or SUBSTANCE ABUSE) with the minor patient's parent or other person without the patient's specific authorization.[facility] Social History Tobacco Use Types Packs/Day Years Used Date Smoking Tobacco: Never Assessed Comments Unknown Sex and Gender Information Value Date Recorded Sex Assigned at Not on file Legal Sex Female 6:20 AM PDT Gender Identity Not on file Sexual Orientation Not on file Last Filed Vital Signs Vital Sign Reading Time Taken Comments Blood Pressure - - Pulse - - Temperature - - Respiratory Rate - - Oxygen Saturation - - Inhaled Oxygen Concentration - - Weight 77.1 kg (170 lb) 12/10/2014 10:04 AM EDT Height 154.9 cm (5' 1 ) 12/10/2014 10:04 AM EDT Body Mass Index 32.12 12/10/2014 10:04 AM EDT Plan of Treatment Not on file Insurance [place]/ [place] Care Teams Executive Vice President Relationship Specialty Start Date End Date Fahad Dai [id number] [place] [address] PCP - General Nutrition 09/30/14
--- OUTSIDE RECORDS SUMMARY | 2024-12-30 19:45 | XMS_ITS | Patient Health Record ---
Author Organization [facility] Address [address] [place] [address] Care Team Providers Care Air Conditioning Mechanic Industrial Name Role Phone Gm Mcfadden Unavailable [phone] Reason For Referral No Information Plan Of Treatment No Information
--- OUTSIDE RECORDS SUMMARY | 2024-12-30 19:45 | XMS_ITS | Patient Health Record ---
[facility] Organization [facility] Address [address] [place] [address] Care Team Providers Care Competitive Intelligence Manager Name Role Phone JAMEL DUFFY Unavailable [phone] ESPANAMELANIE BLACK Unavailable [phone] ANTHONY KAY Unavailable [phone] Allergies Allergen (clinical drug ingredient) Drug/Non Drug Allergy documented on EMR Reaction Allergy Type Onset Date Status prednisone Prednisone palpitations Drug Allergy Ac tive pseudoephedrine Pseudoephedrine Unknown Drug Allergy Active Results Component Value Reference Range Notes Hemoglobin [id number] Reviewed date:04/28/2024 01:02:40 PM Interpretation: Performing Lab:[facility], [address] [place] [address], Phone - [phone], Director - Latasha Notes/Report: Hemoglobin A1c 5.3 4.8-5.6 % . Prediabetes: 5.7 - 6.4 Diabetes: >6.4 Glycemic control for adults with diabetes: <7.0 Vitamin [id number] Reviewed date:04/28/2024 01:02:40 PM Interpretation: Performing Lab:[facility], [address] [place] [address], Phone - [phone], Director - Latasha Notes/Report: Vitamin B12 8420 304-4649 pg/mL Thyroxine (T4) Free, Direct- [id number] Reviewed date:04/28/2024 01:02:40 PM Interpretation: Performing Lab:[facility], [address] [facility], Phone - [phone], Director - Latasha Notes/Report: T4,Free(Direct) 1.00 0.82-1.77 ng/dL Urinalysis, Complete-[id number] Reviewed date:04/28/2024 01:02:40 PM Interpretation: Performing Lab:[facility], Phone - [phone], Director - MDJodry Notes/Report: Specific [place] 1.026 1.005-1.030 pH 5.5 5.0-7.5 Urine-Color Yellow Yellow Appearance Cloudy Clear WBC Esterase Negative Negative Protein Negative Negative/Trace Glucose Negative Negative Ketones Negative Negative Occult Blood Negative Negative Bilirubin Negative Negative Urobilinogen,Semi-Qn 0.2 0.2-1.0 mg/dL Nitrite, Urine Negative Negative Microscopic Examination Micr oscopic follows if indicated. Microscopic Examination See below: Micr oscopic was indicated and was performed. WBC 0-5 0 - 5 /hpf RBC None seen 0 - 2 /hpf Epithelial Cells (non renal) 0-10 0 - 10 /hpf Casts None seen None seen /lpf Bacteria None seen None seen/Few TSH-[id number] Reviewed date:04/28/2024 01:02:40 PM Interpretation: Performing Lab:[facility], Phone - [phone], Director - Latasha Notes/Report: TSH 1.000 0.450-4.500 uIU/mL Insulin-[id number] Reviewed date:04/28/2024 01:02:40 PM Interpretation: Performing Lab:[facility], Phone - [phone], Director - Cameliay Notes/Report: Insulin 13.8 2.6-24.9 uIU/mL CBC With Differential/Platel et-[id number] Reviewed date:04/28/2024 01:02:40 PM Interpretation: Performing Lab:[facility], Phone - [phone], Director - Modry Notes/Report: WBC 9.9 3.4-10.8 x10E3/uL RBC 5.09 3.77-5.28 x10E6/uL Hemoglobin 15.0 11.1-15.9 g/dL Hematocrit 46.2 34.0-46.6 % MCV 91 79-97 fL MCH 29.5 26.6-33.0 pg MCHC 32.5 31.5-35.7 g/dL RDW 13.2 11.7-15.4 % Platelets 382 150-450 x10E3/uL Neutrophils 64 Not Estab. % Lymphs 30 Not Estab. % Monocytes 5 Not Estab. % Eos 1 Not Estab. % Basos 0 Not Estab. % Neutrophils (Absolute) 6.3 1.4-7.0 x10E3/uL Lymphs (Absolute) 2.9 0.7-3.1 x10E3/uL Monocytes(Absolute) 0.5 0.1-0.9 x10E3/uL Eos (Absolute) 0.1 0.0-0.4 x10E3/uL Baso (Absolute) 0.0 0.0-0.2 x10E3/uL Immature Granulocytes 0 Not Estab. % Immature Grans (Abs) 0.0 0.0-0.1 x10E3/uL Triiodothyronine (T3), Free- [id number] Reviewed date:04/28/2024 01:02:40 PM Interpretation: Performing Lab:[facility] [place], [address] [place] [address], Phone - [phone], Director - MDJodry Notes/Report: Triiodothyronine (T3), Free 3.0 2.0-4.4 pg/mL Vitamin D, 05-[id number] Reviewed date:04/28/2024 01:02:40 PM Interpretation: Performing Lab:[facility], [address] [place] [address], Phone - [phone], Director - MDJodry Notes/Report: Vitamin D, 25-Hydroxy 54.1 30.0-100.0 ng/mL Vitamin D deficiency has been defined by the [employer] of [employer] and an Endocrine Society practice guideline as a level of serum 25-OH vitamin D less than 20 ng/mL (1,2). The Endocrine Society went on to further define vitamin D insufficiency as a level between 21 and 29 ng/mL (2). 1. IOM ([employer] of Medicine). 2010. Dietary reference intakes for calcium and D. [place]: The National Academies Press. 2. Elan MF, Juan Carlos [place], Franc SANCHEZ, et al. Evaluation, treatment, and prevention of vitamin D deficiency: an Endocrine Society clinical practice guideline. JCEM. 2010; 96(7):0971-30. Lipid Panel-[id number] Reviewed date:04/28/2024 01:02:40 PM Interpretation: Performing Lab:[facility] [place], [address] [facility], [place], Phone - [phone], Director - Latasha Notes/Report: Cholesterol, Total 277 100-199 mg/dL Triglycerides 183 0-149 mg/dL HDL Cholesterol 65 >39 mg/dL VLDL Cholesterol Eb 34 5-40 mg/dL LDL Chol Calc (RUST) 178 0-99 mg/dL Comp. Metabolic Panel (14)-3 Reviewed date:04/28/2024 01:02:40 PM Interpretation: Performing [facility] [place], [address] [facility], [place], Phone - [phone], Director - Latasha Notes/Report: Glucose 88 70-99 mg/dL BUN 16 6-24 mg/dL Creatinine 0.73 0.57-1.00 mg/dL eGFR 100 >59 mL/min/1.73 BUN/Creatinine Ratio 22 9-23 Sodium 140 134-144 mmol/L Potassium 4.7 3.5-5.2 mmol/L Chloride 104 96-106 mmol/L Carbon Dioxide, Total 22 20-29 mmol/L Calcium 9.8 8.7-10.2 mg/dL Protein, Total 7.1 6.0-8.5 g/dL Albumin 4.1 3.8-4.9 g/dL Globulin, Total 3.0 1.5-4.5 g/dL Bilirubin, Total 0.3 0.0-1.2 mg/dL Alkaline Phosphatase 68 44-121 IU/L AST (SGOT) 22 0-40 IU/L ALT (SGPT) 21 0-32 IU/L Reason For Referral No Information Medications Medication SIG (Take, Route, Frequency, Duration) Notes Start Date End Date Status Estradiol 0.0375 MG/24HR Transdermal; Du ration: 27 Days Active Progesterone 100 MG 1 capsule at bedtime Orally Once a day Active Magnesium Active Ibuprofen 600 MG 1 tablet with food o r milk as needed Orally Three times a day; Duration: 10 days prn 05/15/2023 Active Symbicort 160-4.5 MCG/ACT 2 puffs Inhala tion Twice a day Active Vitamin B12 100 MCG as directed Orally Active Vitamin B2 Active traZODone HCl 150 MG 1 tablet at bedtime Orally Once a day; Duration: 90 days Active Zepbound 2.5 MG/0.5ML 0.5 mL Subcutaneou s weekly; Duration: 30 days 05/22/2024 Not-Taking Atorvastatin Calcium 10 mg TAKE 1 TABLET DAILY Active Acetaminophen 500 MG 2 capsule as needed Orally every 6 hrs; Duration: 10 days prn 05/15/2023 Active Immunizations Vaccine Route Administration Date Status Comme nts Tdap IM Intramuscular 04/24/2024 Administered Social History Tobacco Use: Social History Observation Description Date Details (start date - stop date) Never Smoker NA - NA Tobacco Use/Smoking Question Answer Notes 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 Tob Use: declines Drug Use: declines Caffeine Use: Yes Smoke detectors in home: Yes Seatbelt use: Yes [employer]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 alcohol: social tob: 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 drug: denies [employer]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 alcohol: social tob: denies drug: denies [employer]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 alcohol: social tob: denies drug: denies [employer]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 alcohol: social tob: denies drug: denies [employer]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 alcohol: social tob: denies drug: denies [employer]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 alcohol: social tob: denies drug: denies [employer]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 alcohol: social tob: denies drug: denies [employer]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 alcohol: social tob: denies drug: denies [employer]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 alcohol: social tob: denies drug: denies [employer]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 alcohol: social tob: denies drug: denies [employer]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 alcohol: social tob: denies drug: denies [employer]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 alcohol: social tob: denies drug: denies [employer]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 alcohol: social tob: denies drug: denies [employer]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 alcohol: social tob: denies drug: denies [employer]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 alcohol: social tob: denies drug: denies [employer]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 Tob Use: declines Drug Use: declines Caffeine Use: Yes Smoke detectors in home: Yes Seatbelt use: Yes [employer]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 Tob Use: declines Drug Use: declines Caffeine Use: Yes Smoke detectors in home: Yes Seatbelt use: Yes Problems Problem Type SNOMED Code ICD Code Onset Dates Problem Status W/U Status Risk Notes Problem Vitamin D deficiency (91690644) Vitamin D deficiency, unspecified (E55.9) Active confirmed Problem Obesity (808137736) Other obesity (E66.8) Active confirmed Problem Mixed hyperlipidemia (470967251) Mixed hyperlipidemia (E78.2) Active confirmed Problem Screening for malignant neoplasm of colon (600975747) Encounter for screening for malignant neoplasm of colon (Z12.11) Active confirmed Problem Diabetes mellitus screening (182583667) Encounter for screening for diabetes mellitus (Z13.1) Active confirmed Problem Endocrine/metaboli c screening (355951845) Encounter for screening for other suspected endocrine disorder (Z13.29) Active confirmed Problem Hyperlipidaemia (60696037) Hyperlipidemia, unspecified hyperlipidemia type (E78.5) Active confirmed Problem Anxiety (86740408) Anxiety (F41.9) Active confi rmed Problem Kidney stone (15376949) Kidney stone (N20.0) Active confirmed Problem Annual health maintenance examination (31586583) Annual physical exam (Z00.00) Active confirmed Problem Obesity (933454956) Obesity (BMI 30-39.9) (E66.9) Active confirmed Problem Mild intermittent asthma (533728964) Mild intermittent asthma without complication (J45.20) Active confirmed Problem Obese class I (582118977440034) BMI 33.0-33.9,adult (Z68.33) Active confirmed Problem Vitamin B>12< deficiency anaemia (28901916) Anemia due to vitamin B12 deficiency, unspecified B12 deficiency type (D51.9) Active confirmed Problem Body mass index 30+ - obesity (052979258) BMI 30.0-30.9,adult (Z68.30) Active confirmed Problem Body mass index 30.00 to 34.99 (570318321359756) BMI 34.0-34.9,adult (Z68.34) Active confirmed Problem Difficulty sleeping (955219474) Difficulty sleeping (G47.9) Active confirmed Problem Asthma (613206693) Asthma (J45.909) Active conf irmed Problem Lipid screening (159458411) Lipid screening (Z13.220) Active confirmed Problem Difficulty sleeping (116458123) Sleeping difficulty (G47.9) Active confirmed Problem Vitamin D deficiency (43996513) Vitamin D3 deficiency (E55.9) Active confirmed Problem Hyperlipidemia (87371088) Hyperlipidemia (E78.5) Active confirmed Problem Rhinosinusitis (348643917) Rhinosinusitis (J32.9) Active confirmed Problem Migraine variant with headache (disorder) (933210514) Migraine headache (G43.909) Active confirmed Problem History of hysterectomy (268009839) History of hysterectomy (Z90.710) Active confirmed Vital Signs Heart Rate 100 /min 06/25/2024 Temperature 99.64 degrees Fahrenheit 02/28/2024 Oximetry 98 % 06/25/2024 Blood pressure diastolic 84 mm Hg 06/25/2024 Height 60 in 06/25/2024 Blood pressure systolic 130 mm Hg 06/25/2024 Weight 171.4 lbs 06/25/2024 BMI 33.47 kg/m2 06/25/2024 Encounters Encounter Location Date Provider Diagnosis [facility] [address] [place] [address] 02/28/2024 TALASHLY ESPANA Rhinosinusitis J32.9 ; History of hysterectomy Z90.710 ; Hormone imbalance E34.9 ; Brain fog R41.89 ; Close exposure to COVID-19 virus Z20.822 and Infection due to respiratory syncytial virus (RSV), unspecified infection type B33.[address] [place], [place] 04/19/2024 ANTHONY BORHOT Acute viral syndrome B34.9 and Acute sore throat J02.[address] [place], [place] 04/24/2024 JAMEL DUFFY Mild intermittent as thma without complication J45.20 ; Wellness examination Z00.00 ; Difficulty sleeping G47.9 ; Hyperlipidemia, unspecified hyperlipidemia type E78.5 ; Anxiety F41.9 ; Encounter for immunization Z23 and BMI 34.0-34.9,adult Z68.[address] [place], [place] 05/22/2024 JAMEL DUFFY BMI 33.0-33.9,adult Z68.33 ; Obesity (BMI 30-39.9) E66.9 ; Mild intermittent asthma without complication J45.20 ; Difficulty sleeping G47.9 ; Hyperlipidemia, unspecified hyperlipidemia type E78.5 and Anxiety F41.[address] [place] [address] 06/25/2024 JAMEL DUFFY BMI 33.0-33.9,adult Z68.33 ; Obesity (BMI 30-39.9) E66.9 ; Mild intermittent asthma without complication J45.20 ; Difficulty sleeping G47.9 ; Anxiety F41.9 ; Mixed hyperlipidemia E78.2 and Nutritional counseling Z71.3 [facility] [address] [place] [address] 02/28/2024 JAMEL DUFFY [facility] [address] [place] [address] 02/28/2024 JAMEL DUFFY [facility] [address] [place], [place] 02/28/2024 MELANIE ESPANA [facility] [address] [place] [address] 03/06/2024 JAMEL DUFFY [facility] [address] [place] [address] 04/18/2024 JAMEL DUFFY [facility] [address] [place] [address] 04/22/2024 ANTHONY KAY [facility] [address] [place], [place] 04/23/2024 JAMEL DUFFY [facility] [address] [place] [address] 04/24/2024 JAMEL DUFFY Annual physical exam Z00.00 ; Lipid screening Z13.220 ; Encounter for screening for diabetes mellitus Z13.1 ; Vitamin D deficiency, unspecified E55.9 ; Encounter for screening for other suspected endocrine disorder Z13.29 and Anemia due to vitamin B12 deficiency, unspecified B12 deficiency type D51.[address] [place] [address] 04/28/2024 JAMEL DUFFY [facility] [address] [place], [place] 05/09/2024 JAMEL DUFFY [facility] [address] [place] [address] 05/22/2024 JAMEL DUFFY [facility] [address] [place] [address] 12/17/2024 JAMEL DUFFY Assessments Encounter Date Diagnosis (ICD Code) Assessment Notes Treatment Notes Treatment Clinical Notes Section Notes 02/28/2024 Rhinosinusitis (ICD-10 - J32.9) Patient will be treated with azithromycin and prednisone taper. Will watch for any asthma exacerbation. Recommended vitamin D and probiotics to build up her immune system along with catching up on her sleep. Discussed risk benefits of HRT and follow-up with primary care provider RSV awab came positive Pt educated on result RX plan 02/28/2024 History of hysterectomy (ICD-10 - Z90.710) Patient will be treated with azithromycin and prednisone taper. Will watch for any asthma exacerbation. Recommended vitamin D and probiotics to build up her immune system along with catching up on her sleep. Discussed risk benefits of HRT and follow-up with primary care provider RSV awab came positive Pt educated on result RX plan 04/19/2024 Acute viral syndrome (ICD-10 - B34.9) Suspect viral syndrome Supportive care discussed including ibuprofen, salt water gargles, vitamin C and zinc They are in school vacation this week therefore she can stay home and rest We discussed antibiotic stewardship Rapid strep unremarkable Respiratory PCR is pending Antibiotic stewardship is the effort to measure and improve how antibiotics are prescribed by clinicians and used by patients. Improving antibiotic prescribing and use is critical to effectively treat infections via evidenced based practice, protect patients from harms caused by unnecessary antibiotic use, and combat antibiotic resistance. What is an example of antibiotic stewardship? That includes prescribing antibiotics only when they are needed (i.e., for bacterial infections, not viral ones), prescribing the appropriate antibiotics for the diagnosed infection, and prescribing the right dose and duration of antibiotic treatment, among other things. Of note, some information is being carried forward from prior records for informational purposes only and is being cited so that efficiency, safety and quality of the patient's care is not compromised This note was prepared using voice recognition software and direct typing Please excuse inadvertent solder cream maker or typing errors, or uncorrected word substitutions Although every attempt has been made by the provider to proofread this document, occasional misspellings and typographical errors may still be present Due to the previous pandemic, and the use of personal protective equipment (PPE) This may decrease voice recognition accuracy Inadvertent solder cream maker errors may occur 04/19/2024 Acute sore throat (ICD-10 - J02.9) Suspect viral syndrome Supportive care discussed including ibuprofen, salt water gargles, vitamin C and zinc They are in school vacation this week therefore she can stay home and rest We discussed antibiotic stewardship Rapid strep unremarkable Respiratory PCR is pending Antibiotic stewardship is the effort to measure and improve how antibiotics are prescribed by clinicians and used by patients. Improving antibiotic prescribing and use is critical to effectively treat infections via evidenced based practice, protect patients from harms caused by unnecessary antibiotic use, and combat antibiotic resistance. What is an example of antibiotic stewardship? That includes prescribing antibiotics only when they are needed (i.e., for bacterial infections, not viral ones), prescribing the appropriate antibiotics for the diagnosed infection, and prescribing the right dose and duration of antibiotic treatment, among other things. Of note, some information is being carried forward from prior records for informational purposes only and is being cited so that efficiency, safety and quality of the patient's care is not compromised This note was prepared using voice recognition software and direct typing Please excuse inadvertent solder cream maker or typing errors, or uncorrected word substitutions Although every attempt has been made by the provider to proofread this document, occasional misspellings and typographical errors may still be present Due to the previous pandemic, and the use of personal protective equipment (PPE) This may decrease voice recognition accuracy Inadvertent solder cream maker errors may occur 04/24/2024 Mild intermittent asthma without complication (ICD-10 - J45.20) Carmen is a pleasant 53-year-old female who presents the office for a complete physical examination. # Due for blood work, ordered today # Scheduled for colonoscopy July 2024 # Up-to-date on mammogram 12/2023 # Declines flu, COVID, shingles vaccine but will get tetanus vaccine today on 04/24/2024 # Going to follow with [facility] June 2024, having concerns for hot flashes and night sweats post hysterectomy. Did offer hormonal saliva testing and following with Dr. Carmen Espana, but patient states that she would prefer to follow-up with her [facility]. # Also admits to more difficulty with weight gain. Weight 178 with a BMI of 34 today. Used to follow with our weight loss program, was doing Contrave but stopped medication secondary to headaches post hysterectomy. Will obtain full panel blood work and follow-up in 4 weeks for weight management for body scan. Could consider alternative options. # Difficulty sleeping: Taking trazodone 150 mg at night as needed. Offered sleep study, for which patient declines today. 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 Patient seen and examined. Comprehensive discussion was done on the following. 1. Nutrition: It is important to follow a healthy diet based on lots of vegetables and legumes and good fat. Avoid processed food and processed carbohydrates. Prepare your own meals. Read labels and avoid high fructose corn syrup, processed chemicals added to increase shelf life and preprepared meals. Avoid fast foods. Eat slowly and plan meals for a week. Try to count calories and be mindful off daily calorie intake. Get into the habit of keeping an eye on your weight by using an appropriate scale. Learn to log exercise and discussed fitness Apps like [employer] which can help keep log off calories taken versus calories burned. Local food should be preferred. Discussed Dirty Dozen Versus Clean Fifteen. Discussed healthy supplements like fish oil, Tumeric, Curcumin, Melatonin, Resveratrol, Probiotics, Vitamin-D, Alpha-Lipoic acid, Vitamin-D and coconut oil. 2. It is important to exercise regularly. Is a good habit to walk at least 30 minutes a day. Gentle weightlifting with standard precautions to protect the back. Finding activity like cycling or hiking and get into the habit of engaging in it. Stretching before and after the exercises important. It is also important to contact me if there are any problems like shortness of breath, chest pain, back pain and joint or muscle pain associated with the exercise. 3. Discussed age appropriate screening guidelines. Colonoscopy needs to start at age 50 with stool for occult blood as appropriate. There is a new test that can test for genetic abnormalities in the stool sample, Cologuard. This would not replace a colonoscopy but could be used as a screening tool for patients who do not want a colonoscopy. We discussed the importance of early detection of colon cancer. 4. Discussed current guidelines with respect to breast examination, mammogram and pap smear for early detection of breast and cervical cancer. Patient advised to follow up with these appointments. 5. Discussed safe driving and no use of smart phone while driving 6. Age-appropriate immunizations were discussed. A tetanus booster is needed every 10 years. Flu vaccine is recommended every year just before the start of the flu season. Shingles vaccine is recommended after age 50 but not all insurances cover it. Pneumonia vaccine is given after age 65 unless there are certain comorbidities for which it is started earlier. 7. Diagnostic labs were discussed. These could include/not limited to CBC CMP and lipids with fasting blood glucose and insulin levels. Vitamin D and hemoglobin A1c testing might be appropriate. All quetsions answered to patients satisfaction. Patient verbalized understanding of diagnosis and treatments explained. To call sooner prior to next visit it any questions/concerns arise. Case discussed with collaborating physician Haroldo Espana who reviewed the assessment and plan. Chart, medications, labs, vital signs reviewed. Dictation was accomplished with the use of Access [employer] voice recognition software, prone to medical misidentifications and grammatical errors. This is unintentional and the practitioner does try to identify and correct these, but some could still be present. Please do not hesitate to contact practitioner for clarification. 04/24/2024 Wellness examination (ICD-10 - Z00.00) Carmen is a pleasant 53-year-old female who presents the office for a complete physical examination. # Due for blood work, ordered today # Scheduled for colonoscopy July 2024 # Up-to-date on mammogram 12/2023 # Declines flu, COVID, shingles vaccine but will get tetanus vaccine today on 04/24/2024 # Going to follow with [facility] June 2024, having concerns for hot flashes and night sweats post hysterectomy. Did offer hormonal saliva testing and following with Dr. Carmen Espana, but patient states that she would prefer to follow-up with her [facility]. # Also admits to more difficulty with weight gain. Weight 178 with a BMI of 34 today. Used to follow with our weight loss program, was doing Contrave but stopped medication secondary to headaches post hysterectomy. Will obtain full panel blood work and follow-up in 4 weeks for weight management for body scan. Could consider alternative options. # Difficulty sleeping: Taking trazodone 150 mg at night as needed. Offered sleep study, for which patient declines today. 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 Patient seen and examined. Comprehensive discussion was done on the following. 1. Nutrition: It is important to follow a healthy diet based on lots of vegetables and legumes and good fat. Avoid processed food and processed carbohydrates. Prepare your own meals. Read labels and avoid high fructose corn syrup, processed chemicals added to increase shelf life and preprepared meals. Avoid fast foods. Eat slowly and plan meals for a week. Try to count calories and be mindful off daily calorie intake. Get into the habit of keeping an eye on your weight by using an appropriate scale. Learn to log exercise and discussed fitness Apps like [employer] which can help keep log off calories taken versus calories burned. Local food should be preferred. Discussed Dirty Dozen Versus Clean Fifteen. Discussed healthy supplements like fish oil, Tumeric, Curcumin, Melatonin, Resveratrol, Probiotics, Vitamin-D, Alpha-Lipoic acid, Vitamin-D and coconut oil. 2. It is important to exercise regularly. Is a good habit to walk at least 30 minutes a day. Gentle weightlifting with standard precautions to protect the back. Finding activity like cycling or hiking and get into the habit of engaging in it. Stretching before and after the exercises important. It is also important to contact me if there are any problems like shortness of breath, chest pain, back pain and joint or muscle pain associated with the exercise. 3. Discussed age appropriate screening guidelines. Colonoscopy needs to start at age 50 with stool for occult blood as appropriate. There is a new test that can test for genetic abnormalities in the stool sample, Cologuard. This would not replace a colonoscopy but could be used as a screening tool for patients who do not want a colonoscopy. We discussed the importance of early detection of colon cancer. 4. Discussed current guidelines with respect to breast examination, mammogram and pap smear for early detection of breast and cervical cancer. Patient advised to follow up with these appointments. 5. Discussed safe driving and no use of smart phone while driving 6. Age-appropriate immunizations were discussed. A tetanus booster is needed every 10 years. Flu vaccine is recommended every year just before the start of the flu season. Shingles vaccine is recommended after age 50 but not all insurances cover it. Pneumonia vaccine is given after age 65 unless there are certain comorbidities for which it is started earlier. 7. Diagnostic labs were discussed. These could include/not limited to CBC CMP and lipids with fasting blood glucose and insulin levels. Vitamin D and hemoglobin A1c testing might be appropriate. All quetsions answered to patients satisfaction. Patient verbalized understanding of diagnosis and treatments explained. To call sooner prior to next visit it any questions/concerns arise. Case discussed with collaborating physician Haroldo Espana who reviewed the assessment and plan. Chart, medications, labs, vital signs reviewed. Dictation was accomplished with the use of Access [employer] voice recognition software, prone to medical misidentifications and grammatical errors. This is unintentional and the practitioner does try to identify and correct these, but some could still be present. Please do not hesitate to contact practitioner for clarification. 04/24/2024 Annual physical exam (ICD-10 - Z00.00) 05/22/2024 Obesity (BMI 30-39.9) (ICD-10 - E66.9) 05/22/2024: Weight 173, BMI 33. Patient is reestablishing with our weight loss program. Last time she was seen was in August 2023. Tried Wegovy, did not tolerate well secondary to side effects, also tried Contrave, for which she did not tolerate secondary to headaches. Will trial Zepbound. Discussed Zepbound 2.5 mg once weekly. Discussed proper use, side effects. Also discussed prior authorization process and insurance coverage. If no coverage consider [id number] costs. # Scheduled for colonoscopy July 2024 # Up-to-date on mammogram 12/2023 # Declines flu, COVID, shingles vaccine but will get tetanus vaccine today on 04/24/2024 # Going to follow with [facility] June 2024, having concerns for hot flashes and night sweats post hysterectomy. Did offer hormonal saliva testing and following with Dr. Carmen Espana, but patient states that she would prefer to follow-up with her [facility]. # Difficulty sleeping: Taking trazodone 150 mg at night as needed. Offered sleep study, for which patient declines today. 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 Atorvastatin 10 mg was reinitiated as patient was not taking medication. Has been taking for the past 2 weeks with compliance, without any side effects. # Asthma: Continue Symbicort twice daily # Joint pain: Ibuprofen and acetaminophen as needed Time spent with patient 30 minutes with greater than 50% on patient occasion and care coordination Follow-up in 4 weeks, sooner as needed All quetsions answered to patients satisfaction. Patient verbalized understanding of diagnosis and treatments explained. To call sooner prior to next visit it any questions/concerns arise. Case discussed with collaborating physician Haroldo Espana who reviewed the assessment and plan. Chart, medications, labs, vital signs reviewed. Dictation was accomplished with the use of Access [employer] voice recognition software, prone to medical misidentifications and grammatical errors. This is unintentional and the practitioner does try to identify and correct these, but some could still be present. Please do not hesitate to contact practitioner for clarification. 05/22/2024 BMI 33.0-33.9,adult (ICD-10 - Z68.33) 05/22/2024: Weight 173, BMI 33. Patient is reestablishing with our weight loss program. Last time she was seen was in August 2023. Tried Wegovy, did not tolerate well secondary to side effects, also tried Contrave, for which she did not tolerate secondary to headaches. Will trial Zepbound. Discussed Zepbound 2.5 mg once weekly. Discussed proper use, side effects. Also discussed prior authorization process and insurance coverage. If no coverage consider [id number] costs. # Scheduled for colonoscopy July 2024 # Up-to-date on mammogram 12/2023 # Declines flu, COVID, shingles vaccine but will get tetanus vaccine today on 04/24/2024 # Going to follow with [facility] June 2024, having concerns for hot flashes and night sweats post hysterectomy. Did offer hormonal saliva testing and following with Dr. Carmen Espana, but patient states that she would prefer to follow-up with her [facility]. # Difficulty sleeping: Taking trazodone 150 mg at night as needed. Offered sleep study, for which patient declines today. 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 Atorvastatin 10 mg was reinitiated as patient was not taking medication. Has been taking for the past 2 weeks with compliance, without any side effects. # Asthma: Continue Symbicort twice daily # Joint pain: Ibuprofen and acetaminophen as needed Time spent with patient 30 minutes with greater than 50% on patient occasion and care coordination Follow-up in 4 weeks, sooner as needed All quetsions answered to patients satisfaction. Patient verbalized understanding of diagnosis and treatments explained. To call sooner prior to next visit it any questions/concerns arise. Case discussed with collaborating physician Haroldo Espnaa who reviewed the assessment and plan. Chart, medications, labs, vital signs reviewed. Dictation was accomplished with the use of Access [employer] voice recognition software, prone to medical misidentifications and grammatical errors. This is unintentional and the practitioner does try to identify and correct these, but some could still be present. Please do not hesitate to contact practitioner for clarification. 06/25/2024 BMI 33.0-33.9,adult (ICD-10 - Z68.33) 05/22/2024: Weight 173, BMI 33. Patient is reestablishing with our weight loss program. Last time she was seen was in August 2023. Tried Wegovy, did not tolerate well secondary to side effects, also tried Contrave, for which she did not tolerate secondary to headaches. Will trial Zepbound. Discussed Zepbound 2.5 mg once weekly. Discussed proper use, side effects. Also discussed prior authorization process and insurance coverage. If no coverage consider [id number] costs. 06/25/24: Weight 171, BMI 33. Weight maintenance since last visit. Did not end up getting Zepbound because her health insurance states the medication is not in network. She is going to call her health insurance. Otherwise has taken Wegovy in the past and did not tolerate well, not a candidate for phentermine as she does have a history of tachycardia, and has already tried Contrave without significant improvement. Her insurance is changing to [employer] in September. She will call us with her insurance determination when she contacts them. If otherwise, will wait until September as patient states that she cannot pay [id number] for the medications. # Scheduled for colonoscopy July 2024 # Up-to-date on mammogram 12/2023 # Declines flu, COVID, shingles vaccine but will get tetanus vaccine today on 04/24/2024 # Going to follow with [facility] June 2024, having concerns for hot flashes and night sweats post hysterectomy. Did offer hormonal saliva testing and following with Dr. Carmen Espana, but patient states that she would prefer to follow-up with her [facility]. # Difficulty sleeping: Taking trazodone 150 mg at night as needed. Offered sleep study, for which patient declines today. 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 Atorvastatin 10 mg was reinitiated as patient was not taking medication. Has been taking for the past 2 weeks with compliance, without any side effects. # Asthma: Continue Symbicort twice daily # Joint pain: Ibuprofen and acetaminophen as needed # Back pain: Following with orthopedics at this time. Going through physical therapy twice weekly, going to contact orthopedics to inquire about imaging.States this is limiting her exercise at this time. Time spent with patient 30 minutes with greater than 50% on patient occasion and care coordination Follow-up in 4-6 weeks, sooner as needed All quetsions answered to patients satisfaction. Patient verbalized understanding of diagnosis and treatments explained. To call sooner prior to next visit it any questions/concerns arise. Case discussed with collaborating physician Haroldo Espana who reviewed the assessment and plan. Chart, medications, labs, vital signs reviewed. Dictation was accomplished with the use of Access [employer] voice recognition software, prone to medical misidentifications and grammatical errors. This is unintentional and the practitioner does try to identify and correct these, but some could still be present. Please do not hesitate to contact practitioner for clarification. 06/25/2024 Obesity (BMI 30-39.9) (ICD-10 - E66.9) 05/22/2024: Weight 173, BMI 33. Patient is reestablishing with our weight loss program. Last time she was seen was in August 2023. Tried Wegovy, did not tolerate well secondary to side effects, also tried Contrave, for which she did not tolerate secondary to headaches. Will trial Zepbound. Discussed Zepbound 2.5 mg once weekly. Discussed proper use, side effects. Also discussed prior authorization process and insurance coverage. If no coverage consider [id number] costs. 06/25/24: Weight 171, BMI 33. Weight maintenance since last visit. Did not end up getting Zepbound because her health insurance states the medication is not in network. She is going to call her health insurance. Otherwise has taken Wegovy in the past and did not tolerate well, not a candidate for phentermine as she does have a history of tachycardia, and has already tried Contrave without significant improvement. Her insurance is changing to [employer] in September. She will call us with her insurance determination when she contacts them. If otherwise, will wait until September as patient states that she cannot pay [id number] for the medications. # Scheduled for colonoscopy July 2024 # Up-to-date on mammogram 12/2023 # Declines flu, COVID, shingles vaccine but will get tetanus vaccine today on 04/24/2024 # Going to follow with [facility] June 2024, having concerns for hot flashes and night sweats post hysterectomy. Did offer hormonal saliva testing and following with Dr. Carmen Espana, but patient states that she would prefer to follow-up with her [facility]. # Difficulty sleeping: Taking trazodone 150 mg at night as needed. Offered sleep study, for which patient declines today. 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 Atorvastatin 10 mg was reinitiated as patient was not taking medication. Has been taking for the past 2 weeks with compliance, without any side effects. # Asthma: Continue Symbicort twice daily # Joint pain: Ibuprofen and acetaminophen as needed # Back pain: Following with orthopedics at this time. Going through physical therapy twice weekly, going to contact orthopedics to inquire about imaging.States this is limiting her exercise at this time. Time spent with patient 30 minutes with greater than 50% on patient occasion and care coordination Follow-up in 4-6 weeks, sooner as needed All quetsions answered to patients satisfaction. Patient verbalized understanding of diagnosis and treatments explained. To call sooner prior to next visit it any questions/concerns arise. Case discussed with collaborating physician Haroldo Espana who reviewed the assessment and plan. Chart, medications, labs, vital signs reviewed. Dictation was accomplished with the use of Access [employer] voice recognition software, prone to medical misidentifications and grammatical errors. This is unintentional and the practitioner does try to identify and correct these, but some could still be present. Please do not hesitate to contact practitioner for clarification. 06/25/2024 Mild intermittent asthma without complication (ICD-10 - J45.20) 05/22/2024: Weight 173, BMI 33. Patient is reestablishing with our weight loss program. Last time she was seen was in August 2023. Tried Wegovy, did not tolerate well secondary to side effects, also tried Contrave, for which she did not tolerate secondary to headaches. Will trial Zepbound. Discussed Zepbound 2.5 mg once weekly. Discussed proper use, side effects. Also discussed prior authorization process and insurance coverage. If no coverage consider [id number] costs. 06/25/24: Weight 171, BMI 33. Weight maintenance since last visit. Did not end up getting Zepbound because her health insurance states the medication is not in network. She is going to call her health insurance. Otherwise has taken Wegovy in the past and did not tolerate well, not a candidate for phentermine as she does have a history of tachycardia, and has already tried Contrave without significant improvement. Her insurance is changing to [employer] in September. She will call us with her insurance determination when she contacts them. If otherwise, will wait until September as patient states that she cannot pay [id number] for the medications. # Scheduled for colonoscopy July 2024 # Up-to-date on mammogram 12/2023 # Declines flu, COVID, shingles vaccine but will get tetanus vaccine today on 04/24/2024 # Going to follow with [facility] June 2024, having concerns for hot flashes and night sweats post hysterectomy. Did offer hormonal saliva testing and following with Dr. Carmen Espana, but patient states that she would prefer to follow-up with her [facility]. # Difficulty sleeping: Taking trazodone 150 mg at night as needed. Offered sleep study, for which patient declines today. 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 Atorvastatin 10 mg was reinitiated as patient was not taking medication. Has been taking for the past 2 weeks with compliance, without any side effects. # Asthma: Continue Symbicort twice daily # Joint pain: Ibuprofen and acetaminophen as needed # Back pain: Following with orthopedics at this time. Going through physical therapy twice weekly, going to contact orthopedics to inquire about imaging.States this is limiting her exercise at this time. Time spent with patient 30 minutes with greater than 50% on patient occasion and care coordination Follow-up in 4-6 weeks, sooner as needed All quetsions answered to patients satisfaction. Patient verbalized understanding of diagnosis and treatments explained. To call sooner prior to next visit it any questions/concerns arise. Case discussed with collaborating physician Haroldo Espana who reviewed the assessment and plan. Chart, medications, labs, vital signs reviewed. Dictation was accomplished with the use of Access [employer] voice recognition software, prone to medical misidentifications and grammatical errors. This is unintentional and the practitioner does try to identify and correct these, but some could still be present. Please do not hesitate to contact practitioner for clarification. 05/22/2024 Mild intermittent asthma without complication (ICD-10 - J45.20) 05/22/2024: Weight 173, BMI 33. Patient is reestablishing with our weight loss program. Last time she was seen was in August 2023. Tried Wegovy, did not tolerate well secondary to side effects, also tried Contrave, for which she did not tolerate secondary to headaches. Will trial Zepbound. Discussed Zepbound 2.5 mg once weekly. Discussed proper use, side effects. Also discussed prior authorization process and insurance coverage. If no coverage consider [id number] costs. # Scheduled for colonoscopy July 2024 # Up-to-date on mammogram 12/2023 # Declines flu, COVID, shingles vaccine but will get tetanus vaccine today on 04/24/2024 # Going to follow with [facility] June 2024, having concerns for hot flashes and night sweats post hysterectomy. Did offer hormonal saliva testing and following with Dr. Carmen Espana, but patient states that she would prefer to follow-up with her [facility]. # Difficulty sleeping: Taking trazodone 150 mg at night as needed. Offered sleep study, for which patient declines today. 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 Atorvastatin 10 mg was reinitiated as patient was not taking medication. Has been taking for the past 2 weeks with compliance, without any side effects. # Asthma: Continue Symbicort twice daily # Joint pain: Ibuprofen and acetaminophen as needed Time spent with patient 30 minutes with greater than 50% on patient occasion and care coordination Follow-up in 4 weeks, sooner as needed All quetsions answered to patients satisfaction. Patient verbalized understanding of diagnosis and treatments explained. To call sooner prior to next visit it any questions/concerns arise. Case discussed with collaborating physician Haroldo Espana who reviewed the assessment and plan. Chart, medications, labs, vital signs reviewed. Dictation was accomplished with the use of Access [employer] voice recognition software, prone to medical misidentifications and grammatical errors. This is unintentional and the practitioner does try to identify and correct these, but some could still be present. Please do not hesitate to contact practitioner for clarification. 04/24/2024 Lipid screening (ICD-10 - Z13.220) 04/24/2024 Difficulty sleeping (ICD-10 - G47.9) Carmen is a pleasant 53-year-old female who presents the office for a complete physical examination. # Due for blood work, ordered today # Scheduled for colonoscopy July 2024 # Up-to-date on mammogram 12/2023 # Declines flu, COVID, shingles vaccine but will get tetanus vaccine today on 04/24/2024 # Going to follow with [facility] June 2024, having concerns for hot flashes and night sweats post hysterectomy. Did offer hormonal saliva testing and following with Dr. Carmen Espana, but patient states that she would prefer to follow-up with her [facility]. # Also admits to more difficulty with weight gain. Weight 178 with a BMI of 34 today. Used to follow with our weight loss program, was doing Contrave but stopped medication secondary to headaches post hysterectomy. Will obtain full panel blood work and follow-up in 4 weeks for weight management for body scan. Could consider alternative options. # Difficulty sleeping: Taking trazodone 150 mg at night as needed. Offered sleep study, for which patient declines today. 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 Patient seen and examined. Comprehensive discussion was done on the following. 1. Nutrition: It is important to follow a healthy diet based on lots of vegetables and legumes and good fat. Avoid processed food and processed carbohydrates. Prepare your own meals. Read labels and avoid high fructose corn syrup, processed chemicals added to increase shelf life and preprepared meals. Avoid fast foods. Eat slowly and plan meals for a week. Try to count calories and be mindful off daily calorie intake. Get into the habit of keeping an eye on your weight by using an appropriate scale. Learn to log exercise and discussed fitness Apps like [employer] which can help keep log off calories taken versus calories burned. Local food should be preferred. Discussed Dirty Dozen Versus Clean Fifteen. Discussed healthy supplements like fish oil, Tumeric, Curcumin, Melatonin, Resveratrol, Probiotics, Vitamin-D, Alpha-Lipoic acid, Vitamin-D and coconut oil. 2. It is important to exercise regularly. Is a good habit to walk at least 30 minutes a day. Gentle weightlifting with standard precautions to protect the back. Finding activity like cycling or hiking and get into the habit of engaging in it. Stretching before and after the exercises important. It is also important to contact me if there are any problems like shortness of breath, chest pain, back pain and joint or muscle pain associated with the exercise. 3. Discussed age appropriate screening guidelines. Colonoscopy needs to start at age 50 with stool for occult blood as appropriate. There is a new test that can test for genetic abnormalities in the stool sample, Cologuard. This would not replace a colonoscopy but could be used as a screening tool for patients who do not want a colonoscopy. We discussed the importance of early detection of colon cancer. 4. Discussed current guidelines with respect to breast examination, mammogram and pap smear for early detection of breast and cervical cancer. Patient advised to follow up with these appointments. 5. Discussed safe driving and no use of smart phone while driving 6. Age-appropriate immunizations were discussed. A tetanus booster is needed every 10 years. Flu vaccine is recommended every year just before the start of the flu season. Shingles vaccine is recommended after age 50 but not all insurances cover it. Pneumonia vaccine is given after age 65 unless there are certain comorbidities for which it is started earlier. 7. Diagnostic labs were discussed. These could include/not limited to CBC CMP and lipids with fasting blood glucose and insulin levels. Vitamin D and hemoglobin A1c testing might be appropriate. All quetsions answered to patients satisfaction. Patient verbalized understanding of diagnosis and treatments explained. To call sooner prior to next visit it any questions/concerns arise. Case discussed with collaborating physician Haroldo Espana who reviewed the assessment and plan. Chart, medications, labs, vital signs reviewed. Dictation was accomplished with the use of Access [employer] voice recognition software, prone to medical misidentifications and grammatical errors. This is unintentional and the practitioner does try to identify and correct these, but some could still be present. Please do not hesitate to contact practitioner for clarification. 02/28/2024 Hormone imbalance (ICD-10 - E34.9) Patient will be treated with azithromycin and prednisone taper. Will watch for any asthma exacerbation. Recommended vitamin D and probiotics to build up her immune system along with catching up on her sleep. Discussed risk benefits of HRT and follow-up with primary care provider BERTHA vallejo came positive Pt educated on result RX plan 02/28/2024 Brain fog (ICD-10 - R41.89) Patient will be treated with azithromycin and prednisone taper. Will watch for any asthma exacerbation. Recommended vitamin D and probiotics to build up her immune system along with catching up on her sleep. Discussed risk benefits of HRT and follow-up with primary care provider BERTHA vallejo came positive Pt educated on result RX plan 04/24/2024 Hyperlipidemia, unspecified hyperlipidemia type (ICD-10 - E78.5) Carmen is a pleasant 53-year-old female who presents the office for a complete physical examination. # Due for blood work, ordered today # Scheduled for colonoscopy July 2024 # Up-to-date on mammogram 12/2023 # Declines flu, COVID, shingles vaccine but will get tetanus vaccine today on 04/24/2024 # Going to follow with [facility] June 2024, having concerns for hot flashes and night sweats post hysterectomy. Did offer hormonal saliva testing and following with Dr. Carmen Espana, but patient states that she would prefer to follow-up with her [facility]. # Also admits to more difficulty with weight gain. Weight 178 with a BMI of 34 today. Used to follow with our weight loss program, was doing Contrave but stopped medication secondary to headaches post hysterectomy. Will obtain full panel blood work and follow-up in 4 weeks for weight management for body scan. Could consider alternative options. # Difficulty sleeping: Taking trazodone 150 mg at night as needed. Offered sleep study, for which patient declines today. 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 Patient seen and examined. Comprehensive discussion was done on the following. 1. Nutrition: It is important to follow a healthy diet based on lots of vegetables and legumes and good fat. Avoid processed food and processed carbohydrates. Prepare your own meals. Read labels and avoid high fructose corn syrup, processed chemicals added to increase shelf life and preprepared meals. Avoid fast foods. Eat slowly and plan meals for a week. Try to count calories and be mindful off daily calorie intake. Get into the habit of keeping an eye on your weight by using an appropriate scale. Learn to log exercise and discussed fitness Apps like [employer] which can help keep log off calories taken versus calories burned. Local food should be preferred. Discussed Dirty Dozen Versus Clean Fifteen. Discussed healthy supplements like fish oil, Tumeric, Curcumin, Melatonin, Resveratrol, Probiotics, Vitamin-D, Alpha-Lipoic acid, Vitamin-D and coconut oil. 2. It is important to exercise regularly. Is a good habit to walk at least 30 minutes a day. Gentle weightlifting with standard precautions to protect the back. Finding activity like cycling or hiking and get into the habit of engaging in it. Stretching before and after the exercises important. It is also important to contact me if there are any problems like shortness of breath, chest pain, back pain and joint or muscle pain associated with the exercise. 3. Discussed age appropriate screening guidelines. Colonoscopy needs to start at age 50 with stool for occult blood as appropriate. There is a new test that can test for genetic abnormalities in the stool sample, Cologuard. This would not replace a colonoscopy but could be used as a screening tool for patients who do not want a colonoscopy. We discussed the importance of early detection of colon cancer. 4. Discussed current guidelines with respect to breast examination, mammogram and pap smear for early detection of breast and cervical cancer. Patient advised to follow up with these appointments. 5. Discussed safe driving and no use of smart phone while driving 6. Age-appropriate immunizations were discussed. A tetanus booster is needed every 10 years. Flu vaccine is recommended every year just before the start of the flu season. Shingles vaccine is recommended after age 50 but not all insurances cover it. Pneumonia vaccine is given after age 65 unless there are certain comorbidities for which it is started earlier. 7. Diagnostic labs were discussed. These could include/not limited to CBC CMP and lipids with fasting blood glucose and insulin levels. Vitamin D and hemoglobin A1c testing might be appropriate. All quetsions answered to patients satisfaction. Patient verbalized understanding of diagnosis and treatments explained. To call sooner prior to next visit it any questions/concerns arise. Case discussed with collaborating physician Haroldo Espana who reviewed the assessment and plan. Chart, medications, labs, vital signs reviewed. Dictation was accomplished with the use of Access [employer] voice recognition software, prone to medical misidentifications and grammatical errors. This is unintentional and the practitioner does try to identify and correct these, but some could still be present. Please do not hesitate to contact practitioner for clarification. 04/24/2024 Encounter for screening for diabetes mellitus (ICD-10 - Z13.1) 05/22/2024 Difficulty sleeping (ICD-10 - G47.9) 05/22/2024: Weight 173, BMI 33. Patient is reestablishing with our weight loss program. Last time she was seen was in August 2023. Tried Wegovy, did not tolerate well secondary to side effects, also tried Contrave, for which she did not tolerate secondary to headaches. Will trial Zepbound. Discussed Zepbound 2.5 mg once weekly. Discussed proper use, side effects. Also discussed prior authorization process and insurance coverage. If no coverage consider [id number] costs. # Scheduled for colonoscopy July 2024 # Up-to-date on mammogram 12/2023 # Declines flu, COVID, shingles vaccine but will get tetanus vaccine today on 04/24/2024 # Going to follow with [facility] June 2024, having concerns for hot flashes and night sweats post hysterectomy. Did offer hormonal saliva testing and following with Dr. Carmen Espana, but patient states that she would prefer to follow-up with her [facility]. # Difficulty sleeping: Taking trazodone 150 mg at night as needed. Offered sleep study, for which patient declines today. 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 Atorvastatin 10 mg was reinitiated as patient was not taking medication. Has been taking for the past 2 weeks with compliance, without any side effects. # Asthma: Continue Symbicort twice daily # Joint pain: Ibuprofen and acetaminophen as needed Time spent with patient 30 minutes with greater than 50% on patient occasion and care coordination Follow-up in 4 weeks, sooner as needed All quetsions answered to patients satisfaction. Patient verbalized understanding of diagnosis and treatments explained. To call sooner prior to next visit it any questions/concerns arise. Case discussed with collaborating physician Haroldo Espnaa who reviewed the assessment and plan. Chart, medications, labs, vital signs reviewed. Dictation was accomplished with the use of Access [employer] voice recognition software, prone to medical misidentifications and grammatical errors. This is unintentional and the practitioner does try to identify and correct these, but some could still be present. Please do not hesitate to contact practitioner for clarification. 06/25/2024 Difficulty sleeping (ICD-10 - G47.9) 05/22/2024: Weight 173, BMI 33. Patient is reestablishing with our weight loss program. Last time she was seen was in August 2023. Tried Wegovy, did not tolerate well secondary to side effects, also tried Contrave, for which she did not tolerate secondary to headaches. Will trial Zepbound. Discussed Zepbound 2.5 mg once weekly. Discussed proper use, side effects. Also discussed prior authorization process and insurance coverage. If no coverage consider [id number] costs. 06/25/24: Weight 171, BMI 33. Weight maintenance since last visit. Did not end up getting Zepbound because her health insurance states the medication is not in network. She is going to call her health insurance. Otherwise has taken Wegovy in the past and did not tolerate well, not a candidate for phentermine as she does have a history of tachycardia, and has already tried Contrave without significant improvement. Her insurance is changing to [employer] in September. She will call us with her insurance determination when she contacts them. If otherwise, will wait until September as patient states that she cannot pay [id number] for the medications. # Scheduled for colonoscopy July 2024 # Up-to-date on mammogram 12/2023 # Declines flu, COVID, shingles vaccine but will get tetanus vaccine today on 04/24/2024 # Going to follow with [facility] June 2024, having concerns for hot flashes and night sweats post hysterectomy. Did offer hormonal saliva testing and following with Dr. Carmen Espana, but patient states that she would prefer to follow-up with her [facility]. # Difficulty sleeping: Taking trazodone 150 mg at night as needed. Offered sleep study, for which patient declines today. 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 Atorvastatin 10 mg was reinitiated as patient was not taking medication. Has been taking for the past 2 weeks with compliance, without any side effects. # Asthma: Continue Symbicort twice daily # Joint pain: Ibuprofen and acetaminophen as needed # Back pain: Following with orthopedics at this time. Going through physical therapy twice weekly, going to contact orthopedics to inquire about imaging.States this is limiting her exercise at this time. Time spent with patient 30 minutes with greater than 50% on patient occasion and care coordination Follow-up in 4-6 weeks, sooner as needed All quetsions answered to patients satisfaction. Patient verbalized understanding of diagnosis and treatments explained. To call sooner prior to next visit it any questions/concerns arise. Case discussed with collaborating physician Haroldo Espana who reviewed the assessment and plan. Chart, medications, labs, vital signs reviewed. Dictation was accomplished with the use of Access [employer] voice recognition software, prone to medical misidentifications and grammatical errors. This is unintentional and the practitioner does try to identify and correct these, but some could still be present. Please do not hesitate to contact practitioner for clarification. 06/25/2024 Anxiety (ICD-10 - F41.9) 05/22/2024: Weight 173, BMI 33. Patient is reestablishing with our weight loss program. Last time she was seen was in August 2023. Tried Wegovy, did not tolerate well secondary to side effects, also tried Contrave, for which she did not tolerate secondary to headaches. Will trial Zepbound. Discussed Zepbound 2.5 mg once weekly. Discussed proper use, side effects. Also discussed prior authorization process and insurance coverage. If no coverage consider [id number] costs. 06/25/24: Weight 171, BMI 33. Weight maintenance since last visit. Did not end up getting Zepbound because her health insurance states the medication is not in network. She is going to call her health insurance. Otherwise has taken Wegovy in the past and did not tolerate well, not a candidate for phentermine as she does have a history of tachycardia, and has already tried Contrave without significant improvement. Her insurance is changing to [employer] in September. She will call us with her insurance determination when she contacts them. If otherwise, will wait until September as patient states that she cannot pay [id number] for the medications. # Scheduled for colonoscopy July 2024 # Up-to-date on mammogram 12/2023 # Declines flu, COVID, shingles vaccine but will get tetanus vaccine today on 04/24/2024 # Going to follow with [facility] June 2024, having concerns for hot flashes and night sweats post hysterectomy. Did offer hormonal saliva testing and following with Dr. Carmen Espana, but patient states that she would prefer to follow-up with her [facility]. # Difficulty sleeping: Taking trazodone 150 mg at night as needed. Offered sleep study, for which patient declines today. 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 Atorvastatin 10 mg was reinitiated as patient was not taking medication. Has been taking for the past 2 weeks with compliance, without any side effects. # Asthma: Continue Symbicort twice daily # Joint pain: Ibuprofen and acetaminophen as needed # Back pain: Following with orthopedics at this time. Going through physical therapy twice weekly, going to contact orthopedics to inquire about imaging.States this is limiting her exercise at this time. Time spent with patient 30 minutes with greater than 50% on patient occasion and care coordination Follow-up in 4-6 weeks, sooner as needed All quetsions answered to patients satisfaction. Patient verbalized understanding of diagnosis and treatments explained. To call sooner prior to next visit it any questions/concerns arise. Case discussed with collaborating physician Haroldo Espana who reviewed the assessment and plan. Chart, medications, labs, vital signs reviewed. Dictation was accomplished with the use of Access [employer] voice recognition software, prone to medical misidentifications and grammatical errors. This is unintentional and the practitioner does try to identify and correct these, but some could still be present. Please do not hesitate to contact practitioner for clarification. 05/22/2024 Hyperlipidemia, unspecified hyperlipidemia type (ICD-10 - E78.5) 05/22/2024: Weight 173, BMI 33. Patient is reestablishing with our weight loss program. Last time she was seen was in August 2023. Tried Wegovy, did not tolerate well secondary to side effects, also tried Contrave, for which she did not tolerate secondary to headaches. Will trial Zepbound. Discussed Zepbound 2.5 mg once weekly. Discussed proper use, side effects. Also discussed prior authorization process and insurance coverage. If no coverage consider [id number] costs. # Scheduled for colonoscopy July 2024 # Up-to-date on mammogram 12/2023 # Declines flu, COVID, shingles vaccine but will get tetanus vaccine today on 04/24/2024 # Going to follow with [facility] June 2024, having concerns for hot flashes and night sweats post hysterectomy. Did offer hormonal saliva testing and following with Dr. Carmen Espana, but patient states that she would prefer to follow-up with her [facility]. # Difficulty sleeping: Taking trazodone 150 mg at night as needed. Offered sleep study, for which patient declines today. 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 Atorvastatin 10 mg was reinitiated as patient was not taking medication. Has been taking for the past 2 weeks with compliance, without any side effects. # Asthma: Continue Symbicort twice daily # Joint pain: Ibuprofen and acetaminophen as needed Time spent with patient 30 minutes with greater than 50% on patient occasion and care coordination Follow-up in 4 weeks, sooner as needed All quetsions answered to patients satisfaction. Patient verbalized understanding of diagnosis and treatments explained. To call sooner prior to next visit it any questions/concerns arise. Case discussed with collaborating physician Haroldo Espana who reviewed the assessment and plan. Chart, medications, labs, vital signs reviewed. Dictation was accomplished with the use of Access [employer] voice recognition software, prone to medical misidentifications and grammatical errors. This is unintentional and the practitioner does try to identify and correct these, but some could still be present. Please do not hesitate to contact practitioner for clarification. 04/24/2024 Anxiety (ICD-10 - F41.9) Carmen is a pleasant 53-year-old female who presents the office for a complete physical examination. # Due for blood work, ordered today # Scheduled for colonoscopy July 2024 # Up-to-date on mammogram 12/2023 # Declines flu, COVID, shingles vaccine but will get tetanus vaccine today on 04/24/2024 # Going to follow with [facility] June 2024, having concerns for hot flashes and night sweats post hysterectomy. Did offer hormonal saliva testing and following with Dr. Carmen Espana, but patient states that she would prefer to follow-up with her [facility]. # Also admits to more difficulty with weight gain. Weight 178 with a BMI of 34 today. Used to follow with our weight loss program, was doing Contrave but stopped medication secondary to headaches post hysterectomy. Will obtain full panel blood work and follow-up in 4 weeks for weight management for body scan. Could consider alternative options. # Difficulty sleeping: Taking trazodone 150 mg at night as needed. Offered sleep study, for which patient declines today. 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 Patient seen and examined. Comprehensive discussion was done on the following. 1. Nutrition: It is important to follow a healthy diet based on lots of vegetables and legumes and good fat. Avoid processed food and processed carbohydrates. Prepare your own meals. Read labels and avoid high fructose corn syrup, processed chemicals added to increase shelf life and preprepared meals. Avoid fast foods. Eat slowly and plan meals for a week. Try to count calories and be mindful off daily calorie intake. Get into the habit of keeping an eye on your weight by using an appropriate scale. Learn to log exercise and discussed fitness Apps like [employer] which can help keep log off calories taken versus calories burned. Local food should be preferred. Discussed Dirty Dozen Versus Clean Fifteen. Discussed healthy supplements like fish oil, Tumeric, Curcumin, Melatonin, Resveratrol, Probiotics, Vitamin-D, Alpha-Lipoic acid, Vitamin-D and coconut oil. 2. It is important to exercise regularly. Is a good habit to walk at least 30 minutes a day. Gentle weightlifting with standard precautions to protect the back. Finding activity like cycling or hiking and get into the habit of engaging in it. Stretching before and after the exercises important. It is also important to contact me if there are any problems like shortness of breath, chest pain, back pain and joint or muscle pain associated with the exercise. 3. Discussed age appropriate screening guidelines. Colonoscopy needs to start at age 50 with stool for occult blood as appropriate. There is a new test that can test for genetic abnormalities in the stool sample, Cologuard. This would not replace a colonoscopy but could be used as a screening tool for patients who do not want a colonoscopy. We discussed the importance of early detection of colon cancer. 4. Discussed current guidelines with respect to breast examination, mammogram and pap smear for early detection of breast and cervical cancer. Patient advised to follow up with these appointments. 5. Discussed safe driving and no use of smart phone while driving 6. Age-appropriate immunizations were discussed. A tetanus booster is needed every 10 years. Flu vaccine is recommended every year just before the start of the flu season. Shingles vaccine is recommended after age 50 but not all insurances cover it. Pneumonia vaccine is given after age 65 unless there are certain comorbidities for which it is started earlier. 7. Diagnostic labs were discussed. These could include/not limited to CBC CMP and lipids with fasting blood glucose and insulin levels. Vitamin D and hemoglobin A1c testing might be appropriate. All quetsions answered to patients satisfaction. Patient verbalized understanding of diagnosis and treatments explained. To call sooner prior to next visit it any questions/concerns arise. Case discussed with collaborating physician Haroldo Espana who reviewed the assessment and plan. Chart, medications, labs, vital signs reviewed. Dictation was accomplished with the use of Access [employer] voice recognition software, prone to medical misidentifications and grammatical errors. This is unintentional and the practitioner does try to identify and correct these, but some could still be present. Please do not hesitate to contact practitioner for clarification. 04/24/2024 Vitamin D deficiency, unspecified (ICD-10 - E55.9) 02/28/2024 Close exposure to COVID-19 virus (ICD-10 - Z20.822) Patient will be treated with azithromycin and prednisone taper. Will watch for any asthma exacerbation. Recommended vitamin D and probiotics to build up her immune system along with catching up on her sleep. Discussed risk benefits of HRT and follow-up with primary care provider RSV awab came positive Pt educated on result RX plan 02/28/2024 Infection due to respiratory syncytial virus (RSV), unspecified infection type (ICD-10 - B33.8) Patient will be treated with azithromycin and prednisone taper. Will watch for any asthma exacerbation. Recommended vitamin D and probiotics to build up her immune system along with catching up on her sleep. Discussed risk benefits of HRT and follow-up with primary care provider RSV awab came positive Pt educated on result RX plan 04/24/2024 Encounter for immunization (ICD-10 - Z23) Carmen is a pleasant 53-year-old female who presents the office for a complete physical examination. # Due for blood work, ordered today # Scheduled for colonoscopy July 2024 # Up-to-date on mammogram 12/2023 # Declines flu, COVID, shingles vaccine but will get tetanus vaccine today on 04/24/2024 # Going to follow with [facility] June 2024, having concerns for hot flashes and night sweats post hysterectomy. Did offer hormonal saliva testing and following with Dr. Carmen Espana, but patient states that she would prefer to follow-up with her [facility]. # Also admits to more difficulty with weight gain. Weight 178 with a BMI of 34 today. Used to follow with our weight loss program, was doing Contrave but stopped medication secondary to headaches post hysterectomy. Will obtain full panel blood work and follow-up in 4 weeks for weight management for body scan. Could consider alternative options. # Difficulty sleeping: Taking trazodone 150 mg at night as needed. Offered sleep study, for which patient declines today. 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 Patient seen and examined. Comprehensive discussion was done on the following. 1. Nutrition: It is important to follow a healthy diet based on lots of vegetables and legumes and good fat. Avoid processed food and processed carbohydrates. Prepare your own meals. Read labels and avoid high fructose corn syrup, processed chemicals added to increase shelf life and preprepared meals. Avoid fast foods. Eat slowly and plan meals for a week. Try to count calories and be mindful off daily calorie intake. Get into the habit of keeping an eye on your weight by using an appropriate scale. Learn to log exercise and discussed fitness Apps like Quinyx AB which can help keep log off calories taken versus calories burned. Local food should be preferred. Discussed Dirty Dozen Versus Clean Fifteen. Discussed healthy supplements like fish oil, Tumeric, Curcumin, Melatonin, Resveratrol, Probiotics, Vitamin-D, Alpha-Lipoic acid, Vitamin-D and coconut oil. 2. It is important to exercise regularly. Is a good habit to walk at least 30 minutes a day. Gentle weightlifting with standard precautions to protect the back. Finding activity like cycling or hiking and get into the habit of engaging in it. Stretching before and after the exercises important. It is also important to contact me if there are any problems like shortness of breath, chest pain, back pain and joint or muscle pain associated with the exercise. 3. Discussed age appropriate screening guidelines. Colonoscopy needs to start at age 50 with stool for occult blood as appropriate. There is a new test that can test for genetic abnormalities in the stool sample, Cologuard. This would not replace a colonoscopy but could be used as a screening tool for patients who do not want a colonoscopy. We discussed the importance of early detection of colon cancer. 4. Discussed current guidelines with respect to breast examination, mammogram and pap smear for early detection of breast and cervical cancer. Patient advised to follow up with these appointments. 5. Discussed safe driving and no use of smart phone while driving 6. Age-appropriate immunizations were discussed. A tetanus booster is needed every 10 years. Flu vaccine is recommended every year just before the start of the flu season. Shingles vaccine is recommended after age 50 but not all insurances cover it. Pneumonia vaccine is given after age 65 unless there are certain comorbidities for which it is started earlier. 7. Diagnostic labs were discussed. These could include/not limited to CBC CMP and lipids with fasting blood glucose and insulin levels. Vitamin D and hemoglobin A1c testing might be appropriate. All quetsions answered to patients satisfaction. Patient verbalized understanding of diagnosis and treatments explained. To call sooner prior to next visit it any questions/concerns arise. Case discussed with collaborating physician Haroldo Espana who reviewed the assessment and plan. Chart, medications, labs, vital signs reviewed. Dictation was accomplished with the use of Access MediQuip voice recognition software, prone to medical misidentifications and grammatical errors. This is unintentional and the practitioner does try to identify and correct these, but some could still be present. Please do not hesitate to contact practitioner for clarification. 05/22/2024 Anxiety (ICD-10 - F41.9) 05/22/2024: Weight 173, BMI 33. Patient is reestablishing with our weight loss program. Last time she was seen was in August 2023. Tried Wegovy, did not tolerate well secondary to side effects, also tried Contrave, for which she did not tolerate secondary to headaches. Will trial Zepbound. Discussed Zepbound 2.5 mg once weekly. Discussed proper use, side effects. Also discussed prior authorization process and insurance coverage. If no coverage consider [id number] costs. # Scheduled for colonoscopy July 2024 # Up-to-date on mammogram 12/2023 # Declines flu, COVID, shingles vaccine but will get tetanus vaccine today on 04/24/2024 # Going to follow with [facility] June 2024, having concerns for hot flashes and night sweats post hysterectomy. Did offer hormonal saliva testing and following with Dr. Carmen Espana, but patient states that she would prefer to follow-up with her [facility]. # Difficulty sleeping: Taking trazodone 150 mg at night as needed. Offered sleep study, for which patient declines today. 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 Atorvastatin 10 mg was reinitiated as patient was not taking medication. Has been taking for the past 2 weeks with compliance, without any side effects. # Asthma: Continue Symbicort twice daily # Joint pain: Ibuprofen and acetaminophen as needed Time spent with patient 30 minutes with greater than 50% on patient occasion and care coordination Follow-up in 4 weeks, sooner as needed All quetsions answered to patients satisfaction. Patient verbalized understanding of diagnosis and treatments explained. To call sooner prior to next visit it any questions/concerns arise. Case discussed with collaborating physician Haroldo Espana who reviewed the assessment and plan. Chart, medications, labs, vital signs reviewed. Dictation was accomplished with the use of Access MediQuip voice recognition software, prone to medical misidentifications and grammatical errors. This is unintentional and the practitioner does try to identify and correct these, but some could still be present. Please do not hesitate to contact practitioner for clarification. 04/24/2024 Encounter for screening for other suspected endocrine disorder (ICD-10 - Z13.29) 06/25/2024 Mixed hyperlipidemia (ICD-10 - E78.2) 05/22/2024: Weight 173, BMI 33. Patient is reestablishing with our weight loss program. Last time she was seen was in August 2023. Tried Wegovy, did not tolerate well secondary to side effects, also tried Contrave, for which she did not tolerate secondary to headaches. Will trial Zepbound. Discussed Zepbound 2.5 mg once weekly. Discussed proper use, side effects. Also discussed prior authorization process and insurance coverage. If no coverage consider [id number] costs. 06/25/24: Weight 171, BMI 33. Weight maintenance since last visit. Did not end up getting Zepbound because her health insurance states the medication is not in network. She is going to call her health insurance. Otherwise has taken Wegovy in the past and did not tolerate well, not a candidate for phentermine as she does have a history of tachycardia, and has already tried Contrave without significant improvement. Her insurance is changing to [employer] in September. She will call us with her insurance determination when she contacts them. If otherwise, will wait until September as patient states that she cannot pay [id number] for the medications. # Scheduled for colonoscopy July 2024 # Up-to-date on mammogram 12/2023 # Declines flu, COVID, shingles vaccine but will get tetanus vaccine today on 04/24/2024 # Going to follow with [facility] June 2024, having concerns for hot flashes and night sweats post hysterectomy. Did offer hormonal saliva testing and following with Dr. Carmen Espana, but patient states that she would prefer to follow-up with her [facility]. # Difficulty sleeping: Taking trazodone 150 mg at night as needed. Offered sleep study, for which patient declines today. 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 Atorvastatin 10 mg was reinitiated as patient was not taking medication. Has been taking for the past 2 weeks with compliance, without any side effects. # Asthma: Continue Symbicort twice daily # Joint pain: Ibuprofen and acetaminophen as needed # Back pain: Following with orthopedics at this time. Going through physical therapy twice weekly, going to contact orthopedics to inquire about imaging.States this is limiting her exercise at this time. Time spent with patient 30 minutes with greater than 50% on patient occasion and care coordination Follow-up in 4-6 weeks, sooner as needed All quetsions answered to patients satisfaction. Patient verbalized understanding of diagnosis and treatments explained. To call sooner prior to next visit it any questions/concerns arise. Case discussed with collaborating physician Haroldo Espana who reviewed the assessment and plan. Chart, medications, labs, vital signs reviewed. Dictation was accomplished with the use of Access MediQuip voice recognition software, prone to medical misidentifications and grammatical errors. This is unintentional and the practitioner does try to identify and correct these, but some could still be present. Please do not hesitate to contact practitioner for clarification. 06/25/2024 Nutritional counseling (ICD-10 - Z71.3) 05/22/2024: Weight 173, BMI 33. Patient is reestablishing with our weight loss program. Last time she was seen was in August 2023. Tried Wegovy, did not tolerate well secondary to side effects, also tried Contrave, for which she did not tolerate secondary to headaches. Will trial Zepbound. Discussed Zepbound 2.5 mg once weekly. Discussed proper use, side effects. Also discussed prior authorization process and insurance coverage. If no coverage consider [id number] costs. 06/25/24: Weight 171, BMI 33. Weight maintenance since last visit. Did not end up getting Zepbound because her health insurance states the medication is not in network. She is going to call her health insurance. Otherwise has taken Wegovy in the past and did not tolerate well, not a candidate for phentermine as she does have a history of tachycardia, and has already tried Contrave without significant improvement. Her insurance is changing to [employer] in September. She will call us with her insurance determination when she contacts them. If otherwise, will wait until September as patient states that she cannot pay [id number] for the medications. # Scheduled for colonoscopy July 2024 # Up-to-date on mammogram 12/2023 # Declines flu, COVID, shingles vaccine but will get tetanus vaccine today on 04/24/2024 # Going to follow with [facility] June 2024, having concerns for hot flashes and night sweats post hysterectomy. Did offer hormonal saliva testing and following with Dr. Carmen Espana, but patient states that she would prefer to follow-up with her [facility]. # Difficulty sleeping: Taking trazodone 150 mg at night as needed. Offered sleep study, for which patient declines today. 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 Atorvastatin 10 mg was reinitiated as patient was not taking medication. Has been taking for the past 2 weeks with compliance, without any side effects. # Asthma: Continue Symbicort twice daily # Joint pain: Ibuprofen and acetaminophen as needed # Back pain: Following with orthopedics at this time. Going through physical therapy twice weekly, going to contact orthopedics to inquire about imaging.States this is limiting her exercise at this time. Time spent with patient 30 minutes with greater than 50% on patient occasion and care coordination Follow-up in 4-6 weeks, sooner as needed All quetsions answered to patients satisfaction. Patient verbalized understanding of diagnosis and treatments explained. To call sooner prior to next visit it any questions/concerns arise. Case discussed with collaborating physician Haroldo Espana who reviewed the assessment and plan. Chart, medications, labs, vital signs reviewed. Dictation was accomplished with the use of Access MediQuip voice recognition software, prone to medical misidentifications and grammatical errors. This is unintentional and the practitioner does try to identify and correct these, but some could still be present. Please do not hesitate to contact practitioner for clarification. 04/24/2024 Anemia due to vitamin B12 deficiency, unspecified B12 deficiency type (ICD-10 - D51.9) 04/24/2024 BMI 34.0-34.9,adult (ICD-10 - Z68.34) Carmen is a pleasant 53-year-old female who presents the office for a complete physical examination. # Due for blood work, ordered today # Scheduled for colonoscopy July 2024 # Up-to-date on mammogram 12/2023 # Declines flu, COVID, shingles vaccine but will get tetanus vaccine today on 04/24/2024 # Going to follow with [facility] June 2024, having concerns for hot flashes and night sweats post hysterectomy. Did offer hormonal saliva testing and following with Dr. Carmen Espana, but patient states that she would prefer to follow-up with her [facility]. # Also admits to more difficulty with weight gain. Weight 178 with a BMI of 34 today. Used to follow with our weight loss program, was doing Contrave but stopped medication secondary to headaches post hysterectomy. Will obtain full panel blood work and follow-up in 4 weeks for weight management for body scan. Could consider alternative options. # Difficulty sleeping: Taking trazodone 150 mg at night as needed. Offered sleep study, for which patient declines today. 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 Patient seen and examined. Comprehensive discussion was done on the following. 1. Nutrition: It is important to follow a healthy diet based on lots of vegetables and legumes and good fat. Avoid processed food and processed carbohydrates. Prepare your own meals. Read labels and avoid high fructose corn syrup, processed chemicals added to increase shelf life and preprepared meals. Avoid fast foods. Eat slowly and plan meals for a week. Try to count calories and be mindful off daily calorie intake. Get into the habit of keeping an eye on your weight by using an appropriate scale. Learn to log exercise and discussed fitness Apps like Quinyx AB which can help keep log off calories taken versus calories burned. Local food should be preferred. Discussed Dirty Dozen Versus Clean Fifteen. Discussed healthy supplements like fish oil, Tumeric, Curcumin, Melatonin, Resveratrol, Probiotics, Vitamin-D, Alpha-Lipoic acid, Vitamin-D and coconut oil. 2. It is important to exercise regularly. Is a good habit to walk at least 30 minutes a day. Gentle weightlifting with standard precautions to protect the back. Finding activity like cycling or hiking and get into the habit of engaging in it. Stretching before and after the exercises important. It is also important to contact me if there are any problems like shortness of breath, chest pain, back pain and joint or muscle pain associated with the exercise. 3. Discussed age appropriate screening guidelines. Colonoscopy needs to start at age 50 with stool for occult blood as appropriate. There is a new test that can test for genetic abnormalities in the stool sample, Cologuard. This would not replace a colonoscopy but could be used as a screening tool for patients who do not want a colonoscopy. We discussed the importance of early detection of colon cancer. 4. Discussed current guidelines with respect to breast examination, mammogram and pap smear for early detection of breast and cervical cancer. Patient advised to follow up with these appointments. 5. Discussed safe driving and no use of smart phone while driving 6. Age-appropriate immunizations were discussed. A tetanus booster is needed every 10 years. Flu vaccine is recommended every year just before the start of the flu season. Shingles vaccine is recommended after age 50 but not all insurances cover it. Pneumonia vaccine is given after age 65 unless there are certain comorbidities for which it is started earlier. 7. Diagnostic labs were discussed. These could include/not limited to CBC CMP and lipids with fasting blood glucose and insulin levels. Vitamin D and hemoglobin A1c testing might be appropriate. All quetsions answered to patients satisfaction. Patient verbalized understanding of diagnosis and treatments explained. To call sooner prior to next visit it any questions/concerns arise. Case discussed with collaborating physician Haroldo Espana who reviewed the assessment and plan. Chart, medications, labs, vital signs reviewed. Dictation was accomplished with the use of Access MediQuip voice recognition software, prone to medical misidentifications and grammatical errors. This is unintentional and the practitioner does try to identify and correct these, but some could still be present. Please do not hesitate to contact practitioner for clarification. Plan Of Treatment Pending Test Test Name Order Date LIPID PANEL, STANDARD 02/14/2023 LIPID PANEL, STANDARD 04/25/2023 LIPID PANEL, STANDARD 04/24/2024 COMPREHENSIVE METABOLIC PANEL 04/24/2024 COMPREHENSIVE METABOLIC PANEL 02/14/2023 CBC (INCLUDES DIFF/PLT) 02/14/2023 CBC (INCLUDES DIFF/PLT) 04/24/2024 URINALYSIS, COMPLETE 04/24/2024 URINALYSIS, COMPLETE 02/14/2023 INSULIN 04/24/2024 VITAMIN B12 04/24/2024 TSH 02/14/2023 VITAMIN D,25-OH,TOTAL,IA 02/14/2023 VITAMIN D,25-OH,TOTAL,IA 04/24/2024 LYME AB SCREEN 03/08/2023 TSH+T4F+T3Free 04/24/2024 Insurance Providers Payer Name Payer Address Payer Phone Subscriber Number Group Number Insured Name Patient Relationship to Insured Coverage Start Date Coverage End Date [employer] [address] [place] [address] [phone] [id number] Carmen Washburn Self - patient is the insured 2 Medications Administered Medication Instructions Date of Administration Dosage Notes MICC B12 INJECTION 07/03/2022 MICC B12 INJECTION 08/07/2022 Semaglutide 08/29/2022 lot # [id number] sema 0.25mg Semaglutide 09/06/2022 lot#[id number] 0.5 Semaglutide 09/13/2022 Semaglutide 09/19/2022 Semaglutide 09/27/2022 sema 0.5mg Semaglutide 10/04/2022 sema 0.25mg Semaglutide 10/11/2022 0.5 mg L tricep SQ Semaglutide 10/17/2022 0.5 mg L tricep SQ Semaglutide 10/25/2022 sema .5mg Semaglutide 11/01/2022 sema 05.mg Semaglutide 11/09/2022 0.5 mg L tricep SQ Semaglutide 11/15/2022 sema 0.5mg Semaglutide 11/23/2022 1 mg sema 1mg Semaglutide 11/30/2022 1 mg sema 1mg Semaglutide 12/06/2022 1 mL Semaglutide 12/14/2022 1 sema 1mg Semaglutide 12/21/2022 lot#[id number] 1mg Semaglutide 12/28/2022 1 sema 1mg Semaglutide 01/04/2023 1 sema 1mg Semaglutide 01/12/2023 Semaglutide 01/18/2023 1 mg Semaglutide 01/24/2023 1 mg Semaglutide 02/01/2023 1 mg Semaglutide 02/08/2023 1 Semaglutide 03/02/2023 0.50 mL Semaglutide 03/08/2023 1 mg Medical (General) History Medical History History ICD Code Hyperlipidemia E78.5 Asthma J45.909 Irritable bowel syndrome with constipati on K58.1 Sleeping difficulty G47.9 Migraine headache G43.909 Kidney stone N20.0 Surgical History Surgery Date(Month/Year) urethral stent ureterpscopy lithotripsy d and c hysterectomy 2023 ganglion cyst x 2 LEEP x 2
--- OUTSIDE RECORDS SUMMARY | 2024-12-30 19:45 | XMS_ITS | Patient Health Record ---
Author Organization [facility] Address [address] [place] [address] Care Team Providers Care Americanization Teacher Name Role Phone JAKE SOLITARIO Primary Care Provider Allergies Allergen (clinical drug ingredient) Drug/Non Drug Allergy documented on EMR Reaction Allergy Type Onset Date Status Sudafed Unknown Drug Allergy Active Reason For Referral No Information Medications Medication SIG (Take, Route, Frequency, Duration) Notes Start Date End Date Status Simvastatin 40 MG 1 tablet in the even ing Orally Once a day; Duration: 30 day(s) Active Asmanex HFA 100 MCG/ACT 2 puffs Inhalati on Twice a day Active Jolessa 0.15-0.03 MG 1 tablet Orally Onc e a day; Duration: 91 day(s) Active Eletriptan Hydrobromide 40 MG 1 tablet Orally Once a day as needed Active Topamax 50 MG 1 tablet Orally bid; Duration: 90 days 05/16/2019 Active Phentermine HCl 37.5 MG 1 tablet Orally Once a day; Duration: 90 days Active metFORMIN HCl 500 mg TAKE 1 TABLET DAILY WITH A MEAL Active Topiramate 50 mg TAKE 1 TABLET TWICE A DAY Active Social History Tobacco Use: Social History Observation Description Date Details (start date - stop date) Light tobacco s moker NA - NA Tobacco Use/Smoking Question Answer Notes Are you a light tobacco smoker Alcohol Screen (Audit-C) Question Answer Notes Did you have a drink contain ing alcohol in the past year? Yes How often did you have a dri nk containing alcohol in the past year? Monthly or less (1 point) Points 1 Interpretation Negative Tobacco use other than smoking: Question Answer Notes Are you an other tobacco user? No Problems Problem Type SNOMED Code ICD Code Onset Dates Problem Status W/U Status Risk Notes Problem Vitamin D deficiency (34138851) Vitamin D deficiency, unspecified (E55.9) Active confirmed Problem Obesity (398586765) Obesity, unspecified (E66.9) Active confirmed Problem Asthma without status asthmaticus (83064097) Unspecified asthma, uncomplicated (J45.909) Active confirmed Problem Body mass index 25-29 - overweight (373284673) Body mass index (BMI) 27.0-27.9, adult (Z68.27) Active confirmed Problem Body mass index 25-29 - overweight (312436438) Body mass index (BMI) 28.0-28.9, adult (Z68.28) Active confirmed Problem BMI 25-29 - overweight (839961194) Body mass index (BMI) 29.0-29.9, adult (Z68.29) Active confirmed Problem Body mass index 30+ - obesity (503168993) Body mass index (BMI) 30.0-30.9, adult (Z68.30) Active confirmed Problem Body mass index 30.00 to 34.99 (032882310970910) Body mass index (BMI) 31.0-31.9, adult (Z68.31) Active confirmed Problem Body mass index 30.00 to 34.99 (985797473746853) Body mass index (BMI) 32.0-32.9, adult (Z68.32) Active confirmed Problem Hyperlipidemia (52288073) Hyperlipidemia, unspecified (E78.5) Active confirmed Problem Irritable bowel syndrome (76360728) Other irritable bowel syndrome (K58.8) Active confirmed Problem Body mass index 30+ - obesity (255261638) Body mass index [BMI]30.0-30.9, adult (Z68.30) Active confirmed Plan Of Treatment Pending Test Test Name Order Date TSH 06/21/2017 Vitamin D, 25-Hydroxy 06/21/2017 Insurance Providers Payer Name Payer Address Payer Phone Subscriber Number Group Number Insured Name Patient Relationship to Insured Coverage Start Date Coverage End Date [facility] [address] [place] [phone] [id number] [place], Carmen Self - patient is the insured Medical (General) History Medical History History ICD Code hyperlipidemia class 1 obesity Surgical History Surgery Date(Month/Year) Hospitalization History Reason Date(Month/Year)
== END 2024-12-30 15:42 | disposition home or self-care (01) ==
LOC: HO.HPS 15:20
PROVIDERS: PCP Nurse Practitioner Family; Visit Provider Internal Medicine Pulmonary Disease
DX: J45.909 Unspecified asthma, uncomplicated (principal); Z91.09 Other allergy status, other than to drugs and biological substances
CPT/HCPCS: 99214